=== PATIENT | male | born 1975 | race Caucasian/White ===

== ENCOUNTER 2023-09-19 14:54 | Outpatient (OUT) | payer OTHER, SELFPAY ==
[2023-09-20 04:07] LABS: Testosterone 193 ng/dL (264-916)
== END 2023-09-19 14:55 | disposition home or self-care (01) ==
LOC: LAB 14:57
PROVIDERS: PCP Family Medicine; Visit Provider Family Medicine
DX: Z00.00 Encounter for general adult medical examination without abnormal findings (principal); Z12.5 Encounter for screening for malignant neoplasm of prostate
CPT/HCPCS: 36415; 84403; G0103

== ENCOUNTER 2023-11-16 15:55 | Outpatient (OUT) | payer OTHER, SELFPAY ==
--- OUTSIDE RECORDS SUMMARY | 2023-11-16 16:00 | XMS_ITS | CCD ---
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 Name Role Phone LASHAY, DR MERRITT Admitting Unavailable HOY, DR MERRITT Attending Unavailable HOY, DR MERRITT Primary Care Unavailable HOY, DR MERRITT Consulting Unavailable HOY, DR MERRITT Admitting Unavailable HOY, DR MERRITT Attending Unavailable HOY, DR MERRITT Primary Care Unavailable HOY, DR MERRITT Consulting Unavailable NILL, DR LILLY Admitting Unavailable NILL, DR LILLY Attending Unavailable HOY, DR MERRITT Primary Care Unavailable NILL, DR LILLY Consulting Unavailable HOY, DR MERRITT Admitting Unavailable HOY, DR MERRITT Attending Unavailable HOY, DR MERRITT Primary Care Unavailable HOY, DR MERRITT Admitting Unavailable HOY, DR MERRITT Attending Unavailable HOY, DR MERRITT Primary Care Unavailable HOY, DR MERRITT Consulting Unavailable WEST, DR LEO Nam Consulting Unavailable HOY, DR MERRITT Admitting Unavailable HOY, DR MERRITT Attending Unavailable HOY, DR MERRITT Primary Care Unavailable HOY, DR MERRITT Consulting Unavailable HOY, DR MERRITT Admitting Unavailable HOY, DR MERRITT Attending Unavailable HOY, DR MERRITT Primary Care Unavailable HOY, DR MERRITT Consulting Unavailable Problems Active Problems Problem Classification Problem Date Documented Da te Episodic/Chronic Disorders of lipid metabolism (2 sources) Hyperlipidemia, unspecified; Translations: [Pure hyperglyceridemia] Onset: 04-06-2022 Chronic Esophageal disorders (1 source) Gastro-esophageal reflux disease without esophagitis; Translations: [GERD WITHOUT ESOPHAGITIS] Onset: 11-03-2021 Chronic Residual codes; unclassified (4 sources) Obstructive sleep apnea (adult) (pediatric); Translations: [OBSTRUCTIVE SLEEP APNEA] Onset: 10-10-2022 Chronic Past or Other Problems Problem Classification Problem Date Documented Da te Episodic/Chronic Diabetes mellitus without complication (1 source) Other abnormal glucose; Translations: [OTHER ABNORMAL GLUCOSE] Onset: 04-06-2022 Episodic Nonspecific chest pain (4 sources) Chest pain, unspecified; Translations: [CHEST PAIN UNSPECIFIED] Onset: 11-21-2021 Episodic Other aftercare (1 source) Other long term care pharmacist (current) drug therapy; Translations: [OTH [facility] CURRENT DRUG THERAPY] Onset: 04-06-2022 Episodic Other and unspecified benign neoplasm (4 sources) Benign lipomatous neoplasm of skin and subcutaneous tissue of trunk; Translations: [SOTO LIPOMAT NEOPLSM SKIN SUBQ TRUNK] Onset: 12-14-2021 Episodic Other connective tissue disease (1 source) Pain in arm, unspecified; Translations: [PAIN IN ARM UNSPECIFIED] Onset: 11-24-2021 Episodic Other screening for suspected conditions (not mental disorders or infectious disease) (1 source) Encounter for screening for malignant neoplasm of colon; Translations: [ENC SCREEN MALIG NEOPLASM COLON] Onset: 04-06-2022 Episodic Results Test Name Value Interpretation Reference Range Facility PSA, FREE AND TOTAL RATIOon 04-05-2022 % Free PSA 44.0 % Normal [facility] Comment on above: Result Comment: The table below lists the probability of prostate cancer for men with non-suspicious NELIA results and total PSA between 4 and 10 ng/mL, by patient age (Layo et al, KHALIDA 1998, 279:1542). % Free PSA 50-64 yr 65-75 yr 0.00-10.00% 56% 55% 10.01-15.00% 24% 35% 15.01-20.00% 17% 23% 20.01-25.00% 10% 20% >25.00% 5% 9% Please note: Layo et al did not make specific recommendations regarding the use of percent free PSA for any other population of men. Performed By: #### P SAFREE ####[facility] [address] [place], [place] [address]AnFeliciano Parsons Prostate specific Ag [Mass/Vol] 0.5 ng/mL Normal 0.0-4.0 [facility] Comment on above: Result Comment: Bárbara MCGINNIS methodology. . According to the [employer] [place] [employer], Serum PSA should decrease and remain at undetectable levels after radical prostatectomy. The AUA defines biochemical recurrence as an initial PSA value 0.2 ng/mL or greater followed by a subsequent confirmatory PSA value 0.2 ng/mL or greater. Values obtained with different assay methods or kits cannot be used interchangeably. Results cannot be interpreted as absolute evidence of the presence or absence of malignant disease. Performed By: #### P SAFREE ####[facility] [address] [place] [id number] Parsons PSA, Free 0.22 ng/mL Normal N/A [facility] Comment on above: Result Comment: Bárbara snider ECLIA methodology. Performed By: #### P SAFREE ####[facility] [address] [address]DrFeliciano Parsons BILIRUBIN CONJUGATED (DIRECT )on 04-04-2022 BILI, CONJUGATED 0.1 mg/dL Normal 0.0-0.2 [facility] Comment on above: Performed By: #### D BEBE, LIPID, FT3, TSH, T4, CMP #### [facility] [address] [address] [address] Eryn Parsons CBC AUTO DIFFon 04-04-2022 BASO # 0.0 103/ul Normal 0.0-0.1 [facility] Comment on above: Performed By: #### C BC ####[facility] [address] [address]DrFeliciano Parsons Basophils/100 WBC (Bld) 0.4 % Normal 0.2-2.0 [facility] Comment on above: Performed By: #### C BC ####[facility] [address] [place], [place] [address]DrFeliciano Parsons EO # 0.1 103/ul Normal 0.0-0.7 [facility] Comment on above: Performed By: #### C BC ####[facility] [address] [place] [address]DrFeliciano Parsons Eosinophils/100 WBC (Bld) 1.4 % Normal 0.9-7.0 [facility] Comment on above: Performed By: #### C BC ####[facility] [address] [place] [address]DrFeliciano Parsons Erythrocyte distribution width (RBC) [Ratio] 13.2 % Normal 11.0-15.0 [facility] Comment on above: Performed By: #### C BC ####[facility] [address] [place] [address]DrFeliciano Parsons Hematocrit (Bld) [Volume fraction] 46.1 % Normal 42.0-54.0 [facility] Comment on above: Performed By: #### C BC ####[facility] [address] [place], [place] [address]DrFeliciano Parsons Hemoglobin (Bld) [Mass/Vol] 15.2 g/dL Normal 14.0-18.0 [facility] Comment on above: Performed By: #### C BC ####[facility] [address] [place], [place] [address]DrFeliciano Parsons IG # 0.03 10e3/ul Normal 0.00-0.03 [facility] Comment on above: Performed By: #### C BC ####[facility] [address] [place], [place] [address]Dr. Eryn Parsons IG % 0.4 % Normal 0.0-0.5 [facility] Comment on above: Performed By: #### C BC ####[facility] [address] [place], [place] [address]DrFeliciano Parsons LYMPH # 2.4 103/ul Normal 1.2-3.8 [facility] Comment on above: Performed By: #### C BC ####[facility] [address] [place], [place] [address]DrFeliciano Parsons Lymphocytes/100 WBC (Bld) 31.8 % Normal 20.5-60.0 [facility] Comment on above: Performed By: #### C BC ####[facility] [address] [place], [place] [address]DrFeliciano Parsons MANUAL DIFF REQ NO Normal [facility] Comment on above: Performed By: #### C BC ####[facility] [address] [place], [place] [address]DrFeliciano Parsons MCH (RBC) [Entitic mass] 28.6 pg Normal 25.9-34.0 [facility] Comment on above: Performed By: #### C BC ####[facility] [address] [place] [address]Dr. Eryn Parsons MCHC (RBC) [Mass/Vol] 33.0 g/dL Normal 29.9-35.2 [facility] Comment on above: Performed By: #### C BC ####[facility] [address] [address]Dr. Eryn Parsons MCV (RBC) [Entitic vol] 86.8 fL Normal 80.0-94.0 [facility] Comment on above: Performed By: #### C BC ####[facility] [address] [place], [place] [address]DrFeliciano Parsons MONO # 0.6 103/ul Normal 0.3-0.8 [facility] Comment on above: Performed By: #### C BC ####[facility] [address] [place], [place] [address]Dr. Eryn Parsons Monocytes/100 WBC (Bld) 7.2 % Normal 1.7-12.0 [facility] Comment on above: Performed By: #### C BC ####[facility] [address] [place], [place] [address]DrFeliciano Parsons NEUT # 4.5 103/ul Normal 1.4-6.5 [facility] Comment on above: Performed By: #### C BC ####[facility] [address] [place], [place] [address]Dr. Eryn Parsons Neutrophils/100 WBC (Bld) 58.8 % Normal 43.0-75.0 [facility] Comment on above: Performed By: #### C BC ####[facility] [address] [place], [place] [address]DrFeliciano Parsons Platelet mean volume (Bld) [Entitic vol] 10.1 fL Normal 9.5-13.5 [facility] Comment on above: Performed By: #### C BC ####[facility] [address] [place], [place] [address]Dr. Eryn Parsons PLT 258 103/ul Normal 150-450 [facility] Comment on above: Performed By: #### C BC ####[facility] [address] [place] [id number]. Eryn Parsons RBC 5.31 106/ul Normal 4.70-6.10 [facility] Comment on above: Performed By: #### C BC ####[facility] [address] [place] [id number] Parsons WBC 7.6 103/ul Normal 4.0-11.0 [facility] Comment on above: Performed By: #### C BC ####[facility] [address] [place] [id number]. Eryn Parsons FREE T3on 04-04-2022 FREE T3 2.69 pg/mlL Normal 2.18-3.98 [facility] Comment on above: Performed By: #### D BEBE, LIPID, FT3, TSH, T4, CMP #### [facility] [address] [address] [address] Eryn Parsons GLYCOHEMOGLOBIN A1Con 2021 ADA RECOMMENDATION SEE BELOW Normal [facility] Comment on above: Result Comment: ADA RECOMMENDED LIMIT 4.0 - 6.0 ADA THERAPEUTIC TARGET < 7.0 ACTION SUGGESTED > 7.0 Performed By: #### A 1C ####[facility] [address] [place] [id number] Parsons Glucose [Mass/Vol] 117 mg/dL Normal [facility] Comment on above: Performed By: #### A 1C ####[facility] [address] [place] [id number]. Eryn Parsons HbA1c (Bld) [Mass fraction] 5.7 % Normal 4.5-6.2 [facility] Comment on above: Performed By: #### A 1C ####[facility] [address] [place] [address]Dr. Eryn Parsons LIPID PROFILEon 04-04-2022 CHOL-HDL RATIO NORM SEE BELOW Normal [facility] Comment on above: Result Comment: 3.3 - 4.4 LOW RISK 4.4 - 7.1 AVERAGE RISK 7.1 - 11.0 MODERATE RISK >11.0 HIGH RISK Performed By: #### D BEBE, LIPID, FT3, TSH, T4, CMP #### [facility] [address] [place] [address] Dr. Eryn Parsons Cholesterol [Mass/Vol] 212 mg/dL Critically high <=200 [facility] Comment on above: Performed By: #### D BEBE, LIPID, FT3, TSH, T4, CMP #### [facility] [address] [place] [address] Dr. Eryn Parosns Cholesterol in HDL [Mass/Vol] 45 mg/dL Normal 40-60 [facility] Comment on above: Performed By: #### D BEBE, LIPID, FT3, TSH, T4, CMP #### [facility] [address] [place] [address] Dr. Eryn Parsons Cholesterol in LDL [Mass/Vol] 128.2 mg/dL Normal [facility] Comment on above: Performed By: #### D BEBE, LIPID, FT3, TSH, T4, CMP #### [facility] [address] [place] [address] Dr. Eryn Parsons Cholesterol.total/ Cholesterol in HDL [Mass ratio] 4.7 {ratio} Normal [facility] Comment on above: Performed By: #### D BEBE, LIPID, FT3, TSH, T4, CMP #### [facility] [address] [place] [address] Dr. Eryn Parsons HDL NORMAL > or = 60 mg/dl - LO W CARDIOVASCULAR RISK <40 mg/dl - HIGH CARDIOVASCULAR RISK Normal [facility] Comment on above: Performed By: #### D BEBE, LIPID, FT3, TSH, T4, CMP #### [facility] [address] [place] [address] Dr. Eryn Parsons LDL CALC NORMAL SEE BELOW Normal [facility] Comment on above: Result Comment: <100 mg/dl OPTIMAL 100 - 129 mg/dl NEAR OR ABOVE OPTIMAL 130 - 159 mg/dl BORDERLINE HIGH 160 - 189 mg/dl HIGH >190 mg/dl VERY HIGH Performed By: #### D BEBE, LIPID, FT3, TSH, T4, CMP #### [facility] [address] [address] [address] Eryn Parsons Triglyceride [Mass/Vol] 194 mg/dL Critically high <=150 [facility] Comment on above: Performed By: #### D BEBE, LIPID, FT3, TSH, T4, CMP #### [facility] [address] [address] [address] Eryn Parsons VLDL CALC 38.8 mg/dL Normal [facility] Comment on above: Performed By: #### D BEBE, LIPID, FT3, TSH, T4, CMP #### [facility] [address] [place] [address] Dr. Eryn Parsons OCC BLD IMMUNO SCREENon 03-22 OCCULT BLOOD Negative Normal NEGATIVE [facility] Comment on above: Performed By: #### O BSCRN #### [facility] [address] [place] [address] Dr. Eryn Parsons PROF 14(COMP METB)on 022 Albumin [Mass/Vol] 4.1 g/dL Normal 3.4-5.0 [facility] Comment on above: Performed By: #### D BEBE, LIPID, FT3, TSH, T4, CMP #### [facility] [address] [place] [address] Dr. Eryn Parsons Albumin/Globulin [Mass ratio] 1.2 {ratio} Normal [facility] Comment on above: Performed By: #### D BEBE, LIPID, FT3, TSH, T4, CMP #### [facility] [address] [place] [address] Dr. Eryn Parsons ALP [Catalytic activity/Vol] 81 U/L Normal 46-116 [facility] Comment on above: Performed By: #### D BEBE, LIPID, FT3, TSH, T4, CMP #### [facility] [address] [place] [address] Dr. Eryn Parsons ALT [Catalytic activity/Vol] 64 U/L Critically high 16-63 [facility] Comment on above: Performed By: #### D BEBE, LIPID, FT3, TSH, T4, CMP #### [facility] [address] [place], [place] [id number] Dr. Eryn Parsons Anion gap [Moles/Vol] 12.2 mmol/L Normal [facility] Comment on above: Performed By: #### D BEBE, LIPID, FT3, TSH, T4, CMP #### [facility] [address] [place] [address] Dr. Eryn Parsons AST [Catalytic activity/Vol] 25 U/L Normal 15-37 [facility] Comment on above: Performed By: #### D BEBE, LIPID, FT3, TSH, T4, CMP #### [facility] [address] [place] [address] Dr. Eryn Parsons Bilirubin [Mass/Vol] 0.4 mg/dL Normal 0.2-1.0 [facility] Comment on above: Performed By: #### D BEBE, LIPID, FT3, TSH, T4, CMP #### [facility] [address] [place] [address] Dr. Eryn Parsons Calcium [Mass/Vol] 9.2 mg/dL Normal 8.5-10.1 [facility] Comment on above: Performed By: #### D BEBE, LIPID, FT3, TSH, T4, CMP #### [facility] [address] [place] [address] Dr. Eryn Parsons Chloride [Moles/Vol] 103 mmol/L Normal 98-107 [facility] Comment on above: Performed By: #### D BEBE, LIPID, FT3, TSH, T4, CMP #### [facility] [address] [place] [address] Dr. Eryn Parsons CO2 [Moles/Vol] 28.7 mmol/L Normal 21.0-32.0 [facility] Comment on above: Performed By: #### D BEBE, LIPID, FT3, TSH, T4, CMP #### [facility] [address] [place] [address] Dr. Eryn Parsons Creatinine [Mass/Vol] 1.00 mg/dL Normal 0.70-1.30 [facility] Comment on above: Performed By: #### D BEBE, LIPID, FT3, TSH, T4, CMP #### [facility] [address] [address] [address] Eryn Parsons EGFR-AF URUGUAYAN >60 Normal >=60 [facility] Comment on above: Performed By: #### D BEBE, LIPID, FT3, TSH, T4, CMP #### [facility] [address] [place] [address] Dr. Eryn Parsons EGFR-NON AF URUGUAYAN >60 Normal >=60 [facility] Comment on above: Performed By: #### D BEBE, LIPID, FT3, TSH, T4, CMP #### [facility] [address] [place] [address] Dr. Eryn Parsons Globulin (S) [Mass/Vol] 3.5 g/dL Normal [facility] Comment on above: Performed By: #### D BEBE, LIPID, FT3, TSH, T4, CMP #### [facility] [address] [place] [address] Dr. Eryn Parsons Glucose [Mass/Vol] 97 mg/dL Normal 74-106 [facility] Comment on above: Performed By: #### D BEBE, LIPID, FT3, TSH, T4, CMP #### [facility] [address] [place] [address] Dr. Eryn Parsons Potassium [Moles/Vol] 3.9 mmol/L Normal 3.5-5.1 [facility] Comment on above: Performed By: #### D BEBE, LIPID, FT3, TSH, T4, CMP #### [facility] [address] [place] [address] Dr. Eryn Parsons Protein [Mass/Vol] 7.6 g/dL Normal 6.4-8.2 [facility] Comment on above: Performed By: #### D BEBE, LIPID, FT3, TSH, T4, CMP #### [facility] [address] [place] [address] Dr. Eryn Parsons Sodium [Moles/Vol] 140 mmol/L Normal 136-145 [facility] Comment on above: Performed By: #### D BEBE, LIPID, FT3, TSH, T4, CMP #### [facility] [address] [place] [address] Dr. Eryn Parsons Urea nitrogen [Mass/Vol] 14.0 mg/dL Normal 7.0-18.0 [facility] Comment on above: Performed By: #### D BEBE, LIPID, FT3, TSH, T4, CMP #### [facility] [address] [place] [address] Dr. Eryn Parsons Urea nitrogen/Creatinin e [Mass ratio] 14.0 mg/mg Normal [facility] Comment on above: Performed By: #### D BEBE, LIPID, FT3, TSH, T4, CMP #### [facility] [address] [place] [address] Dr. Eryn Parsons T4on 04-04-2022 T4 [Mass/Vol] 7.40 ug/dL Normal 4.50-12.10 [facility] Comment on above: Performed By: #### D BEBE, LIPID, FT3, TSH, T4, CMP #### [facility] [address] [place] [address] Dr. Eryn Parsons TSHon 04-04-2022 TSH 2.794 uIU/mL Normal 0.358-3.740 [facility] Comment on above: Performed By: #### D BEBE, LIPID, FT3, TSH, T4, CMP #### [facility] [address] [place] [address] Dr. Eryn Parsons TSH RANGE SEE BELOW Normal [facility] Comment on above: Result Comment: <0.3 4 UIU/ml HYPERTHYROID 0.34-5.60 UIU/ml EUTHYROID >5.60 UIU/ml HYPOTHYROID Performed By: #### D BEBE, LIPID, FT3, TSH, T4, CMP #### [facility] [address] [place] [address] Dr. Eryn Parsons ED Noteon 02-16-2022 ED Note-Physician Basic Information Time Seen: Carrie Pat PA-C 10/24/2021 12:08 Chief Complaint chest pain started last night around 6pm with L arm numbness/tingling since 0630 this morning. denies SOB. 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 denies N/V/D. History of Present Illness Patient is a 46-year-old male with a history of HTN, HLD, GERD who presents the ED today from home with his for complaint of chest pain since 1800 yesterday. He says he was sitting on the couch yesterday watching TV when it felt like something was squeezing and sitting on my chest . Patient tells me the sensation has been constant since then. He went to sleep with it and awoke with it. He did not come to the ED last night because he thought it was his GERD. His encouraged him to come to the ED today because chest pain is now associated with left arm numbness and tingling. He took 2 baby aspirin yesterday and 1 this morning. He has not tried any other medications. Patient also endorses nonproductive cough and generalized headache that began yesterday. He localizes the headache to right posterior occiput. He says that his chest pain is more bothersome than the headache. Patient denies vision changes, speech changes, dizziness, lightheadedness, syncope, shortness of breath, palpitations abdominal pain, nausea, vomiting, diarrhea. His last bowel movement was yesterday evening it was normal. Patient denies any trauma or injury. Patient denies any recent travel, tobacco use history of bleeding or clotting disorders. He says that his mother has had multiple CVAs that began in her 30s. He has a strong family history of both CAD, HTN and TN. Review of Systems ROS: Constitutional: Denies fever, chills, malaise, weight changes, night sweats HEENT: + Headache. Denies vision changes, diplopia, sore throat, nasal congestion, sinus pain/pressure Pulm: + Nonproductive cough. Denies SOB, hemoptysis, wheezes, tobacco use CVS: Denies CP, palpitations, edema GI/: Denies abd pain, N/V/D, constipation, black/bloody stools, dysuria, hematuria MSK/Skin/Lymph: Denies injury/trauma, rashes, wounds, swollen lymphnodes Neuro/Psych: + Left arm numbness and tingling. Denies weakness, lightheadedness, dizziness, syncope, SI/HI Physical Exam Vitals & Measurements T: 36.9 ?C(Oral) HR: 82(Peripheral) RR: 18 BP: 125/77 SpO2: 98% HT: 178.0 cm HT: 178 cm WT: 107.2 kg WT: 107.2 kg BMI: 33.83 Appearance: Overweight, nontoxic-appearing, alert and oriented x3. Speaking in complete sentences. Calm. Cooperative. Vital signs reviewed, WNL Skin: Warm, dry, intact. Normal for ethnicity. No ecchymosis, open wounds, or rashes. Head: Normocephalic, atraumatic NECK: Supple. Nml Inspection with good ROM, no meningismus or palpable adenopathy Eyes: EOMI, PERRLA. Vision grossly intact. No nystagmus Respiratory: LCTA b/l with normal bilateral excursion. No wheezes, rhonchi, rales. Cardiovascular: RRR, no murmurs. 2+ symmetrical radial and dorsalis pedis pulses. Normal cap refill. No LE edema. Chest wall: Normal chest wall appearance and motion. Abdomen/GI: Soft, nontender, nondistended. No guarding, rigidity, rebound tenderness. NABS x4. No masses or organomegaly. Neuro: NIHSS stroke scale score 0. Oriented x 3, Speech Clear, cranial nerves grossly intact. Normal sensation to light touch in all 4 extremities. Extremities: 5 out of 5 strength bilateral upper extremities. No deformity noted on exam. Patient spontaneously moves all 4 extremities. Psych: Anxious mood. Affect appropriate to context. Denies SI/HI. Medical Decision Making Patient is a 46-year-old male presents the ED for chest pain and left arm numbness associated with headaches. Patient symptoms could be concerning for CVA, ACS, musculoskeletal strain, PE, cervical radiculopathy. Patient CBC is completely normal, D-dimer is negative electrolytes with no significant abnormalities. Troponin is negative. Head CT shows no acute intracranial process. Chest x-ray negative for any acute cardiopulmonary process. I suspect the patient's numbness may be secondary to a cervical radiculopathy. He he has a large lipoma on his back I do not think that this is causing and I think more likely is probably chronic changes in his cervical spine that may have not been evaluated or diagnosed yet. Patient's chest pain could be his GERD. I do not think that it is ACS he has had 2 - troponins and a normal ECG. PEs negative. Chest x-ray is normal so pneumonia and effusion are very unlikely. Patient's lipase level is normal. I considered gallbladder disease however he has no RUQ tenderness nor back pain and he said he has had a decreased appetite he is only been drinking bland foods in the past few days. It could be Covid we did not test for that here in the ED today. Assessment/Plan 1. Chest pain, unspecified (R07.9: Chest pain, unspecified) 2. Left arm numbness (R20.0: Anesthesia of skin) Orders: Al hydroxide/Mg hydroxide/simethicone, 30 mL, Susp-Oral, Oral, Once, Stop d (more content not included)... Normal [facility] Comment on above: Result Comment: Elec tronically Signed By: Hamida Zimmerman\.br\Date and Time Signed: 02/16/22 07:01 EDT\.br\Electronically Co-Signed By: Jac Doty DO\.br\Date and Time Co-Signed: 02/17/22 07:26 EDT Ambulatory Visit Summaryon 0 12-27-2021 Ambulatory Visit Summary FRANK LUO :1975 Visit Date:12/27/2021 Ambulatory Visit Instructions Your Care Team Attending Physician - CATALINA JACKMAN, Vijaya Cronin Primary Care Physician - Shaina Norman MD This Is Your Medications List amlodipine aspirin (aspirin 81 mg Oral EC Tab) dexlansoprazole (Dexilant) olmesartan ranitidine simvastatin (simvastatin 20 mg Tab) ubiquinone (Co Q-10) Procedures Performed Excision of lipoma (12/14/2021), Excision of lipoma of back (12/14/2021), EGD - Esophagogastroduodenoscopy (11/26/2018), Extraction of wisdom tooth, Tonsillectomy. Discharge Vitals Temperature (Temporal Artery) 36.1 ?C Medications What How Much When Instructions Unchanged amlodipine 10 Milligram By Mouth Every day Unchanged aspirin (aspirin 81 mg Oral EC Tab) 1 Tablets By Mouth Every day Unchanged dexlansoprazole (Dexilant) 60 Milligram By Mouth Every day Unchanged olmesartan 20 Milligram By Mouth Every day Unchanged ranitidine 150 Milligram By Mouth 2 times a day Unchanged simvastatin (simvastatin 20 mg Tab) 1 Tablets By Mouth Once a day (at bedtime) Unchanged ubiquinone (Co Q-10) 100 Milligram By Mouth Every day Allergies No Known Allergies Problems Ongoing - Any problem that you are currently receiving treatment for. BMI 34.0-34.9,adult Carbuncle Chest pain Contusion of multiple sites of right lower extremity Hemorrhoids Hx of gastroesophageal reflux (GERD) Hyperlipidemia Hypertriglyceridemia Lipoma of back Lipoma of flank Historical - Any problem that you are no longer receiving treatment for. acid reflux High Cholesterol HTN Normal [facility] General Surgery Office/Clini c Noteon 12-27-2021 General Surgery Office/Clinic Note Chief Complaint post operative folow up HPI Staff 13 day post operative follow up post excisional biopsy lipoma left flank and upper mid back. Minimal tenderness. Denies bleeding or drainage. History of Present Illness almost 2 weeks s/p excisional biopsy lipomas left flank and mid upper back; doing well, minimal soreness, no drainage; pathology consistent with lipomas. Review of Systems ROS - Provider Constitutional: no fever, no sweats, no weight loss. Eyes: no glasses, no blurred vision, no visual loss. ENMT: no dentures, no hoarseness, no swallowing difficulties, no hearing loss, no ear infection(s), no nose bleeds. Cardiovascular: normal blood pressure, no chest pain, regular heartbeat, no heart murmur. Respiratory: no shortness of breath, no cough, no asthma, no wheezing. Gastrointestinal: no nausea, no vomiting, no diarrhea, no constipation, no blood in stool, no change in bowel habits, no abdominal pain, no hepatitis. Genitourinary: no kidney stones, no urine infection, no dysuria. Musculoskeletal: no pain, no weakness. Skin: no changing moles, no rash, no skin lumps. Neurologic: no seizures, no epilepsy, no headache. Psychiatric: no emotional or psychiatric problem. Heme/Lymph: no bleeding problems, no anemia, no blood clots, no transfusions. Allergy/Immunologic: no swollen lymph nodes/glands, no IV drug abuse. Other: Additional ROS info: Except as noted in the above Review of Systems and in the History of Present Illness, all other systems have been reviewed and are negative or noncontributory. Physical Exam Vitals & Measurements T: 36.1 ?C(Temporal Artery) skin: incisions healing well, no drainage, minimal erythema around sutures Assessment/Plan 1. Lipoma of back, (D17.1: Benign lipomatous neoplasm of skin and subcutaneous tissue of trunk) sutures removed, doing well, call with problems/questions Lipoma of flank see # 1 Follow-up With When Contact Information CATALINA JACKMAN, Vijaya rConin, PILO Only if needed [address] [place] [address]- Additional Instructions: Problem List/Past Medical History Ongoing BMI 34.0-34.9,adult Carbuncle Chest pain Contusion of multiple sites of right lower extremity Hemorrhoids Hx of gastroesophageal reflux (GERD) Hyperlipidemia Hypertriglyceridemia Lipoma of back Lipoma of flank Historical acid reflux High Cholesterol HTN Procedure/Surgical History Excision of lipoma (12/14/2021), Excision of lipoma of back (12/14/2021), EGD - Esophagogastroduodenoscopy (11/26/2018), Extraction of wisdom tooth, Tonsillectomy. Medications amlodipine, 10 mg, Oral, Daily aspirin 81 mg Oral EC Tab, 81 mg= 1 tab(s), Oral, Daily Co Q-10, 100 mg, Oral, Daily Dexilant, 60 mg, Oral, Daily olmesartan, 20 mg, Oral, Daily ranitidine, 150 mg, Oral, BID simvastatin 20 mg Tab, 20 mg= 1 tab(s), Oral, Once a day (at bedtime) Allergies No Known Allergies Social History Alcohol - Denies Alcohol Use, 11/29/2021 Substance Abuse - Denies Substance Abuse, 11/29/2021 Tobacco Never (less than 100 in lifetime) Tobacco Use:. Never Smokeless Tobacco Use:., 11/29/2021 Family History Diabetes mellitus type 2: Father. Immunizations Vaccine Date Status influenza virus vaccine, inactivated 08/2021 Recorded Normal [facility] Comment on above: Result Comment: Elec tronically Signed By: CATALINA JACKMAN, Vijaya Cronin\.br\Date and Time Signed: 12/27/21 15:53 EST Pathology Noteon 12-20-2021 Pathology Note [id number]#[id number]:127 Normal [facility] Operative Reporton Operative Report [id number]#[id number]:127 [facility] Consent for Procedure/Surger yon 11-30-2021 Consent for Procedure/Surgery [id number]#[id number]:127 [facility] Ambulatory Visit Summaryon 0 11-29-2021 Ambulatory Visit Summary FRANK LUO :1975 Visit Date:11/29/2021 Ambulatory Visit Instructions Your Care Team Attending Physician - CATALINA JACKMAN, Vijaya Cronin Primary Care Physician - Shaina Norman MD This Is Your Medications List Contact prescribing physician if questions or concerns amlodipine aspirin (aspirin 81 mg Oral EC Tab) dexlansoprazole (Dexilant) olmesartan ranitidine simvastatin (simvastatin 20 mg Tab) ubiquinone (Co Q-10) Procedures Performed EGD - Esophagogastroduodenoscopy (11/26/2018), Extraction of wisdom tooth, Tonsillectomy. Discharge Vitals Temperature (Temporal Artery) 36.3 ?C Heart Rate (Peripheral) 68 Respiratory Rate 16 Blood Pressure 124/70 Height 180 cm Height 180.0 cm Weight 111.4 kg Weight 111.4 kg BMI 34.38 Medications What How Much When Instructions Unchanged amlodipine 10 Milligram By Mouth Every day Contact prescribing physician if questions or concerns Unchanged aspirin (aspirin 81 mg Oral EC Tab) 1 Tablets By Mouth Every day Contact prescribing physician if questions or concerns Unchanged dexlansoprazole (Dexilant) 60 Milligram By Mouth Every day Contact prescribing physician if questions or concerns Unchanged olmesartan 20 Milligram By Mouth Every day Contact prescribing physician if questions or concerns Unchanged ranitidine 150 Milligram By Mouth 2 times a day Contact prescribing physician if questions or concerns Unchanged simvastatin (simvastatin 20 mg Tab) 1 Tablets By Mouth Once a day (at bedtime) Contact prescribing physician if questions or concerns Unchanged ubiquinone (Co Q-10) 100 Milligram By Mouth Every day Contact prescribing physician if questions or concerns Allergies No Known Allergies Problems Ongoing - Any problem that you are currently receiving treatment for. BMI 34.0-34.9,adult Carbuncle Chest pain Contusion of multiple sites of right lower extremity Hemorrhoids Hx of gastroesophageal reflux (GERD) Hyperlipidemia Hypertriglyceridemia Historical - Any problem that you are no longer receiving treatment for. acid reflux High Cholesterol HTN Normal [facility] ECHOCARDIO M/2D COMPLETEon 0 11-21-2021 ECHOCARDIO M/2D COMPLETE Patient: FRANK LUO Exam Date: 11/21/2021 : 1975 Gender:M Ordering : DR SHAINA NORMAN . Admission #: [id number] Family : Order #: [id number] CLICK HERE TO VIEW EXAM ECHOCARDIOGRAM REPORT PROCEDURE: CARDIO PULMONARY ECHOCARDIO M/2D COMP INDICATIONS: Chest pain, hypertension COMPARISON: None. DESCRIPTION: COMPLETE ECHOCARDIOGRAM Real-time transthoracic echocardiography with 2D, M-mode, spectral and color flow Doppler performed. QUALITY: Technical quality was good. LEFT VENTRICLE: Normal chamber size. Normal left ventricular wall thickness. Global left ventricular systolic function is normal. Calculated left ventricular ejection fraction is 60% LV EF: Normal left ventricular ejection fraction, (>55%). DIASTOLIC: Normal diastolic function. ATRIAL SEPTUM: Visually appears intact. LEFT ATRIUM: Normal chamber size. RIGHT ATRIUM: Normal chamber size. RIGHT VENTRICLE: Normal chamber size. Normal right ventricular systolic function. TRICUSPID VALVE: Normal mobility and thickness. No stenosis with trivial regurgitation. No evidence of pulmonary hypertension. MITRAL VALVE: Normal mobility and thickness. No evidence of mitral valve stenosis. There is no mitral annular calcification. Trivial mitral regurgitation. AORTIC VALVE: Normal trileaflet appearance. No visible sclerosis. Normal leaflet mobility. No evidence of aortic valve stenosis. No aortic regurgitation. AORTIC ROOT: Normal diameter and appearance. Ascending aorta is normal in size. PULMONIC VALVE: Normal thickness and mobility. No stenosis. Trivial regurgitation. PERICARDIUM: No evidence of pericardial effusion. IVC: Collapses with inspirations. IVC is normal in size. CONCLUSION: Global left ventricular systolic function is normal; visually estimated ejection fraction is 55 to 60%. No significant wall motion abnormalities. Normal diastolic function. The right ventricle is normal in size and systolic function. No significant valvular abnormalities. Adult Echocardiography Procedure Report Left Ventricle LVEDD (3.7 - 5.6 cm): 4.82 cm LVESD (2.2 - 4.0 cm): 2.63 cm LVIVS thickness (0.6 - 1.2 cm): 9.20 mm LVPW thickness (0.5 - 1.0 cm): 9.52 mm e': 15.10 cm/s E - e': 5.40 LVOT Area (cm2): 4.15 cm2 LVOT Diameter 2.30 cm Left Ventricular Ejection Fraction: 76.80 % Left Atrium LA Volume Index (2D A2C): 30.50 ml/m2 Left Atrium Systolic Dimension: 4.50 cm Left Atrium Systolic Area(A2C): 21.10 cm2 Left Atrium Systolic Area(A4C): 17.20 cm2 Left Atrium Systolic Volume(A2C): 53540 mm3 Left Atrium Systolic Volume(A4C): 60000 mm3 Mitral Valve MV E to A Ratio: 1.60 Mitral Valve A-Wave Peak Velocity: 51.30 cm/s Mitral Valve E-Wave Peak Velocity: 80.90 cm/s Deceleration Time: 169 ms Right Ventricle Aorta AO Root Diam: 3.10 cm Aortic Valve AoV Area (Peak Justin): 3.39 cm2 Peak Velocity(Antegrade Flow): 118.00 cm/s Peak Gradient(Antegrade Flow): 6 mm[Hg] Tricuspid Valve Pulmonic Valve Peak Velocity: 156.00 cm/s Peak Gradient: 10 mm[Hg] Right Atrium Dictated by: Trisha Wilcox M.D. on 11/21/2021 at 15:49 Approved by: Trisha Wilcox M.D. on 11/21/2021 at 15:51 Normal [facility] Physician Referralon [facility] Physician Referral [id number]#[id number]:127 Normal [facility] Coding Summary.on 11-01-2021 Coding Summary. [id number] Gh0bWw+PG hlYWQ+RF9OIRMiM59qdHWxwU7BA6b CWZ5TXTVLNLTUSH7IDE2dyAM3XXrw E6JchrIz PvtgiCZzOX55HOg1FLC9qPzgDLhiu G9pxWItF8o1SpWhVW55lT19CBpyXQ NtKaW6MkPoympkjTOu R6ooEaZtpZDvZbt+PHRhYmxlIHdpZ DWyBYhvHYEsYwYvxBhnJN9rSg1zOZ VyLWNvbGxhcHNlOiBj b5dgCQEhMKiiEZ6goSxuF1EolNE9V KPrf8g5Jr08qNY+TYKqTPE8sEwxQA djd621MfXpw2amSSS9 yUOdCWtyNEH0D62ki1X7IKNgBSVoL CA0bJY8zA8xrCgrrizhC5PwpIVkZn Z2FJD2gEUxoF1ypJbt fbdhfA0iSfz+P59THU8EAPBBQV6YQ qt7Y1HcZigtoEH+WT72VQKxOL85lI YmcGXji7qpoDv5GcNy JSOvDNV0fKrbKZsnw0AzFMCaZ17lm YQnb0N7RWKkeKyhfEIlFhHgsYU3hV 6uLKixakbgl6bgbyxm Bwpzi2wxxq21gH99B41aAZcaKIUuK CP1TOCiAPSruHobhj9dlC7vAa7+ID orx2rna4avzMm9BePe JLLgyzRiuOjpOUN4e0UeXg65A5Yxz Hzva2YcPej6qb07qWObg1R9eJR1RY scSQQfrL7nQHajCcD2 XGIfSePfgP81qCEoMRynQt8swTxlk IpzEL7yUHWwpivuPFMyaR8iTQDxjY HyvNxqZS8xKYOqjmso o486UfBrAJM6XIJqrKQoG4SgmV6mP vVlZLAnHZBfK7DqkDPtFAfjI669BC yvLvK5COQuahKdD5Vv DEQaiTemCqK7s2Z5Tv0Mj7TshiobE OH5AKasOHXtTgPvCgAkIgI6H7OjKd e3XAGtuCkfKF9vT9Xo JNNrdrbnpvegvQR3UMBtMDDrzY31j CFwZNhvKe0sm1G2x116CJYyXCCljN 52Ap1baNsjRJSisAKV dB9kqooxg2jjoflbUkZqEJPzCIe8T Gk3YRJxyUxgEdUsHQZ5QuG1FDD5wW AekK3uqSemtcienO4w Oyc+A96owO6kQUK8HNH9rnsuCUXrq vCqIV85PS61T7ZnSrruvGNwyNR+PG AxbyQzoUxcJU4mAzTd q3eyi0IzGMmiT9VtTMWyARxzNtq3U IRsCQE5eHJ1uX4ySGAvGBkuu8Z3kC X8B0RzyzUgns6bx1ui VHOwSXsrX17wdVYdp1Z9ZPMkxRY0B QZxkRatJeBkvA67Zfc+PGNvbGdyb3 PfVojjy3ges1fszJg1 WpEmRLCytdIcbLkvCOA9e6TwDw66I 29sIHdpZHRoPSIxNSUiIHZhbGlnbj 7dwM7iZi9+PGNvbCB3 yRE8nN6qKUUsGiA8UVfyM629TkWfi MHwIbgxl9acn3iygQw1FuPhGILkmf SrzMgxRUM8l1BvDt15 R01fOHvpCGAgALPwTXSyUCHpzVbnd m9rfP4rLh4+FC9xy1omdn42bO10bV I+XUXeCNI7xCwdTDuc FMPphP3xIOqfSrZ4KRQkOpRhnH21m BZsYZfgWx0jbStwcFwqWT0mWYUdzu ndh149RcZni4zrULOh yXIwGFwfQCG7M80ix4V7EXOePZQtS JP5zSC6nE9hcHyctkueaALwgLkrna UkqHmoSAhnUFyiL272 OZTjjWrcTcUelNpuvxZtRrJqNCg1S 0DgIjs8EHVseMddVK5zgWOnYAblOb 2ixTaoaWnpIA9gNBTb rkmrb473McGsj3wmFMQhlVPqFRzgA XY3W26ud1U0RMTrLIKkBXK7tSY1pJ 1hbGlnbjogbGVmdDsg blFuhFzcKCnzCXqlU858OQUznBonC oQwykFcIQQccSE0RM45PE78mOPtr0 X6iIO4P0EyNREefyem mwdbcJR7ELVdJRVzlR33Yr5fqMytC k0gOUCfBSN3XQZxiAPpI8AdwZ4xDr HcZVBjWDHjN6PsoSIa OWeqJ166POxfGlS4WPZxjoEzS7AlS CZwzQbzBjI5z5W4Nh1OR5G8SV44TS 67cOPuh0V6sKO9M4Ew JSDiogvxnmapaQT2QOBrHXQenG83U x6xqXfgOi8hUCQhKZU6FGYicVBcX1 XarJ5rAqAnXTUhCZFy A4AdpELhNSmzT800LZnbAiA3OKIis mXpM7TtJJTstHzmPzC2j8Y8Xh2GOF b5QA75WW41pRHdh0H5 pOI5P0CsRZHsarbywkkvvGR4JIOvN AXnsD24Rk5vlRurAf0aIYFbVFD7TI PexCSzX7HeyK7sKlAl AJMfBSJpH7WocZZkQAwbZ477FZulM nO7QGPtgzTgE4DeSZBmwVrmGlB6h5 J7Wy5TAQEzSO26GTG5 pDF8DK17NK00E7SjHixefYDylRL+P HRhYmxlIHdpZHRoPScxMDAlJyBzdH ynBP4qLe3uRKGrEQRv xWvamBKkYaUxn9kkMDQgPGbpVT4fi HiiK9TqhSK9ZKRmo4j8Iq52E65sY7 JvdXA+JHFpeSR4qOL3 dD9rMjFoOcJ3NHlrZ165MeNduKHsL bvzd0jxi5qtkOn3CfO1SKHgokCdtP tbZNJ7a1YfLu18H21e TObeIUGeSHHeKOIeAZOuhRzcsd0ld G9wIi8+WPLrdDD3yYD7vI3aAcXmWy F5QMzdH737IrOigKCg Yzzaa5bri1tfoZp6QcHaRJFunlAcm HglGGV0u1ZqRw56H4QxeEibb5OeVr j6rt91uTIkp5F5aEJ3 L1CjMPOwdpwplJAufJcbAJ3nTXVrp rfbYBRxrI2uQUMfK1h6DmXxIrO1FM ugI6VvimT1THUzcOSr PFslQJI1D77bi6H2MPUsNXRiJJP3p SS1rB1qnDitfvgxwWJioRyybmHdcS giXZtdVNlmI179ACGu yLcfZTNlsU8uMFPyjOQrfHzcES3gK USvnoalRxADBBNkKHJWQMKOQQS2Q0 RnKil7VFZeeXckXS6p xUUhFZceLb8ccSbmdAzgLT5wZKWdz ystPKPpaF0fNDWxeSTamGczEZ8sPL Irosdxv146MaAePYZ6 JYWkmOOsL5RpuR9dIuSkEQQxEXNkG 7AnfCGvFFzbT306KIgkBeE5WDSwxf SsN8DrFENnuIubFzC5 j1J5Ap4aPj5lFD0eYOt1SX84HX72g MOnw1H0jRY9V6JnJOFyadnrrnwmkM K8EEEzHURicV48jBFw MNuxFv2hk3P0w861BBYlTWKrhJ97A m2aqIkvLINgcGMQmY4ftpjrj8mqtx hxHlWjLWMgAXp5JRl5 LDExzWchRmCdZXS1TaC4WBH9zBZyk H2leBxivyascG8sFam+NDQgWWVhcn I5D9WgKzc4HNHutGem OD1jjALlERspMe8kwSojyWcnQJ0aZ XUqqiosFJFhqT5bHXDfwUJvzLprDD 7bUPFltcfwz554VeWf MTF3ABAlnRQyN6LoxR3fNdAyUGDpY TRiS2ByzQHmPGowA267TFbfTbQ5BA SquoJxV0GwTRGioZnj PmU7q2K0As1YXSqrZX43HZ52nQHjz 2Y0xYX4T9FmDJZazcxnbwthkVE7WT XbPLPiwE65eVAzCJkn Ov3lq3L6y362XDEqJDUmoE38Tx4ol IigUPNibYLHzP1hozogg0ccjjvbFo UqKZMqDNe0BQe4WYKb yZbgHcLfKTA0WoE2AFP8xOFsdH7aw JewqkcgnX8gWlq+NB2opoyuwkS9MT 04PJ68U8DpSzoetFFf bGU+PHRhYmxlIHdpZHRoPScxMDAlJ aSefEicHE7kMk4zSWSvRWAjwNopyT DaJyYuo6ojDZEtCGqj NU5gkZkkR4UtgZR5ZYAvd8e3Iz66D 54dP2GqmGC+QMKowXF9kEA0rV5fJz XsNeX0UMmpE996ArYu kBCoBridz6wsr5eavRe5NwEeUMFno nIjlOtvGXT5j3YzQy44G68pGOzoEO RoPSIyMCUiIHZhbGln ux0uyA2jSl1+ENKqcUK9oZM2vS4rI xLfTyB6TEnbK530XdWrtSMvXavxX6 5rS6NseXD+PHRyPjx0 OOEtlKddGB2fnSJrJFygTq9lYZX3O wVjOpOmQRbaC6XmHASqlcqsvohoyM B9NWAgQPTyzP27Eg5q dKaiVt6hJJYwXTX6NSDixISvV5Ouo W2dIfSzOYFgEIRzZ1RnlAYiKChhP2 66AKtuPhU2ZRCrtwVh V2KrEMGgbXamDbI1h9R1Nk8SaPwpp TJdWO4iGtFaDVp0Y8ImIxj0RTMyiK paWD1pyDOxFKliJo3k nWodhYjfLX5pGMMibcxrh562SnDtr 7ixIHWvtJCkDGrlSOP9E83gk4X8VU JdQYBuFTR9kOK2cI9l bGlnbjogbGVmdDsgdmVydGljYWwtY FlaE035RZEphPmoSuBULmy8N8NvVy h2VGBcjTmnHY3orKBo NQmzSl6tdEcweSjhIL9iVRZnddfjt 944UtDli7lbXLDpiEJpRZdaTRV1X4 0sm2H4SYYjNYOsESO3 hMX2yI0tqKuuujytmUGmfSdsrwKol WtoIXctGTleX702FJYktFewUd2LEs m9Y5OpZvp8KAYnyFvp MC0jsTInXVbkWf4khCtaaMibYS2xL FElvnajh001MnStz3lgQLCnbJSvIZ idCTG5K98cn6Z9NQLp RTEjCLS4vVG3hA2sfPdtajeknHFhr VvhjoElrAoaOVpdSQclS273GZDolL snPlBheWVyOjwvdGQ+ SB91go68O5ZhZkrjYow6QZNdWJQ4e RD9gS8yJZWvISnrd3G7hGQ1S7Ixqr Sboy4sq9yiERNfHGvc Y29s (more content not included)... Normal [facility] NM STRESS/REST MULTIon 10-27 NM STRESS/REST MULTI Patient: FRANK LUOFeliciano Exam Date: 10/27/2021 : 1975 Gender:M Ordering : DR SHAINA NORMAN . Admission #: [id number] Family : Order #: [id number] CLICK HERE TO VIEW EXAM RADIOLOGY REPORT PROCEDURE: RADIONUCLIDE IMAGING STRESS/REST MULTI COMPARISON: None. INDICATIONS: Gastroesophageal reflux disease without esophagitis TECHNIQUE: Exam Description: Stress/Rest one day protocol gated SPECT Rest Imagin.9 mCi Tc-99m Cardiolite IV on 10/27/2021 Stress Imaging 32.8 mCi Tc-99m Cardiolite IV on 10/27/2021 Exercise Protocol: Arturo Heart Rate (bpm): Rest: 71 Max: 157 PMHR: 89 Blood Pressure: Rest: 118/74 Max: 164/80 Exercise Time: Minutes: 7 Seconds: 15 Stage Reached: Stage: 4 Mets 8.5 Symptoms: none Rest and peak stress ECG findings were normal and the exercise portion of the study was normal per attending physician Dr. Paris . For more details please see separate cardiac stress test report. FINDINGS: QUALITY OF STUDY: Good. PERFUSION DEFECT: None. LOCATION: N/A SIZE: N/A. SEVERITY: N/A. TYPE: N/A. WALL MOTION: Normal. LV SIZE: Normal. 112 mL. TID / TCD: None; 0.98 LVEF: Normal. Calculated EF 64%. SUMMARY: Myocardial perfusion imaging study is NORMAL. CONCLUSION: 1. No reversible ischemia 2. Normal exercise test Dictated by: Leo Aguero MD on 10/28/2021 at 09:50 Approved by: Leo Aguero MD on 10/28/2021 at 09:51 Normal [facility] Discharge Instructionson Discharge Instructions [id number]#[id number]:127 Normal [facility] ED Noteon 10-25-2021 ED Note Basic Information Time Seen: Carrie Pat PA-C 10/24/2021 12:08 Chief Complaint chest pain started last night around 6pm with L arm numbness/tingling since 0630 this morning. denies SOB. 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 denies N/V/D. History of Present Illness Patient is a 46-year-old male with a history of HTN, HLD, GERD who presents the ED today from home with his for complaint of chest pain since 1800 yesterday. He says he was sitting on the couch yesterday watching TV when it felt like something was squeezing and sitting on my chest . Patient tells me the sensation has been constant since then. He went to sleep with it and awoke with it. He did not come to the ED last night because he thought it was his GERD. His encouraged him to come to the ED today because chest pain is now associated with left arm numbness and tingling. He took 2 baby aspirin yesterday and 1 this morning. He has not tried any other medications. Patient also endorses nonproductive cough and generalized headache that began yesterday. He localizes the headache to right posterior occiput. He says that his chest pain is more bothersome than the headache. Patient denies vision changes, speech changes, dizziness, lightheadedness, syncope, shortness of breath, palpitations abdominal pain, nausea, vomiting, diarrhea. His last bowel movement was yesterday evening it was normal. Patient denies any trauma or injury. Patient denies any recent travel, tobacco use history of bleeding or clotting disorders. He says that his mother has had multiple CVAs that began in her 30s. He has a strong family history of both CAD, HTN and TN. Review of Systems ROS: Constitutional: Denies fever, chills, malaise, weight changes, night sweats HEENT: + Headache. Denies vision changes, diplopia, sore throat, nasal congestion, sinus pain/pressure Pulm: + Nonproductive cough. Denies SOB, hemoptysis, wheezes, tobacco use CVS: Denies CP, palpitations, edema GI/: Denies abd pain, N/V/D, constipation, black/bloody stools, dysuria, hematuria MSK/Skin/Lymph: Denies injury/trauma, rashes, wounds, swollen lymphnodes Neuro/Psych: + Left arm numbness and tingling. Denies weakness, lightheadedness, dizziness, syncope, SI/HI Physical Exam Vitals & Measurements T: 36.9 ?C(Oral) HR: 82(Peripheral) RR: 18 BP: 125/77 SpO2: 98% HT: 178.0 cm HT: 178 cm WT: 107.2 kg WT: 107.2 kg BMI: 33.83 Appearance: Overweight, nontoxic-appearing, alert and oriented x3. Speaking in complete sentences. Calm. Cooperative. Vital signs reviewed, WNL Skin: Warm, dry, intact. Normal for ethnicity. No ecchymosis, open wounds, or rashes. Head: Normocephalic, atraumatic NECK: Supple. Nml Inspection with good ROM, no meningismus or palpable adenopathy Eyes: EOMI, PERRLA. Vision grossly intact. No nystagmus Respiratory: LCTA b/l with normal bilateral excursion. No wheezes, rhonchi, rales. Cardiovascular: RRR, no murmurs. 2+ symmetrical radial and dorsalis pedis pulses. Normal cap refill. No LE edema. Chest wall: Normal chest wall appearance and motion. Abdomen/GI: Soft, nontender, nondistended. No guarding, rigidity, rebound tenderness. NABS x4. No masses or organomegaly. Neuro: NIHSS stroke scale score 0. Oriented x 3, Speech Clear, cranial nerves grossly intact. Normal sensation to light touch in all 4 extremities. Extremities: 5 out of 5 strength bilateral upper extremities. No deformity noted on exam. Patient spontaneously moves all 4 extremities. Psych: Anxious mood. Affect appropriate to context. Denies SI/HI. Medical Decision Making Patient is a 46-year-old male presents the ED for chest pain and left arm numbness associated with headaches. Patient symptoms could be concerning for CVA, ACS, musculoskeletal strain, PE, cervical radiculopathy. Patient CBC is completely normal, D-dimer is negative electrolytes with no significant abnormalities. Troponin is negative. Head CT shows no acute intracranial process. Chest x-ray negative for any acute cardiopulmonary process. I suspect the patient's numbness may be secondary to a cervical radiculopathy. He he has a large lipoma on his back I do not think that this is causing and I think more likely is probably chronic changes in his cervical spine that may have not been evaluated or diagnosed yet. Patient's chest pain could be his GERD. I do not think that it is ACS he has had 2 - troponins and a normal ECG. PEs negative. Chest x-ray is normal so pneumonia and effusion are very unlikely. Patient's lipase level is normal. I considered gallbladder disease however he has no RUQ tenderness nor back pain and he said he has had a decreased appetite he is only been drinking bland foods in the past few days. It could be Covid we did not test for that here in the ED today. Assessment/Plan 1. Chest pain, unspecified (R07.9: Chest pain, unspecified) 2. Left arm numbness (R20.0: Anesthesia of skin) Orders: Al hydroxide/Mg hydroxide/simethicone, 30 mL, Susp-Oral, Oral, Once, Stop d (more content not included)... Normal [facility] Auto Diffon 10-24-2021 Basophils/100 WBC (Bld) 0.3 % Normal 0.0-2.0 [facility] Comment on above: Order Comment: Order Added by Discern Expert. Performed By: #### 1 [id number], 9736443, 0230485, 59930931, 3538214, 8717873, 9844080, 07596933 ####[facility] [address] [place] [address] Basophils/Leukocyt es Auto (Bld) [Pure # fraction] 0.0 E9/L Normal 0.0-0.2 [facility] Comment on above: Order Comment: Order Added by Discern Expert. Performed By: #### 1 [id number], 1727719, 5822766, 06610547, 9105970, 9353008, 3624723, 07633615 ####[facility] [address] [place] [address] Eosinophils/100 WBC (Bld) 0.6 % Normal 0.0-8.0 [facility] Comment on above: Order Comment: Order Added by Discern Expert. Performed By: #### 1 0044965, 0393132, 3565946, 13218014, 7535734, 5651754, 4279946, 35493371 ####[facility] [address] [place] [address] Eosinophils/Leukoc ytes Auto (Bld) [Pure # fraction] 0.0 E9/L Normal 0.0-0.5 [facility] Comment on above: Order Comment: Order Added by Discern Expert. Performed By: #### 1 3349199, 0306803, 5503476, 05148966, 4689625, 4986302, 5668483, 51450798 ####[facility] [address] [place] [address] Lymphocytes/100 WBC (Bld) 24.8 % Normal 14.0-50.0 [facility] Comment on above: Order Comment: Order Added by Discern Expert. Performed By: #### 1 5504849, 4914934, 2356005, 39779257, 0603639, 1547842, 8078241, 21963441 ####[facility] [address] [place] [address] Lymphocytes/Leukoc ytes Auto (Bld) [Pure # fraction] 1.8 E9/L Normal 1.0-4.0 [facility] Comment on above: Order Comment: Order Added by Maricarmen Expert. Performed By: #### 1 2274372, 4107475, 9519570, 70803524, 7897707, 9950775, 3881630, 25327502 ####[address] [place] [address] Monocytes/100 WBC (Bld) 5.4 % Normal 4.0-14.0 [facility] Comment on above: Order Comment: Order Added by Discern Expert. Performed By: #### 1 6383767, 6679766, 1073566, 28823780, 7001416, 2476195, 6164163, 87390794 ####[address] [place] [address] Monocytes/Leukocyt es Auto (Bld) [Pure # fraction] 0.4 E9/L Normal 0.2-1.0 [facility] Comment on above: Order Comment: Order Added by Discern Expert. Performed By: #### 1 8890056, 5256748, 0934211, 44058365, 1988614, 6243545, 7614496, 44373486 ####[facility] [address] [place] [address] Neutrophils/100 WBC (Bld) 68.9 % Normal 36.0-75.0 [facility] Comment on above: Order Comment: Order Added by Maricarmen Expert. Performed By: #### 1 9798181, 9435424, 0416625, 02184193, 2697457, 4633078, 7599826, 14363783 ####[facility] [address] [place] [address] Neutrophils/Leukoc ytes Auto (Bld) [Pure # fraction] 5.0 E9/L Normal 2.0-7.5 [facility] Comment on above: Order Comment: Order Added by Discern Expert. Performed By: #### 1 9184546, 5079477, 3468167, 35449938, 3740662, 2920472, 3843863, 69095835 ####[facility] [address] [place] [address] BMPon 10-24-2021 Creatinine [Mass/Vol] 0.9 mg/dL Normal 0.5-1.3 [facility] Comment on above: Performed By: #### 1 0363285, 3815150, 3107497, 20161262, 0590165, 1587976, 7070346, 79009851 ####[facility] [address] [place] [address] Urea nitrogen [Mass/Vol] 13 mg/dL Normal 5-21 [facility] Comment on above: Performed By: #### 1 4497653, 1398676, 6287628, 17185800, 3991512, 2676407, 5404731, 00487769 ####[facility] [address] [place] [address] Urea nitrogen/Creatinin e [Mass ratio] 14 No Units Normal 10-20 [facility] Comment on above: Performed By: #### 1 6938074, 9507033, 8710929, 27195457, 3304593, 1372871, 9869496, 42343602 ####[facility] [address] [place] [address] Anion gap [Moles/Vol] 19 mmol/L High 6-16 [facility] Comment on above: Performed By: #### 1 9415161, 0875409, 1374974, 00004671, 1098464, 6593228, 9764651, 34022801 ####[facility] [address] [place] [address] Calcium [Mass/Vol] 9.4 mg/dL Normal 8.9-11.1 [facility] Comment on above: Performed By: #### 1 9263051, 4979738, 8054627, 21014175, 2130875, 7595341, 5246824, 89151969 ####[facility] [address] [place] [address] Chloride [Moles/Vol] 99 mmol/L Low 101-111 [facility] Comment on above: Performed By: #### 1 7076444, 7002014, 0295344, 52238980, 7391499, 8197030, 6055155, 74264655 ####[facility] [address] [place] [address] CO2 [Moles/Vol] 21 mmol/L Normal 21-31 [facility] Comment on above: Performed By: #### 1 9055532, 9898882, 6705489, 12303355, 8723395, 9134784, 9211331, 67043623 ####[facility] [address] [place] [address] Glucose [Mass/Vol] 101 mg/dL Normal 55-199 [facility] Comment on above: Result Comment: If t his glucose result represents a fasting glucose, interpretation should refer to the following reference range: 55-99 mg/dL Performed By: #### 1 9295270, 9371468, 9729311, 01121388, 5084413, 7591421, 2322058, 78663596 ####[facility] [address] [place] [address] Potassium [Moles/Vol] 3.9 mmol/L Normal 3.5-5.3 [facility] Comment on above: Performed By: #### 1 0061106, 2282735, 9354263, 95337379, 1233530, 7479482, 5749464, 80192913 ####[facility] [address] [place] [address] Sodium [Moles/Vol] 135 mmol/L Normal 135-145 [facility] Comment on above: Performed By: #### 1 8052683, 0611956, 0813099, 04344757, 1146775, 2127888, 9288509, 92103178 ####[address] [place] [address] CBC w/ Auto Diffon Erythrocyte distribution width (RBC) [Ratio] 14.1 % Normal 10.9-14.2 [facility] Comment on above: Performed By: #### 1 6474858, 3384214, 2564076, 96438343, 7044854, 3848471, 8378256, 32817451 ####[address] [place] [address] Hematocrit (Bld) [Volume fraction] 44.7 % Normal 37.7-49.0 [facility] Comment on above: Performed By: #### 1 3338200, 2059013, 2281387, 62435466, 7065086, 9828956, 3544160, 79141587 ####[address] [place] [address] Hemoglobin (Bld) [Mass/Vol] 15.4 g/dL Normal 13.5-17.5 [facility] Comment on above: Performed By: #### 1 1465631, 8171187, 5595801, 81531667, 7299529, 8165211, 0640401, 27158862 ####[address] [address] MCH (RBC) [Entitic mass] 29.1 pg Normal 27.0-34.0 [facility] Comment on above: Performed By: #### 1 4962110, 0085982, 1130945, 75545307, 1162954, 9898673, 1751475, 56871284 ####[address] [place] [address] MCHC (RBC) [Mass/Vol] 34.4 g/dL Normal 31.4-36.0 [facility] Comment on above: Performed By: #### 1 9592298, 8768671, 0139859, 57815186, 1812713, 5210537, 4078475, 13404386 ####[address] [place] [address] MCV (RBC) [Entitic vol] 84.7 fL Normal 80.0-100.0 [facility] Comment on above: Performed By: #### 1 0597973, 1229762, 7972067, 07130159, 3312600, 3307717, 2075288, 34821755 ####[address] [address] Platelet mean volume (Bld) [Entitic vol] 8.3 fL Normal 6.4-10.8 [facility] Comment on above: Performed By: #### 1 0457851, 5115986, 6734098, 82797555, 1976263, 5822361, 2387531, 59187068 ####[address] Platelets (Bld) [#/Vol] 229.0 E9/L Normal 150.0-500.0 [facility] Comment on above: Performed By: #### 1 1546057, 3035215, 3866553, 94623579, 4621006, 5667463, 3622833, 84650871 ####[address] [address] RBC (Bld) [#/Vol] 5.3 E12/L Normal 4.3-5.9 [facility] Comment on above: Performed By: #### 1 3258351, 6544182, 1325946, 16990508, 0327871, 1752158, 1004935, 17718573 ####[address] [address] WBC corrected for nucl RBC Auto (Bld) [#/Vol] 7.2 E9/L Normal 4.0-11.0 [facility] Comment on above: Performed By: #### 1 7462590, 3438694, 8450538, 12762949, 4329979, 5594286, 8113125, 67678851 ####[facility] [address] [place] [address] CT Head or Brain w/o Contras ton 10-24-2021 CT Head or Brain w/o Contrast Exam Date/Time: 10/24/2021 12:48 EST Reason for Exam: Headache, new or worsening, neuro deficit Report IMPRESSION: NEGATIVE CT SCAN OF THE BRAIN. CLINICAL HISTORY: Headache, new or worsening, neuro deficit. COMMENT: Unenhanced images were obtained. The ventricles and basal cisterns appear within normal limits. The cortical sulci appear normal. There is no mass effect nor midline shift. No abnormal attenuation within the brain is noted. There is no evidence of recent intracranial hemorrhage nor extra-axial hematoma. No mass lesion is evident. No skull fracture is noted. All CT scans at this facility use dose modulation, iterative reconstruction, and/or weight based dosing when appropriate to reduce radiation dose to as low as reasonably achievable. FINAL REPORT Dictated: 10/24/2021 12:54 pm Emil West M.D. Signed (Electronic Signature): 10/24/2021 12:54 pm Signed by: Emil West M.D. Transcribed by: YUE Technologist: KASSY Normal [facility] Consent for Treatmenton Consent for Treatment [id number] Normal [facility] D-Dimeron 10-24-2021 Fibrin D-dimer FEU (PPP) [Mass/Vol] <215 Low 215-500 [facility] Comment on above: Result Comment: This assay is intended for use as an aid in the diagnosis of DVT or PE. These conditions cannot be excluded with certainty solely on the basis of a D-dimer concentration being within the reference range This D-Dimer assay may be used in conjunction with a non-high clinical pretest probability assessment to exclude deep-vein thrombosis(DVT). For exclusion of venous thrombosis or pulmonary embolism the analyte D-Dimer should not be used as an aid in patients with: Therapeutic dose anticoagulant therapy for >24 hours Fibrinolytic therapy within previous 7 days Trauma or surgery within previous 4 weeks Disseminated malignacies Aortic aneurysm Sepsis, severe infections, pneumonia, severe skin infections Liver cirrhosis Performed By: #### 1 3955362, 6492192, 4894081, 79832358, 1277198, 4834367, 2031777, 33443047 ####[facility] [address] [place] [address] ED Clinical Summaryon 2021 ED Clinical Summary [address] [address] ED Clinical Summary Person Information Name: FRANK LUO [place] Age: 46 Years : 1975 Sex: Male Language: Greenlandic PCP: Shaina Norman MD Marital Status: Visit Id: Visit Reason: Headache; Cough; Arm pain-swelling; Chest pain; Since around 6pm last night...chest tightness, left arm numbness Speciality: Acuity: 2 Enc Type: Emergency Med Service: Emergency Arrival: 10/24/2021 11:53:24 Discharge: 10/24/2021 17:33:26 LOS: 000 05:40 Checkin: 10/24/2021 11:53:24 Checkout: 10/24/2021 17:33:26 Dispo Type: Home (Routine DC) EVENTS: Event Name Event Status Request Date/Time Start Date/Time Complete Date/Time Arrive Complete 10/24/2021 11:53:24 10/24/2021 11:53:24 10/24/2021 11:53:24 Document Home Meds Request 10/24/2021 11:53:24 Triage Complete 10/24/2021 11:53:24 10/24/2021 12:08:07 10/24/2021 12:08:07 EKG Complete 10/24/2021 11:56:10 10/24/2021 12:03:17 Pending Labs Complete 10/24/2021 11:57:12 10/24/2021 17:11:27 Lab Complete 10/24/2021 11:57:12 10/24/2021 12:57:25 Patient Care Request 10/24/2021 11:57:12 RT Request 10/24/2021 11:57:12 X-Ray Complete 10/24/2021 11:57:12 10/24/2021 12:15:50 10/24/2021 12:33:20 Bed Assign Complete 10/24/2021 12:08:16 10/24/2021 12:08:16 10/24/2021 12:08:16 Dr Exam Complete 10/24/2021 12:08:17 10/24/2021 12:08:55 10/24/2021 12:08:55 RN Exam Complete 10/24/2021 12:08:17 10/24/2021 13:58:14 10/24/2021 13:58:14 Registration Complete 10/24/2021 12:08:55 10/24/2021 12:10:50 10/24/2021 12:10:50 Dr Exam Complete 10/24/2021 12:09:44 10/24/2021 12:09:44 10/24/2021 12:09:44 Reg Complete Request 10/24/2021 12:10:50 Pending Labs Cancel 10/24/2021 12:21:53 10/24/2021 12:35:22 Lab Cancel 10/24/2021 12:21:53 10/24/2021 12:35:22 Meds Admin Complete 10/24/2021 12:21:53 10/24/2021 13:18:34 CT Complete 10/24/2021 12:21:53 10/24/2021 12:36:45 10/24/2021 12:48:56 Pending Labs Complete 10/24/2021 12:30:06 10/24/2021 12:30:06 10/24/2021 12:57:26 Lab Complete 10/24/2021 12:30:06 10/24/2021 12:30:06 10/24/2021 12:57:26 Wet Read Complete 10/24/2021 12:33:20 10/24/2021 13:22:49 10/24/2021 13:22:49 Pending Labs Complete 10/24/2021 12:35:56 10/24/2021 12:35:56 10/24/2021 12:57:25 Lab Complete 10/24/2021 12:35:56 10/24/2021 12:35:56 10/24/2021 12:57:25 Pending Labs Complete 10/24/2021 12:44:54 10/24/2021 12:44:54 10/24/2021 12:45:04 Lab Complete 10/24/2021 12:44:54 10/24/2021 12:44:54 10/24/2021 12:45:04 Pending Labs Complete 10/24/2021 13:56:12 10/24/2021 13:56:12 10/24/2021 13:56:13 Meds Admin Complete 10/24/2021 16:32:42 10/24/2021 17:25:06 Discharge Complete 10/24/2021 17:20:35 10/24/2021 17:43:57 10/24/2021 17:43:57 Transfer Complete 10/24/2021 17:43:57 10/24/2021 17:43:57 10/24/2021 17:43:57 ADDRESS: [address] [place] [id number] PHYS DOC NOTES: MEDICAL INFORMATION: Prescriptions Given: Medications to Continue with No Changes Other Medications amlodipine 10 Milligram By Mouth every day. dexlansoprazole (Dexilant) 60 Milligram By Mouth every day. olmesartan 20 Milligram By Mouth every day. ranitidine 150 Milligram By Mouth 2 times a day. simvastatin (simvastatin 20 mg Tab) 1 Tablets By Mouth once a day (at bedtime). ubiquinone (Co Q-10) 100 Milligram By Mouth every day. PATIENT EDUCATION INFORMATION: Instructions: Paresthesia, Pkcp-ki-Sfeo; Nonspecific Chest Pain, Adult, Jzus-er-Qbmp Follow up: With: Address: When: Stacy JACKMAN, Hernandez Castellon [address] [place] [address] In 3 days 10/27/2021 DIAGNOSIS: 1:Chest pain, unspecified; 2:Left arm numbness Normal [facility] ED Patient Education Noteon 10-24-2021 ED Patient Education Note Gastroenterology Nonspecific Chest Pain Chest pain can be caused by many different conditions. Some causes of chest pain can be life-threatening. These will require treatment right away. Serious causes of chest pain include: ? Heart attack. ? A tear in the body's main blood vessel. ? Redness and swelling (inflammation) around your heart. ? Blood clot in your lungs. Other causes of chest pain may not be so serious. These include: ? Heartburn. ? Anxiety or stress. ? Damage to bones or muscles in your chest. ? Lung infections. Chest pain can feel like: ? Pain or discomfort in your chest. ? Crushing, pressure, aching, or squeezing pain. ? Burning or tingling. ? Dull or sharp pain that is worse when you move, cough, or take a deep breath. ? Pain or discomfort that is also felt in your back, neck, jaw, shoulder, or arm, or pain that spreads to any of these areas. It is hard to know whether your pain is caused by something that is serious or something that is not so serious. So it is important to see your doctor right away if you have chest pain. Follow these instructions at home: Medicines ? Take phof-wja-uzkbcjq and prescription medicines only as told by your doctor. ? If you were prescribed an antibiotic medicine, take it as told by your doctor. Do not stop taking the antibiotic even if you start to feel better. Lifestyle ? Rest as told by your doctor. ? Do not use any products that contain nicotine or tobacco, such as cigarettes, e-cigarettes, and chewing tobacco. If you need help quitting, ask your doctor. ? Do not drink alcohol. ? Make lifestyle changes as told by your doctor. These may include: ? Getting regular exercise. Ask your doctor what activities are safe for you. ? Eating a heart-healthy diet. A diet and nutrition worker (dietitian) can help you to learn healthy eating options. ? Staying at a healthy weight. ? Treating diabetes or high blood pressure, if needed. ? Lowering your stress. Activities such as yoga and relaxation techniques can help. General instructions ? Pay attention to any changes in your symptoms. Tell your doctor about them or any new symptoms. ? Avoid any activities that cause chest pain. ? Keep all follow-up visits as told by your doctor. This is important. You may need more testing if your chest pain does not go away. Contact a doctor if: ? Your chest pain does not go away. ? You feel depressed. ? You have a fever. Get help right away if: ? Your chest pain is worse. ? You have a cough that gets worse, or you cough up blood. ? You have very bad (severe) pain in your belly (abdomen). ? You pass out (faint). ? You have either of these for no clear reason: ? Sudden chest discomfort. ? Sudden discomfort in your arms, back, neck, or jaw. ? You have shortness of breath at any time. ? You suddenly start to sweat, or your skin gets clammy. ? You feel sick to your stomach (nauseous). ? You throw up (vomit). ? You suddenly feel lightheaded or dizzy. ? You feel very weak or tired. ? Your heart starts to beat fast, or it feels like it is skipping beats. These symptoms may be an emergency. Do not wait to see if the symptoms will go away. Get medical help right away. Call your local emergency services (911 in the [place] Do not drive yourself to the hospital. Summary ? Chest pain can be caused by many different conditions. The cause may be serious and need treatment right away. If you have chest pain, see your doctor right away. ? Follow your doctor's instructions for taking medicines and making lifestyle changes. ? Keep all follow-up visits as told by your doctor. This includes visits for any further testing if your chest pain does not go away. ? Be sure to know the signs that show that your condition has become worse. Get help right away if you have these symptoms. This information is not intended to replace advice given to you by your health care provider. Make sure you discuss any questions you have with your health care provider. Document Released: 03/26/2009 Document Revised: 04/10/2019 Document Reviewed: 04/10/2019 [employer] Patient Education ? 2020 [employer] Neurology Paresthesia Paresthesia is a burning or prickling feeling. This feeling can happen in any part of the body. It often happens in the hands, arms, legs, or feet. Usually, it is not painful. In most cases, the feeling goes away in a short time and is not a sign of a serious problem. If you have paresthesia that lasts a long time, you may need to be seen by your doctor. Follow these instructions at home: Alcohol use ? Do not drink alcohol if: ? Your doctor tells you not to drink. ? You are , may be , or are planning to become . ? If you drink alcohol: ? Limit how much you use to: ? 0?1 drink a day for women. ? 0?2 drinks a day for men. ? Be aware of how much alcohol is in y (more content not included)... Normal [facility] ED Patient Summaryon 022 ED Patient Summary (Inserted Image. Amisha ble to display) [address] [address] Patient Discharge Instructions Person Information Name: FRANK LUO Age: 46 Years Arrival Date: 10/24/2021 11:53:24 Discharge Diagnosis: 1:Chest pain, unspecified; 2:Left arm numbness Primary Care Physician: Shaina Norman MD Provider Information Primary Provider: Jac Doty DO Advanced Chief Order Dispatcher:Carrie Pat PA-C The exam and treatment you received in the Emergency Department were for an urgent problem and are not intended as complete care. It is important that you follow up with a doctor, nurse practitioner, or physician?s physical therapy assistant for ongoing care. If your symptoms become worse or you do not improve as expected and you are unable to reach your usual health care provider, you should return to the Emergency Department. We are available 24 hours a day. FRANK LUO has been given the following list of patient education materials, prescriptions and follow-up instructions: Follow-up Instructions: With: Address: When: Stacy JACKMAN, Hernandez Castellon [address] [place] [address] In 3 days 10/27/2021 In the event that this physician does not participate in your insurance network, please consult with your insurance company to find a nearby participating provider. Patient Education Materials: Paresthesia, Nxxh-vd-Vwwl; Nonspecific Chest Pain, Adult, Gqii-lb-Nvgb A MESSAGE TO ALL PATIENTS REGARDING OPIOIDS PRESCRIPTION OPIOIDS: WHAT YOU NEED TO KNOW Prescription opioids can be used to help relieve znoysuef-yn-fkwcwa pain and are often prescribed following a surgery or injury, or for certain health conditions. These medications can be an important part of the treatment but also come with serious risks. It is important to work with your healthcare provider to make sure you are getting the safest, most effective care. WHAT ARE THE RISKS AND SIDE EFFECTS OF OPIOID USE? Prescription opioids carry serious risks of addiction and overdose, especially with prolonged use. An opioid overdose, often marked by slowed breathing, can cause sudden . The use of prescription opioids can have a number of side effects as well, even when taken as directed: ? Tolerance?meaning you might need to take more of the medication for the same pain relief ? Physical dependence?meaning you have symptoms of withdrawal when a medication is stopped ? Increased sensitivity to pain ? Constipation ? Nausea, vomiting, and dry mouth ? Sleepiness and dizziness ? Confusion ? Depression ? Low levels of testosterone that can result in lower sex drive, energy, and strength ? Itching and sweating RISKS ARE GREATER WITH: ? History of drug misuse, substance use disorder, or overdose ? Mental health conditions (such as depression or anxiety) ? Sleep apnea ? Older age (65 years and older) ? Avoid alcohol while taking prescription opioids. Also, unless specifically advised by your health care provider, medications to avoid include: ? Benzodiazepines (such as Xanax or Valium) ? Muscle relaxants (such as Soma or Flexeril) ? Hypnotics (such as Ambien or Lunesta) ? Other prescription opioids KNOW YOUR OPTIONS Talk to your health care provider about ways to manage your pain that don?t involve prescription opioids. Some of these options may actually work better and have fewer risks and side effects. Options may include: ? Pain relievers such as acetaminophen, ibuprofen, and naproxen ? Some medication that are also used for depression or seizures ? Physical therapy and exercise ? Cognitive behavioral therapy, a psychological, goal-directed approach, in which patients learn how to modify physical, behavioral, and emotional triggers of pain and stress. IF YOU ARE PRESCRIBED OPIOIDS FOR PAIN: ? Never take opioids in greater amounts or more often than prescribed. ? Follow up with your primary health care provider. o Work together to create a plan on how to manage your pain. o Talk about ways to help manage your pain that don?t involve prescription opioids. o Talk about any and all concerns and side effects. ? Help prevent misuse and abuse o Never sell or share prescription opioids. o Never use another person?s prescription opioids. ? Store prescription opioids in a secure place and out of reach of others (this may include visitors, children, friends, and family). ? Safely dispose of unused prescription opioids: Find your community drug take-back program or your pharmacy mail-back program, or flush them down the toilet, following guidance from the Food and Drug Administration (www.fda.gov/Drugs/ResourcesF orYou). ? Visit www.cdc.gov/drugoverdose to learn about the risks of opioids abuse and overdose. ? If you believe you may be struggling with addiction, tell your health hourly caregiver and ask for guidance or call [facility]? (more content not included)... Normal [facility] Lipase Levelon 10-24-2021 Lipase [Catalytic activity/Vol] 28 U/L Normal 13-58 [facility] Comment on above: Performed By: #### 1 [id number], 1599972, 5445946, 38246490, 4301599, 3631956, 2908036, 84569556 ####[facility] [address] [place] [address] PT & PTTon 10-24-2021 aPTT Coag (PPP) [Time] 32.9 second(s) Normal 25.1-36.5 [facility] Comment on above: Result Comment: Hepa rin therapeutic range (represented by Anti-Factor Xa activity of 0.2 - 0.4 U/mL) corresponds to PTT of 56.6 - 109.0 sec. Performed By: #### 1 1508294, 4839953, 3963959, 90768813, 0795349, 8102784, 4497527, 35113218 ####[facility] [address] [employer] [facility] [place] [address] INR Coag (PPP) [Relative time] 1.1 {INR} Invalid Interpretation Code [facility] Comment on above: Result Comment: INR results are specifically intended to assess patients stabilized on long-term Anticoagulation therapy suggested INR?s ?Less Intensive Anticoagulation? 2.0 ? 3.0 Conventional Range 3.0 ? 4.5 Performed By: #### 1 [id number], [id number], [id number], [id number], [id number], [id number], [id number], [id number] ####[facility] [address] [place] [address] PT Coag (PPP) [Time] 12.8 second(s) Normal 10.2-12.9 [facility] Comment on above: Performed By: #### 1 [id number], [id number], [id number], [id number], [id number], [id number], [id number], [id number] ####[facility] [address] [place] [address] Troponin 0 Hr.on 10-24-2021 Troponin I.cardiac [Mass/Vol] ng/mL Low 15.90-38.40 [facility] Comment on above: Result Comment: The 95% CI (Confidence Interval) PPV (Positive Predictive Value) for myocardial infarction in females is 38 pg/mL, in males 51 pg/mL. The results should be used in conjunction with clinical conditions of myocardial infarction. (Access High Sensitivity Troponin I Instructions For Use, Impinj, May 2018) Performed By: #### 1 [id number], [id number], [id number], [id number], [id number], 9442545, [id number], [id number] ####[facility] [address] [place] [address] Troponin 3 Hr.on 10-24-2021 Troponin I.cardiac [Mass/Vol] ng/mL Low 15.90-38.40 [facility] Comment on above: Result Comment: The 95% CI (Confidence Interval) PPV (Positive Predictive Value) for myocardial infarction in females is 38 pg/mL, in males 51 pg/mL. The results should be used in conjunction with clinical conditions of myocardial infarction. (Access High Sensitivity Troponin I Instructions For Use, Impinj, May 2018) Performed By: #### 1 [id number] ####[address] [address] XR Chest Single Viewon 10-24 XR Chest Single View Exam Date/Time: 10/24/2021 12:33 EST Reason for Exam: Chest pain Report IMPRESSION: No acute radiographic abnormality. EXAMINATION: XR Chest Single View Clinical History: Chest pain. Comparison: 11/19/2018 RESULT: No consolidation. No pleural effusion. No pneumothorax. Normal pulmonary vascular pattern. Normal cardiomediastinal silhouette. No acute osseous findings. FINAL REPORT Dictated: 10/24/2021 12:50 pm Itz Laguna MD. Signed (Electronic Signature): 10/24/2021 12:50 pm Signed by: Itz Laguna MD Transcribed by: YUE Technologist: RRGladys Normal [facility] eGFRon 10-24-2021 GFR/1.73 sq M.predicted among blacks MDRD (S/P/Bld) [Vol rate/Area] mL/min/{1.73_m2} Normal >=59 [facility] Comment on above: Order Comment: Order added by Discern Expert. Result Comment: eGFR is race adjusted. AA=. Performed By: #### 1 [id number], [id number], [id number], [id number], 2261564, [id number], [id number], [id number] ####[facility] [address] [place] [address] GFR/1.73 sq M.predicted among non-blacks MDRD (S/P/Bld) [Vol rate/Area] mL/min/{1.73_m2} Normal >=59 [facility] Comment on above: Order Comment: Order added by Discern Expert. Result Comment: Counter Help nadine kidney disease could be indicated at eGFR's of less than 60 mL/min/1.73m2. Kidney failure is indicated at less than 15 mL/min/1.73m2. Performed By: #### 1 [id number], 8125350, 7482993, [id number], 7112099, 3971028, [id number], [id number] ####[facility] [address] [place] [address] [facility] [place] [facility] April 07, 2021 Shaina Norman, [address] [place] [address] [place] [address] Re: FRANK LUO Date of : 1975 Thank you for your referral of Frank Luo who was seen on consultation for injury to right alvarado. I have enclosed my consultation notes for your review. I will be happy to follow Frank should his symptoms persist. Sincerely, Vijaya Molina MD General Surgery Normal [facility] Ambulatory Clinical Summaryo n 03-25-2021 Ambulatory Clinical Summary {[id number] Normal [facility] Patient Educationon 03-25-20 21 Patient Education Physical Medicine an d Rehabilitation Exercising to Lose Weight Exercise is structured, repetitive physical activity to improve fitness and health. Getting regular exercise is important for everyone. It is especially important if you are overweight. Being overweight increases your risk of heart disease, stroke, diabetes, high blood pressure, and several types of cancer. Reducing your calorie intake and exercising can help you lose weight. Exercise is usually categorized as moderate or vigorous intensity. To lose weight, most people need to do a certain amount of moderate-intensity or vigorous-intensity exercise each week. Moderate-intensity exercise Moderate-intensity exercise is any activity that gets you moving enough to burn at least three times more energy (calories) than if you were sitting. Examples of moderate exercise include: ? Walking a mile in 15 minutes. ? Doing light yard work. ? Biking at an easy pace. Most people should get at least 150 minutes (2 hours and 30 minutes) a week of moderate-intensity exercise to maintain their body weight. Vigorous-intensity exercise Vigorous-intensity exercise is any activity that gets you moving enough to burn at least six times more calories than if you were sitting. When you exercise at this intensity, you should be working hard enough that you are not able to carry on a conversation. Examples of vigorous exercise include: ? Running. ? Playing a team sport, such as football, basketball, and soccer. ? Jumping rope. Most people should get at least 75 minutes (1 hour and 15 minutes) a week of vigorous-intensity exercise to maintain their body weight. How can exercise affect me? When you exercise enough to burn more calories than you eat, you lose weight. Exercise also reduces body fat and builds muscle. The more muscle you have, the more calories you burn. Exercise also: ? Improves mood. ? Reduces stress and tension. ? Improves your overall fitness, flexibility, and endurance. ? Increases bone strength. The amount of exercise you need to lose weight depends on: ? Your age. ? The type of exercise. ? Any health conditions you have. ? Your overall physical ability. Talk to your health care provider about how much exercise you need and what types of activities are safe for you. What actions can I take to lose weight? Nutrition ? Make changes to your diet as told by your health care provider or diet and nutrition worker (dietitian). This may include: ? Eating fewer calories. ? Eating more protein. ? Eating less unhealthy fats. ? Eating a diet that includes fresh fruits and vegetables, whole grains, low-fat dairy products, and lean protein. ? Avoiding foods with added fat, salt, and sugar. ? Drink plenty of water while you exercise to prevent dehydration or heat stroke. Activity ? Choose an activity that you enjoy and set realistic goals. Your health care provider can help you make an exercise plan that works for you. ? Exercise at a moderate or vigorous intensity most days of the week. ? The intensity of exercise may vary from person to person. You can tell how intense a workout is for you by paying attention to your breathing and heartbeat. Most people will notice their breathing and heartbeat get faster with more intense exercise. ? Do resistance training twice each week, such as: ? Push-ups. ? Sit-ups. ? Lifting weights. ? Using resistance bands. ? Getting short amounts of exercise can be just as helpful as long structured periods of exercise. If you have trouble finding time to exercise, try to include exercise in your daily routine. ? Get up, stretch, and walk around every 30 minutes throughout the day. ? Go for a walk during your lunch break. ? Park your car farther away from your destination. ? If you take public transportation, get off one stop early and walk the rest of the way. ? Make phone calls while standing up and walking around. ? Take the stairs instead of elevators or escalators. ? Wear comfortable clothes and shoes with good support. ? Do not exercise so much that you hurt yourself, feel dizzy, or get very short of breath. Where to find more information ? U.S. Department of Health and Human Services: www.hhs.gov ? Centers for Disease Control and Prevention (CDC): www.cdc.gov Contact a health care provider: ? Before starting a new exercise program. ? If you have questions or concerns about your weight. ? If you have a medical problem that keeps you from exercising. Get help right away if you have any of the following while exercising: ? Injury. ? Dizziness. ? Difficulty breathing or shortness of breath that does not go away when you stop exercising. ? Chest pain. ? Rapid heartbeat. Summary ? Being overweight increases your risk of heart disease, stroke, diabetes, high blood pressure, and several types of cancer. ? Losing weight augustin (more content not included)... Normal [facility] Physician Referralon 021 Physician Referral [id number] Normal [facility] XR foot RT min 3V*on 021 XR foot RT min 3V* [facility] [place] [address] XRay Report Signed Patient: Frank Luo MR#: [id number] : 1975 Acct:[id number] Age/Sex: 45 / M ADM Date: 03/17/21 [facility] Type[facility] Attending Dr: Shelly Bellamy APRN, OPTICAL LABORATORY TECHNICIAN-C Ordering Provider: Shelly Bellamy APRN Date of Service: 03/17/21 XR/XR foot RT min 3V*: RIGHT FOOT/ANKLE INJURY ([id number]) XR/XR ankle RT min 3V*: RIGHT FOOT/ANKLE INJURY Copies to: Shelly Bellamy APRN Right ankle and right foot 03/17/2021. CLINICAL DATA: Right ankle and right foot pain after injury. RIGHT ANKLE FINDINGS: 3 views of the right ankle were obtained. No acute fracture or dislocation is identified. No other bony abnormality is seen. Anterolateral soft tissue swelling is noted. RIGHT FOOT FINDINGS: 3 views of the right foot were obtained. No acute fracture or dislocation is identified. No other bony abnormality is seen. Dorsal soft tissue swelling is noted. XR/XR ankle RT min 3V* IMPRESSION: Soft tissue swelling. No acute bony abnormality. Impression dictated by: Brandon Bolaños Jr., M.D.03/17/2021 6:58 PM Dictation Location: [place] [address] Transcribed By: [facility] 03/17/211857 Dictated By: Brandon Bolaños Jr, MD 03/17/211853 Signed By: 03/17/211857 [facility] Encounters Encounter Date Encounter Type Care Provider Facility Start: 10-10-2022 End: 10-11-[address] SHAINA NORMAN Facility:[facility] Start: 10-03-2022 End: 10-04-[address] SHAINA NORMAN Facility:[facility] Start: 04-06-2022 Encounter for genera l adult medical examination without abnormal findings DR SHAINA NORMAN [facility] Start: 04-04-2022 End: 04-05-[address] SHAINA NORMAN Facility:[facility] Start: 04-04-2022 End: 04-05-2022 Encounter for general adult medical examination without abnormal findings DR SHAINA NORMAN Facility:[facility] Start: 12-14-2021 End: 12-14-[address] VIJAYA MOLINA Facility:[facility] Start: 11-21-2021 End: 11-22-[address] SHAINA NORMAN Facility:[facility] Start: 11-19-[address] SHAINA NORMAN Facility :[facility] Start: 10-27-2021 End: 10-28-[address] SHAINA NORMAN Facility:[facility] Payers Date Payer Category Payer Unknown [id number] 2..84 [id number] 1975 Unknown [id number] 2.16.84 [id number] 1975 Unknown [id number] 2.16.84 [id number] 1975 Unknown [id number] 2.16.84 [id number] 1975 Unknown [id number] .16.84 [id number] 1975 Unknown [id number] 2.16.84 [id number] 1975 Unknown [id number] 2.16.84 [id number] 1957 Self-pay [id number] 1957 Unknown [id number] Clinical Note 12-14-2021 Note Date & Type Note Facility 12-14-2021 Note OPERATIVE NOTE PREOPERATIVE DIAGNOSIS: Enlarging subcutaneous nodules, left flank and upper mid back, consistent with lipomas. POSTOPERATIVE DIAGNOSIS: Enlarging subcutaneous nodules, left flank and upper mid back, consistent with lipomas. PROCEDURE: Excisional biopsy of lipomas left flank and upper mid back. SURGEON: Vijaya Molina M.D. ANESTHESIA: Local with 0.5% Marcaine plain. ESTIMATED BLOOD LOSS: Less than 20 mL. INDICATIONS AND CONSENT: Patient is a 46-year-old male with enlarging subcutaneous nodules in the upper mid back as well as left flank, consistent with lipomas. Indications, risks, benefits, alternatives of proceeding with excisional biopsy under local anesthesia were explained extensively to the patient, including the risks of bleeding, infection, scarring, pain, recurrence and need for further surgery. All of his questions were answered. Informed consent was obtained. PROCEDURE: Patient brought to the operating room, placed in the right lateral decubitus position. The areas were prepped and draped in the usual sterile fashion. There were anesthetized with 0.5% Marcaine plain. Incision was made over the upper mid back lesion, approximately 3 cm, and carried down through subcutaneous tissue using sharp dissection as well as needle tip electrocautery. It was noted to be very deep, lobulated, scarred lipoma that was relatively flat. This was excised in piecemeal fashion. Hemostasis achieved with needle tip electrocautery. The deep subcutaneous tissue was re-approximated using interrupted 3-0 Vicryl sutures. The skin was then closed with 4-0 nylon simple and mattress sutures. There was good hemostasis. The left flank lesion was excised in identical fashion. It was approximately 2 cm in greatest diameter. It was closed with interrupted 4-0 nylon sutures, as well as a deeper layer of 3-0 Vicryl sutures in the subcutaneous tissue. There was good hemostasis. Sterile pressure dressings were applied. Sponge and needle counts were correct x2 per nursing personnel. Patient tolerated procedure well, was discharged to home in good condition, is to follow up in 10-14 days for suture removal and wound check. CC: Dr. Shaina Norman : [facility] Signed and Approved by: DR VIJAYA MOLINA . 12/20/2021 12:03:00 [facility] Clinical Note 11-29-2021 Note Date & Type Note Facility 11-29-2021 Note Chief Complaint consultation for lipoma HPI Staff 46 year old male presents on consultation from Dr. Norman for lipoma mid upper back. Present 2-3 years. Gradual increase in size. Denies pain but does believe this is causing bilateral arm numbness. History of Present Illness 46 yo male referred for enlarging subcutaneous nodule upper midback; present for approximately 3 years, sore at times now that it has enlarged; no injury, no skin changes; also smaller nodule left flank, sore if pressure to area, no skin changes; on baby asa, no NSAIDs. Review of Systems PHQ Score Initial Depression Screen Score: 0 ROS - Provider Constitutional: no fever, no sweats, no weight loss. Eyes: no glasses, no blurred vision, no visual loss. ENMT: no dentures, no hoarseness, no swallowing difficulties, no hearing loss, no ear infection(s), no nose bleeds. Cardiovascular: normal blood pressure, no chest pain, regular heartbeat, no heart murmur. Respiratory: no shortness of breath, no cough, no asthma, no wheezing. Gastrointestinal: no nausea, no vomiting, no diarrhea, no constipation, no blood in stool, no change in bowel habits, no abdominal pain, no hepatitis. Genitourinary: no kidney stones, no urine infection, no dysuria. Musculoskeletal: no pain, no weakness. Skin: no changing moles, no rash, moderate skin lumps. Neurologic: no seizures, no epilepsy, no headache. Psychiatric: no emotional or psychiatric problem. Heme/Lymph: no bleeding problems, no anemia, no blood clots, no transfusions. Allergy/Immunologic: no swollen lymph nodes/glands, no IV drug abuse. Other: Additional ROS info: Except as noted in the above Review of Systems and in the History of Present Illness, all other systems have been reviewed and are negative or noncontributory. Physical Exam Vitals & Measurements T: 36.3 ?C(Temporal Artery) HR: 68(Peripheral) RR: 16 BP: 124/70 HT: 180 cm HT: 180.0 cm WT: 111.4 kg WT: 111.4 kg BMI: 34.38 HEENT: normal conjunctiva, sclera clear, no scleral icterus, EOM intact, PERRLA, oral mucosa moist without lesions. Neck: trachea midline, no mass, symmetric, no thyromegaly or nodules, no adenopathy Respiratory: lungs CTA, respirations non labored. Cardiovascular: regular rate and rhythm, no murmur, no pedal edema or varicosities. Lymphatic: no cervical adenopathy, Musculoskeletal: normal gait, digits and nails without infection, nodes, cyanosis, clubbing. Skin: no rashes, no lesions, no ulcers, 3 cm nodule upper midback, soft, subcutaneous; nontender; left flank with 1 cm subcutaneous nodule, tender, mobile, no skin changes Psychiatric/Neuro: oriented to time, place, person, judgement normal, affect appropriate for age, insight intact, no focal deficits. Tests: review of old records completed, Discussed surgical options, risks, and possible complications with patient. Assessment/Plan 1. Lipoma of back, (D17.1: Benign lipomatous neoplasm of skin and subcutaneous tissue of trunk) plan excisional biopsy under local anesthesia at [facility] for definitive diagnosis and treatment; informed consent obtained. Lipoma of flank see # 1 Follow-up No qualifying data available Problem List/Past Medical History Ongoing BMI 34.0-34.9,adult Carbuncle Chest pain Contusion of multiple sites of right lower extremity Hemorrhoids Hx of gastroesophageal reflux (GERD) Hyperlipidemia Hypertriglyceridemia Lipoma of back Lipoma of flank Historical acid reflux High Cholesterol HTN Procedure/Surgical History EGD - Esophagogastroduodenoscopy (11/26/2018), Extraction of wisdom tooth, Tonsillectomy. Medications amlodipine, 10 mg, Oral, Daily aspirin 81 mg Oral EC Tab, 81 mg= 1 tab(s), Oral, Daily Co Q-10, 100 mg, Oral, Daily Dexilant, 60 mg, Oral, Daily olmesartan, 20 mg, Oral, Daily ranitidine, 150 mg, Oral, BID simvastatin 20 mg Tab, 20 mg= 1 tab(s), Oral, Once a day (at bedtime) Allergies No Known Allergies Social History Alcohol - Denies Alcohol Use, 11/29/2021 Substance Abuse - Denies Substance Abuse, 11/29/2021 Tobacco Never (less than 100 in lifetime) Tobacco Use:. Never Smokeless Tobacco Use:., 11/29/2021 Family History Diabetes mellitus type 2: Father. Immunizations Vaccine Date Status influenza virus vaccine, inactivated 08/2021 Recorded [facility] Comment on above: Result Comment: Elec tronically Signed By: CATALINA JACKMAN, Vijaya Brink\Date and Time Signed: 11/29/21 17:11 EST Clinical Note 03-25-2021 Note Date & Type Note Facility 03-25-2021 Note Chief Complaint Consultation of injury on Right Alvarado HPI Staff 45 year old male referred by Dr. Norman on consultation for Right Leg Injury. Patient dropped concrete on the right leg on 03/07. Xray completed on 03/17/2021. C/o swelling and soreness under the ankles. Experienced bleeding and drainage during the first week following incident, since has scabbed over. Denies symptoms of nausea, vomiting, fever, or chills. Not taking anything for pain. Has been icing and elevating leg on occasion. Completed 7 day course of Cephalexin 500 mg BID yesterday. History of Present Illness 45 yo male s/p injury to right lower extremity, dropped concrete on leg with small lacerations and contusions; still with some soreness and mild ankle swelling; seen in Urgent care 8 days ago; x-rays negative for fracture; patient was told there could be concrete fragments in wound; however radiologist report does not mention any radio opaque foreign bodies; not taking any medications for pain, no drainage or open areas. Review of Systems PHQ Score Initial Depression Screen Score: 0 ROS - Provider Constitutional: no fever, no sweats, no weight loss. Eyes: no glasses, no blurred vision, no visual loss. ENMT: no dentures, no hoarseness, no swallowing difficulties, no hearing loss, no ear infection(s), no nose bleeds. Cardiovascular: normal blood pressure, no chest pain, regular heartbeat, no heart murmur. Respiratory: no shortness of breath, no cough, no asthma, no wheezing. Gastrointestinal: no nausea, no vomiting, no diarrhea, no constipation, no blood in stool, no change in bowel habits, no abdominal pain, no hepatitis. Genitourinary: no kidney stones, no urine infection, no dysuria. Musculoskeletal: mild pain, no weakness. Skin: no changing moles, no rash, no skin lumps. Neurologic: no seizures, no epilepsy, no headache. Psychiatric: no emotional or psychiatric problem. Heme/Lymph: no bleeding problems, no anemia, no blood clots, no transfusions. Allergy/Immunologic: no swollen lymph nodes/glands, no IV drug abuse. Other: Additional ROS info: Except as noted in the above Review of Systems and in the History of Present Illness, all other systems have been reviewed and are negative or noncontributory. Physical Exam Vitals & Measurements T: 36.7 ?C (Tympanic) BP: 122/84 HT: 180.0 cm HT: 180 cm WT: 115.7 kg WT: 115.666 kg BMI: 35.7 HEENT: normal conjunctiva, sclera clear, no scleral icterus, EOM intact, PERRLA, oral mucosa moist without lesions. Neck: trachea midline, no mass, symmetric, no thyromegaly or nodules, no adenopathy. Musculoskeletal: normal gait, digits and nails without infection, nodes, cyanosis, clubbing. Skin: no rashes, no lesions, no ulcers, no subcutaneous nodules, induration. right lower anterior extremity with superficial areas of scab, no fluctuance or hematoma, no papable nodules; trace edema. Psychiatric/Neuro: oriented to time, place, person, judgement normal, affect appropriate for age, insight intact, no focal deficits. Tests: x-rays reviewed, review of old records completed, Assessment/Plan 1. Contusion of multiple sites of right lower extremity (S80.11XA: Contusion of right lower leg, initial encounter) no evidence of retained foreign body, healing as expected; elevate RLE when sitting; call with problems/questions. 2. BMI 35.0-35.9,adult (Z68.35: Body mass index [BMI] 35.0-35.9, adult) recommend diet and exercise. Follow-up No qualifying data available Patient Education Exercising to Lose Weight Problem List/Past Medical History Ongoing BMI 35.0-35.9,adult Carbuncle Chest pain Contusion of multiple sites of right lower extremity Hemorrhoids Hx of gastroesophageal reflux (GERD) Hyperlipidemia Hypertriglyceridemia Historical acid reflux High Cholesterol HTN Procedure/Surgical History Operation on tonsils. Medications amlodipine, 10 mg, Oral, Daily Co Q-10, 100 mg, Oral, Daily Dexilant, 60 mg, Oral, Daily olmesartan, 20 mg, Oral, Daily ranitidine, 150 mg, Oral, BID simvastatin 20 mg Tab, 20 mg= 1 tab(s), Oral, Once a day (at bedtime) Allergies No Known Allergies Social History Alcohol Tobacco Never (less than 100 in lifetime) Tobacco Use:. Never Smokeless Tobacco Use:., 03/25/2021 [facility] Comment on above: Result Comment: Elec tronically Signed By: CATALINA JACKMAN, Vijaya Brink\Date and Time Signed: 03/25/21 11:54 EDT Summary Purpose Family History No Family History Records FoundNo Family History Records FoundNo Family History Records Found Advance Directives No Advanced Directives Records FoundNo Advanced Directives Records FoundNo Advanced Directives Records Found Additional Source Comments (unrecognized sect ion and content) No Status Records FoundNo Status Records FoundNo Status Records Found INFORMATION SOURCE (unrecogn ized section and content) DATE CREATED AUTHOR 03/26/2021 [facility] DATE CREATED AUTHOR AUTHOR'S ORGANIZ ATION 02/19/2022 [facility] DATE CREATED AUTHOR AUTHOR'S ORGANIZ ATION [facility] FOR [facility]ORDS PERTAINING TO PATIENTS WHO ARE OR HAVE BEEN ENROLLED IN A CHEMICAL DEPENDENCY/SUBSTANCEABUSE PROGRAM, SOME INFORMATION MAY BE OMITTED. This clinical summary was aggregated from multiple sources. Caution should be exercised in using it in the provision of clinical care. This summary normalizes information from multiple sources, and as a consequence, information in this document may materially change the coding, format and clinical context of patient data. In addition, data may be omitted in some cases. CLINICAL DECISIONS SHOULD BE BASED ON THE PRIMARY CLINICAL RECORDS. [employer] [facility] provides no warranty or guarantee of the accuracy or completeness of information in this document.
[2023-11-18 08:09] LABS: Testosterone 192 ng/dL (264-916)
== END 2023-11-16 15:56 | disposition home or self-care (01) ==
LOC: LAB 15:58
PROVIDERS: PCP Family Medicine; Visit Provider Family Medicine
DX: E29.1 Testicular hypofunction (principal)
CPT/HCPCS: 36415; 84403

== ENCOUNTER 2024-01-22 10:07 | Outpatient (OUT) | payer OTHER, SELFPAY ==
--- OUTSIDE RECORDS SUMMARY | 2024-01-22 10:13 | XMS_ITS | CCD ---
Author Organization [facility] Care Team Providers Care Chief Minister Name Role Phone LASHAY, DR MERRITT Admitting [...] 11-21-2021 Episodic Other aftercare (1 source) Other snf (current) drug therapy; Translations: [OTH APPLICATION TRAINER CURRENT DRUG THERAPY] Onset: 04-06-2022 Episodic Other [...] 04-05-2022 % Free PSA 44.0 % Normal [facility] Comment on above: Result Comment: The table [...] of men. Performed By: #### P SAFREE ####[facility] [address] [place], [place] [address]Dm. Eryn Parsons Prostate specific Ag [Mass/Vol] 0.5 ng/mL Normal 0.0-4.0 [facility] Comment on above: Result Comment: Bárbara MCGINNIS methodology. . According to the [employer] [employer], Serum PSA should decrease and [...] malignant disease. Performed By: #### P SAFREE ####[facility] [address] [place] [address]Dr. Eryn Parsons PSA, Free 0.22 ng/mL Normal N/A [facility] Comment on above: Result Comment: Bárbara snider ECLIA methodology. Performed By: #### P SAFREE ####[facility] [address] [place] [address]DrFeliciano Parsons BILIRUBIN CONJUGATED (DIRECT )on 04-04-2022 BILI, CONJUGATED 0.1 mg/dL Normal 0.0-0.2 [facility] Comment on above: Performed By: #### D BEBE, LIPID, FT3, TSH, T4, CMP #### [facility] [address] [place], [place] [address] Dr. Eryn Parsons CBC AUTO DIFFon 04-04-2022 BASO # 0.0 103/ul Normal 0.0-0.1 [facility] Comment on above: Performed By: #### C BC ####[facility] [address] [place] [address]Dr. Eryn Parsons Basophils/100 WBC (Bld) 0.4 % Normal 0.2-2.0 [facility] Comment on above: Performed By: #### C BC ####[facility] [address] [place] [address]Dr. Eryn Parsons EO # 0.1 103/ul Normal 0.0-0.7 [facility] Comment on above: Performed By: #### C BC ####[facility] [address] [place] [id number]. Eryn Parsons Eosinophils/100 WBC (Bld) 1.4 % Normal 0.9-7.0 [facility] Comment on above: Performed By: #### C BC ####[facility] [address] [place] [address]Dr. Eryn Parsons Erythrocyte distribution width (RBC) [Ratio] 13.2 % Normal 11.0-15.0 [facility] Comment on above: Performed By: #### C BC ####[facility] [address] [place] [address]Dr. Eryn Parsons Hematocrit (Bld) [Volume fraction] 46.1 % Normal 42.0-54.0 [facility] Comment on above: Performed By: #### C BC ####[facility] [address] [place], [place] [address]Dr. Rosamariamarily Parsons Hemoglobin (Bld) [Mass/Vol] 15.2 g/dL Normal 14.0-18.0 [facility] Comment on above: Performed By: #### C BC ####[facility] [address] [place], [place] [address]Dr. Rosamariamarily Parsons IG # 0.03 10e3/ul Normal 0.00-0.03 [facility] Comment on above: Performed By: #### C BC ####[facility] [address] [place], [place] [address]Dr. Eryn Parsons IG % 0.4 % Normal 0.0-0.5 [facility] Comment on above: Performed By: #### C BC ####[facility] [address] [place], [place] [address]Dr. Rosamariamarily Parsons LYMPH # 2.4 103/ul Normal 1.2-3.8 [facility] Comment on above: Performed By: #### C BC ####[facility] [address] [place], [place] [address]Dr. Eryn Parsons Lymphocytes/100 WBC (Bld) 31.8 % Normal 20.5-60.0 [facility] Comment on above: Performed By: #### C BC ####[facility] [address] [place], [place] [address]Dr. Rosamariamarily Parsons MANUAL DIFF REQ NO Normal [facility] Comment on above: Performed By: #### C BC ####[facility] [address] [place], [place] [address]Dr. Eryn Parsons MCH (RBC) [Entitic mass] 28.6 pg Normal 25.9-34.0 [facility] Comment on above: Performed By: #### C BC ####[facility] [address] [place] [id number]. Eryn Issa MCHC (RBC) [Mass/Vol] 33.0 g/dL Normal 29.9-35.2 [facility] Comment on above: Performed By: #### C BC ####[facility] [address] [place] [id number]. Eryn Parsons MCV (RBC) [Entitic vol] 86.8 fL Normal 80.0-94.0 [facility] Comment on above: Performed By: #### C BC ####[facility] [address] [place], [place] [address]Dr. Eryn Parsons MONO # 0.6 103/ul Normal 0.3-0.8 [facility] Comment on above: Performed By: #### C BC ####[facility] [address] [place], [place] [address]Dr. Eryn Parsons Monocytes/100 WBC (Bld) 7.2 % Normal 1.7-12.0 [facility] Comment on above: Performed By: #### C BC ####[facility] [address] [place], [place] [address]Dr. Eryn Parsons NEUT # 4.5 103/ul Normal 1.4-6.5 [facility] Comment on above: Performed By: #### C BC ####[facility] [address] [place], [place] [address]Dr. Eryn Parsons Neutrophils/100 WBC (Bld) 58.8 % Normal 43.0-75.0 [facility] Comment on above: Performed By: #### C BC ####[facility] [address] [place], [place] [address]Dr. Eryn Parsons Platelet mean volume (Bld) [Entitic vol] 10.1 fL Normal 9.5-13.5 [facility] Comment on above: Performed By: #### C BC ####[facility] [address] [place], [place] [address]Dr. Eryn Parsons PLT 258 103/ul Normal 150-450 [facility] Comment on above: Performed By: #### C BC ####[facility] [address] [place], [place] [address]Tn. Eryn Parsons RBC 5.31 106/ul Normal 4.70-6.10 [facility] Comment on above: Performed By: #### C BC ####[facility] [address] [place], [place] [address]VfFeliciano Parsons WBC 7.6 103/ul Normal 4.0-11.0 [facility] Comment on above: Performed By: #### C BC ####[facility] [address] [place] [id number]. Eryn Parsons FREE T3on 04-04-2022 FREE T3 2.69 pg/mlL Normal 2.18-3.98 [facility] Comment on above: Performed By: #### D BEBE, LIPID, FT3, TSH, T4, CMP #### [facility] [address] [place], [place] [address] Dr. Eryn Parsons GLYCOHEMOGLOBIN A1Con 2021 ADA RECOMMENDATION SEE BELOW Normal [facility] Comment on above: Result Comment: ADA RECOMMENDED LIMIT 4.0 - 6.0 ADA THERAPEUTIC TARGET < 7.0 ACTION SUGGESTED > 7.0 Performed By: #### A 1C ####[facility] [address] [place] [address]DrFeliciano Parsons Glucose [Mass/Vol] 117 mg/dL Normal [facility] Comment on above: Performed By: #### A 1C ####[facility] [address] [place] [id number] Parsons HbA1c (Bld) [Mass fraction] 5.7 % Normal 4.5-6.2 [facility] Comment on above: Performed By: #### A 1C ####[facility] [address] [place] [address]Dr. Eryn Parsons LIPID PROFILEon 04-04-2022 CHOL-HDL RATIO NORM SEE BELOW Normal [facility] Comment on above: Result Comment: 3.3 - 4.4 LOW RISK 4.4 - 7.1 AVERAGE RISK 7.1 - 11.0 MODERATE RISK >11.0 HIGH RISK Performed By: #### D BEBE, LIPID, FT3, TSH, T4, CMP #### [facility] [address] [place] [address] [address] Eryn Parsons Cholesterol [Mass/Vol] 212 mg/dL Critically high <=200 [facility] Comment on above: Performed By: #### D BEBE, LIPID, FT3, TSH, T4, CMP #### [facility] [address] [place] [address] [address] Eryn Parsons Cholesterol in HDL [Mass/Vol] 45 mg/dL Normal 40-60 [facility] Comment on above: Performed By: #### D BEBE, LIPID, FT3, TSH, T4, CMP #### [facility] [address] [place] [address] Dr. Eryn Parsons Cholesterol in LDL [Mass/Vol] 128.2 mg/dL Normal [facility] Comment on above: Performed By: #### D BEBE, LIPID, FT3, TSH, T4, CMP #### [facility] [address] [place] [address] Dr. Eryn Parsons Cholesterol.total/ Cholesterol in HDL [Mass ratio] 4.7 {ratio} Normal [facility] Comment on above: Performed By: #### D BEBE, LIPID, FT3, TSH, T4, CMP #### [facility] [address] [place] [address] Dr. Eryn Parsons HDL NORMAL > or = 60 mg/dl - LO W CARDIOVASCULAR RISK <40 mg/dl - HIGH CARDIOVASCULAR RISK Normal [facility] Comment on above: Performed By: #### D BEBE, LIPID, FT3, TSH, T4, CMP #### [facility] [address] [place] [address] Dr. Eryn Parsons LDL CALC NORMAL SEE BELOW Normal [facility] Comment on above: Result Comment: <100 mg/dl OPTIMAL 100 - 129 mg/dl NEAR OR ABOVE OPTIMAL 130 - 159 mg/dl BORDERLINE HIGH 160 - 189 mg/dl HIGH >190 mg/dl VERY HIGH Performed By: #### D BEBE, LIPID, FT3, TSH, T4, CMP #### [facility] [address] [place] [address] Dr. Eryn Parsons Triglyceride [Mass/Vol] 194 mg/dL Critically high <=150 [facility] Comment on above: Performed By: #### D BEBE, LIPID, FT3, TSH, T4, CMP #### [facility] [address] [place] [address] [address] Eryn Parsons VLDL CALC 38.8 mg/dL Normal [facility] Comment on above: Performed By: #### D BEBE, LIPID, FT3, TSH, T4, CMP #### [facility] [address] [place] [address] [address] Eryn Parsons OCC BLD IMMUNO SCREENon 03-22 OCCULT BLOOD Negative Normal NEGATIVE [facility] Comment on above: Performed By: #### O BSCRN #### [facility] [address] [place] [address] [address] Eryn Parsons PROF 14(COMP METB)on 022 Albumin [Mass/Vol] 4.1 g/dL Normal 3.4-5.0 [facility] Comment on above: Performed By: #### D BEBE, LIPID, FT3, TSH, T4, CMP #### [facility] [address] [place] [address] [address] Eryn Parsons Albumin/Globulin [Mass ratio] 1.2 {ratio} Normal [facility] Comment on above: Performed By: #### D BEBE, LIPID, FT3, TSH, T4, CMP #### [facility] [address] [place] [address] [address] Eryn Parsons ALP [Catalytic activity/Vol] 81 U/L Normal 46-116 [facility] Comment on above: Performed By: #### D BEBE, LIPID, FT3, TSH, T4, CMP #### [facility] [address] [place] [address] [address] Eryn Parsons ALT [Catalytic activity/Vol] 64 U/L Critically high 16-63 [facility] Comment on above: Performed By: #### D BEBE, LIPID, FT3, TSH, T4, CMP #### [facility] [address] [place] [address] [address] Eryn Parsons Anion gap [Moles/Vol] 12.2 mmol/L Normal [facility] Comment on above: Performed By: #### D BEBE, LIPID, FT3, TSH, T4, CMP #### [facility] [address] [place] [address] Dr. Eryn Parsons AST [Catalytic activity/Vol] 25 U/L Normal 15-37 [facility] Comment on above: Performed By: #### D BEBE, LIPID, FT3, TSH, T4, CMP #### [facility] [address] [place] [address] Dr. Eryn Parsons Bilirubin [Mass/Vol] 0.4 mg/dL Normal 0.2-1.0 [facility] Comment on above: Performed By: #### D BEBE, LIPID, FT3, TSH, T4, CMP #### [facility] [address] [place] [address] Dr. Eryn Parsons Calcium [Mass/Vol] 9.2 mg/dL Normal 8.5-10.1 [facility] Comment on above: Performed By: #### D BEBE, LIPID, FT3, TSH, T4, CMP #### [facility] [address] [place] [address] Dr. Eryn Parsons Chloride [Moles/Vol] 103 mmol/L Normal 98-107 [facility] Comment on above: Performed By: #### D BEBE, LIPID, FT3, TSH, T4, CMP #### [facility] [address] [place] [address] Dr. Eryn Parsons CO2 [Moles/Vol] 28.7 mmol/L Normal 21.0-32.0 [facility] Comment on above: Performed By: #### D BEBE, LIPID, FT3, TSH, T4, CMP #### [facility] [address] [place] [address] Dr. Eryn Parsons Creatinine [Mass/Vol] 1.00 mg/dL Normal 0.70-1.30 [facility] Comment on above: Performed By: #### D BEBE, LIPID, FT3, TSH, T4, CMP #### [facility] [address] [place] [address] Dr. Eryn Parsons EGFR-AF HAITIAN >60 Normal >=60 [facility] Comment on above: Performed By: #### D BEBE, LIPID, FT3, TSH, T4, CMP #### [facility] [address] [place] [address] Dr. Eryn Parsons EGFR-NON AF HAITIAN >60 Normal >=60 [facility] Comment on above: Performed By: #### D BEBE, LIPID, FT3, TSH, T4, CMP #### [facility] [address] [place] [address] Dr. Eryn Parsons Globulin (S) [Mass/Vol] 3.5 g/dL Normal [facility] Comment on above: Performed By: #### D BEBE, LIPID, FT3, TSH, T4, CMP #### [facility] [address] [place] [address] Dr. Eryn Parsons Glucose [Mass/Vol] 97 mg/dL Normal 74-106 [facility] Comment on above: Performed By: #### D BEBE, LIPID, FT3, TSH, T4, CMP #### [facility] [address] [place] [address] Dr. Eryn Parsons Potassium [Moles/Vol] 3.9 mmol/L Normal 3.5-5.1 [facility] Comment on above: Performed By: #### D BEBE, LIPID, FT3, TSH, T4, CMP #### [facility] [address] [place] [address] Dr. Eryn Parsons Protein [Mass/Vol] 7.6 g/dL Normal 6.4-8.2 [facility] Comment on above: Performed By: #### D BEBE, LIPID, FT3, TSH, T4, CMP #### [facility] [address] [place] [address] Dr. Eryn Parsons Sodium [Moles/Vol] 140 mmol/L Normal 136-145 [facility] Comment on above: Performed By: #### D BEBE, LIPID, FT3, TSH, T4, CMP #### [facility] [address] [place] [address] Dr. Eryn Parsons Urea nitrogen [Mass/Vol] 14.0 mg/dL Normal 7.0-18.0 [facility] Comment on above: Performed By: #### D BEBE, LIPID, FT3, TSH, T4, CMP #### [facility] [address] [place] [address] [address] Eryn Parsons Urea nitrogen/Creatinin e [Mass ratio] 14.0 mg/mg Normal [facility] Comment on above: Performed By: #### D BEBE, LIPID, FT3, TSH, T4, CMP #### [facility] [address] [place] [address] [address] Eryn Parsons T4on 04-04-2022 T4 [Mass/Vol] 7.40 ug/dL Normal 4.50-12.10 [facility] Comment on above: Performed By: #### D BEBE, LIPID, FT3, TSH, T4, CMP #### [facility] [address] [place] [address] Dr. Eryn Parsons TSHon 04-04-2022 TSH 2.794 uIU/mL Normal 0.358-3.740 [facility] Comment on above: Performed By: #### D BEBE, LIPID, FT3, TSH, T4, CMP #### [facility] [address] [place] [address] Dr. Eryn Parsons TSH RANGE SEE BELOW Normal [facility] Comment on above: Result Comment: <0.3 4 UIU/ml HYPERTHYROID 0.34-5.60 UIU/ml EUTHYROID >5.60 UIU/ml HYPOTHYROID Performed By: #### D BEBE, LIPID, FT3, TSH, T4, CMP #### [facility] [address] [place] [address] Dr. Eryn Parsons ED Noteon 02-16-2022 ED Note-Physician Basic Information Time Seen: Carrie Pat PA-C 10/24/2021 12:08 Chief Complaint chest pain started last night around 6pm with L arm numbness/tingling since 0630 this morning. denies SOB. c/o [employer] cough with headache. denies N/V/D. History of [...] family history of both CAD, HTN and WI. Review of Systems ROS: Constitutional: Denies fever, [...] Stop d (more content not included)... Normal [facility] Comment on above: Result Comment: Elec [...] acid reflux High Cholesterol HTN Normal [facility] General Surgery Office/Clini c Noteon 12-27-2021 [...] With When Contact Information CATALINA JACKMAN, Vijaya Cronin, PILO Only if needed [address] [place] [address]- Additional Instructions: Problem List/Past Medical History Ongoing [...] influenza virus vaccine, inactivated 08/2021 Recorded Normal [facility] Comment on above: Result Comment: Elec tronically Signed By: CATALINA JACKMAN, Vijaya Cronin\.br\Date and Time Signed: 12/27/21 15:53 EST Pathology Noteon 12-20-2021 Pathology Note [id number]#[id number]:127 Normal [facility] Operative Reporton Operative Report [id number]#1.00CD:127 Normal [facility] Consent for Procedure/Surger yon 11-30-2021 Consent for Procedure/Surgery [id number]#1.00CD:127 Normal [facility] Ambulatory Visit Summaryon 0 11-29-2021 Ambulatory Visit [...] for. acid reflux High Cholesterol HTN Normal [facility] ECHOCARDIO M/2D COMPLETEon 0 11-21-2021 ECHOCARDIO M/2D COMPLETE Patient: FRANK LUO Exam Date: 11/21/2021 : 1975 Gender:M Ordering : DR SHAINA NORMAN . Admission #: [id number] Family : Order #: [id number] CLICK HERE TO VIEW EXAM ECHOCARDIOGRAM REPORT [...] Area(A4C): 17.20 cm2 Left Atrium Systolic Volume(A2C): 57633 mm3 Left Atrium Systolic Volume(A4C): 70780 mm3 Mitral Valve MV E to A [...] Wilcox M.D. on 11/21/2021 at 15:51 Normal [facility] Physician Referralon 022 Physician Referral [id number]#[id number]:127 Normal [facility] Coding Summary.on 11-01-2021 Coding Summary. CD:[id number] Gh0bWw+PG hlYWQ+GR0GDARzI12czOTdvB7GT1q IIQ2TYHNCPDWHWQ4GVM4paDF7VEst V9OltdRr KixpsLKwLU72RAi6RWO6xBfxNJric Q7xeKDjW4w3VwGfLU16oK24OGrePG TyFoG1LfHztbzriMBv Q8dpIeLyhHIoPdj+PHRhYmxlIHdpZ XYxAGreJHNeWdBgbBxeOM4vXa4cZH VyLWNvbGxhcHNlOiBj m3slRDAoTMdkVW3daYqdF6WxuCQ4B QFel4w7Mw95wXP+JSVfTZX2cXuwRJ qbg440PfBxu2hrKZR5 vUIpWZilUZS4A94th6N9QCLmPZZxK CK9yZI2rX6voBqvblmlQ4XqlIEyNc B3YBY0eMMmrN3ljQeg pxwdcK8uNcl+L45NEG5CZNARVY0UT dj6W7TgTdvoeVM+UH84HDAmPE86dR UqeHLqv5cliYt6PtZc VMNmMZX7kTieTAgkw1UhEVCdY13hw YXdg6O1RIOyoCxlqAEjLsVvcST9fN 5kOLfqdbasy6djcmci Hurxt4wnnd68eH74A70aXYpbPQAdC GN1AGIrFKPqrScdfd6ibS4yPg7+ID nsl9uzz5utdCv0UgMe IMAkdtBoaLujQAG0v3KrSv86Y6Xzt Gokp5UpUda5cg51kRBvh3I1uHA3BJ xxKYVbgL8gBHoeStT9 IZLfWeTzeG87fGWfXJhbUi7nzEewp BkuSM1sGNWlszaoJAQtlM3bFKUwrT RhpYfuJI6kLTJedovm v962OwTeZBU0SRVeeCXbZ7JgoJ4mD cZiGNBvFOTqW1WezXNjRMemP089BB pnOfN4QLJmewStF8Ut DFBytIufAhP0t7M1Sh0Cw9JliuzyR TK5DUbzHBSjKgRwEaXrRwO1J5InTr w8QQJuaGtvAP3xB2Fh AORkxzcaqjeucGB9UIJjBLPqfZ57h CFjTKrdIa4dc2H9n632DJOiLPBaxT 16Ux4opYgqGOLlpXGP cC1mgijhg1zyzvdfJhAwTFJnPEx9W Ae9WDZaxVenAgClVNU3ZxW5OQM2aF KvqJ1emGtsyvosiZ0k Oyc+E78lzC8hOQE1XRG8unumOWMpf sGiWX15BJ59N9JwOizbvLSmhDJ+PG YxneLoeNedVY1eUzNc y2rmx4DoLBtqX0GmOULzAZztTdi1V CRyZYM0zGY5dH1uBUPbUHowy7F4tW F3K0LvhoRwaa6ip4zd GRUvLRsnK63kdWVdj2C4VBIkkUR4U DNwhDeeQqGhsA86Atf+PGNvbGdyb3 SkJkfhc5pmx0wblYg8 IiMmNFHhpbCgzGvhEJM5r7BeGt55X 29sIHdpZHRoPSIxNSUiIHZhbGlnbj 1qkB0fFj3+PGNvbCB3 mIS1dV5zVHZoJvJ4UBrcJ210SvBxe MQeNjedx7cvq2hxrCl1ZiMxCVXphn VspMxcLNE4d0HvYh64 T35nGLxnIHKjRZBkARCiFVNuwVdbv l1mxJ6wTg2+WR8zc8xznk13bY22gK I+YSApZLR1gDtyLVbo CCIwmZ8xHJzwMbZ3NODgIfFxtS70p MOeGJuqAm8xvMcypJpvIZ4uXTQpml sui210IyGwd1ilVKIg eHYtYDrkKWD9L30tr8D4ZYClRSKmT MZ6wKY6nH3utRyczrmjpLDffLouez SlcZbjUDrtDSrkS696 YJPjvKkrNiZaqStqdkDoKwOcGRk8W 7FkBvq9UXWrhYepMV9keFKhMYdqTf 6ygFspbNvaDA1qHLQo nbmhl146EmXkq9jkHGZstVPySGvlH QJ8Q40bk3Z8RIIiLSQlCCM0nOR2zX 1hbGlnbjogbGVmdDsg vyMvkPhpIZkrLKugG627FRDbuLkvA jOdtbYvUMJplXS6HA92QQ94pLPss9 C8zOC8B8DvLTJqqqxf jolwfVR4KXVbOUVliN03Pz2emRtzJ m5eUHNhTCD7LTCftHVgH1GojK8iYz XmMWYtTYGfK6BcdNMi NGxtS461WVbaAeP5IPUavpTnS7FeX NKmhEtbFxE7v8H2Yh1SQ7S3IS80IW 51oBAlp0F4wRT8X8Wm ETDrlxycdilcvSV5STZfDWZpoI52K s2qoChrOi5mJGTdNNV7ZOHwmFRcB2 ByxH8vVbXuZKRrPXVc P6IelSDpOSpiY289UQciZjY8IEZqo nXeP6RrZZKxoAsyIvP3q7D0Lz8VPG o8MZ29DP80mJIps7V6 tPX3O8KaWUYvoccrbjexuUW2HEScZ TJpvJ87Al2ixYerEo5sLVQrBDC5HD HtyIZhP8AbcE9lQoYq KIJeCPGfU4HaeOGnFPpjU781QEeiL gE0VHDdgcFtE5VmCGLtwBmtBiE4l0 T0Ui2JERCbRO32PWZ3 eEC5CJ79MG71C8VpVhxtuRFqsVM+P HRhYmxlIHdpZHRoPScxMDAlJyBzdH usMB5sNr8cQOJgNGMu yWvcuQQwWnTnt4cyGDJvPNncLK9jx ReqT4AskXU7FFHic5v3Rt55O07dX4 JvdXA+ALTaxRP5oUR3 bB3pDbXnKdJ4ZVfxZ540WlDkyHFpN podu2frq1zjpXw4GlS3ILDqztZufI znSSJ5r7RfOd68L23j PSeqODVsMXHzRNIwOTRarMhtvp9zy G9wIi8+ZZEvdHU2jRK8bA9mLmDxMc X6YUsaB034NmHizETz Slcuu1jxv8eqdDb5KeIdHMLssbHeb VcmFMK9t4TnOa28W8AufGvld0TgYr a2bs60vJEvz3O8uHL0 U2UhETTiaxzdjIPruWsaNI1pSBThl xyqKENhqJ0eNIJpZ7g3OfMaIwU8JF ofH6WerpM2QKSngTFv BDucULG9H71xb7V9NGCyMVNaVJQ4o RX3nP0utAgghyqcuGDibUqgfzIflM ojHGzeYPdmV611BIGd dCyqBNSslO1aRDSwhOCdrIbfYO9oA VUoaatrErFWCAUzJJCQAFTRBIM6L6 LfFxr8RGOekImyTB6n kSXvLSbpBy9spCdcrShbBX4jTOHgq fioLKEutO2dLXUkmUUycFgnQS9vHJ Yiiwigw904VsUzYMR0 NGYqyIOgU7SloF9jZqOsXFSnWVWwK 7OsiSYgEPfpN798JKsfSfH7RTDuyv ToG8FkZACrbXcrRmK2 x4K4Cn0xQw5nZM1uRAx5VS08AI43g IDep3I7bID7J2WzQIBilpirwnkbxR I8RNRcPMMsmP55kATm SVfnRi0qu4C7q504CNAjNPMmpZ66D y6awSdxVCDaiGVScE3wuascf3fuzk nfHlJdKWPuYYp9UVu4 FMSbaBsiGrHlNER5JdU7NOH5mFXjc E3reVjjmfijjU7bGuq+NDQgWWVhcn E1H5PnJei7NZOhpAub AI8cfLBlGLxzMw8heXyepTshZM1kY TGccnwtQHMfhR1lCELrkWAfcIpnET 5mSFJfermca682GvRp OGY5RSUmmIZiG1OovM5nLeZxFVMxW PNjU3EwoGSyGPzwI523EBhvLmL3UU PupxMyS5YyOJQffIlj PbX6w3F7Pq7LVHxjAN18LT20iXUzc 0M6cCD2C5HsWPZwjsfvsnicaEE7AO BnXIMziB79zDMsYGmr Qr5cm9E3x968XKFkRUEwtB81Qo4bc XkdLDIksEPQoQ2nqxdzq4ejiutbIw NyWVScNYi9YMj7JXLv kGqkGwHoTKL5YpI0QGI5cGBnkD0ry SbspiimdX0kSpp+XM9gerssjtN2EC 80LJ66R6XtVjbwkHVm bGU+PHRhYmxlIHdpZHRoPScxMDAlJ pTmmMtlNZ0pMn5bTOGpNXWnmXytxE EsAyBzd3zkIYRsNKan WZ9mpHdbM5EclHL5PRPzn3c0Vz94I 99cT7EkgPF+QXSbiYE4mSJ0yT2nXm FhHcU1LXphW938SlFo cGSkAhdgn5vjb3zyhPr6QtGhIVYnu vSqkNcrKYK2z4GaYn26M53fTCjlPA RoPSIyMCUiIHZhbGln im0iyA6cCu5+WLWlwCF9gDL5pG1fJ eMaSrJ9JJsrF691GrSeaVCwXqhbH6 8wE2ScgWV+PHRyPjx0 BODoeCvqZN1xzEFxZOlnAw7kOEO2E aZhPfBuUMpxU2WlIVZxktbbmzeftT W8PPTrUOBjvD27Pr9q tQqtZi6bFLEfFBG0NNKdyZJfK8Rvj Z3lSkNdQPByLIVsG8QrwWSzJXbvK9 36GEaxFtI5LPNpybHz S8GuKWGeoIqdQhZ4x8B0Ts3NgKvbl FInPN8gAoNbAUt0N2IdAvi2FMTjxK ntMR1jbQXlXOncPm6s mDcjrMwsNN9zQNQamtajj926WrCyn 3sdHHMohUMhJNzqJCK2Y85am4N7PG ApNDVuNPD9bUZ6iY3l bGlnbjogbGVmdDsgdmVydGljYWwtY PrjX196GIIfeAziBlCAEfg7P2NiHn v8EKBqsEwzHF9zoDZt ZIcqBz0teAimlPgwQY9nNGBnwrirc 368OnFwi4uiVTXxvXZqXKnzNFU8Q4 8jj3C5VFFvBUEvTXC7 oQE0pP0wfHnzaoztsOQsfQunxaUzy VhbYKppDRapS552TURuuBylAh6EQa g3H2EvFzz0AMZpzCrw ZB0ueCVfNHcjZu1uyAxlbItcHE2eH EDwpskjp411EkSiq6sqZIOgsXHgYN ijEPL1U41bt9P4QARo IJXbIZR9zZT3bK7zeKfbhxtegZXrg RvkagEjoZkvJTmtTJvrM845AEJjfT snPlBheWVyOjwvdGQ+ DL05xz94E3SnCmrsOok3VXUtAET4s KX7sW2hHZXqASqzy1K9sWO5J9Fdqv Mpoi3ls2bbJJJiMEvg Y29s (more content not included)... Normal [facility] NM STRESS/REST MULTIon 10-27 NM STRESS/REST MULTI Patient: FRANK LUO Exam Date: 10/27/2021 : 1975 Gender:M Ordering : DR SHAINA NORMAN . Admission #: [id number] Family : Order #: [id number] CLICK HERE TO VIEW EXAM RADIOLOGY REPORT [...] Aguero MD on 10/28/2021 at 09:51 Normal [facility] Discharge Instructionson Discharge Instructions [id number]:127 Normal [facility] ED Noteon 10-25-2021 ED Note Basic Information Time Seen: Carrie Pat PA-C 10/24/2021 12:08 Chief Complaint chest pain started last night around 6pm with L arm numbness/tingling since 0630 this morning. denies SOB. c/o [employer] cough with headache. denies N/V/D. History of [...] family history of both CAD, HTN and WI. Review of Systems ROS: Constitutional: Denies fever, [...] Stop d (more content not included)... Normal [facility] Auto Diffon 10-24-2021 Basophils/100 WBC (Bld) 0.3 % Normal 0.0-2.0 [facility] Comment on above: Order Comment: Order Added by Discern Expert. Performed By: #### 1 3721188, 5613608, 0074991, 63977119, 0191511, 7058960, 2218929, 81583796 ####[facility] [address] [place] [address] Basophils/Leukocyt es Auto (Bld) [Pure # fraction] 0.0 E9/L Normal 0.0-0.2 [facility] Comment on above: Order Comment: Order Added by Discern Expert. Performed By: #### 1 4295710, 8516037, 5314897, 15897591, 2783459, 2511320, 4793435, 49763180 ####[address] [place] [address] Eosinophils/100 WBC (Bld) 0.6 % Normal 0.0-8.0 [facility] Comment on above: Order Comment: Order Added by Discern Expert. Performed By: #### 1 1744291, 3530350, 3566500, 48267745, 4964321, 9263714, 8126367, 32554513 ####[address] [place] [address] Eosinophils/Leukoc ytes Auto (Bld) [Pure # fraction] 0.0 E9/L Normal 0.0-0.5 [facility] Comment on above: Order Comment: Order Added by Discern Expert. Performed By: #### 1 3832295, 8139706, 4634307, 36442844, 1717979, 0453436, 4562420, 69915316 ####[address] [place] [address] Lymphocytes/100 WBC (Bld) 24.8 % Normal 14.0-50.0 [facility] Comment on above: Order Comment: Order Added by Discern Expert. Performed By: #### 1 3381104, 6878853, 6692556, 53260249, 3976200, 1468562, 1193529, 34438624 ####[address] [place] [address] Lymphocytes/Leukoc ytes Auto (Bld) [Pure # fraction] 1.8 E9/L Normal 1.0-4.0 [facility] Comment on above: Order Comment: Order Added by Discern Expert. Performed By: #### 1 0791804, 6183206, 8189044, 54311571, 7296854, 3645512, 4097741, 59607334 ####[address] [place] [address] Monocytes/100 WBC (Bld) 5.4 % Normal 4.0-14.0 [facility] Comment on above: Order Comment: Order Added by Maricarmen Expert. Performed By: #### 1 4665923, 0195898, 9931212, 63365040, 5157628, 7637876, 4809085, 20241508 ####[address] [address] Monocytes/Leukocyt es Auto (Bld) [Pure # fraction] 0.4 E9/L Normal 0.2-1.0 [facility] Comment on above: Order Comment: Order Added by Maricarmen Expert. Performed By: #### 1 1141557, 1777580, 3162810, 47891519, 4924333, 7561832, 4896095, 38791911 ####[address] [place] [address] Neutrophils/100 WBC (Bld) 68.9 % Normal 36.0-75.0 [facility] Comment on above: Order Comment: Order Added by Maricarmen Expert. Performed By: #### 1 2667393, 0604855, 5410508, 38504904, 5556773, 7610566, 5925119, 11758609 ####[address] [address] Neutrophils/Leukoc ytes Auto (Bld) [Pure # fraction] 5.0 E9/L Normal 2.0-7.5 [facility] Comment on above: Order Comment: Order Added by Discern Expert. Performed By: #### 1 7244562, 1155002, 5258054, 31346308, 6782577, 2601363, 0265688, 23075578 ####[facility] [address] [place] [address] BMPon 10-24-2021 Creatinine [Mass/Vol] 0.9 mg/dL Normal 0.5-1.3 [facility] Comment on above: Performed By: #### 1 8864338, 2608304, 8568958, 44795770, 6436185, 2917250, 0982845, 83925413 ####[facility] [address] [place] [address] Urea nitrogen [Mass/Vol] 13 mg/dL Normal 5-21 [facility] Comment on above: Performed By: #### 1 6473949, 1314308, 8861922, 65429070, 4840822, 7304773, 4353862, 66024783 ####[facility] [address] [place] [address] Urea nitrogen/Creatinin e [Mass ratio] 14 No Units Normal 10-20 [facility] Comment on above: Performed By: #### 1 5726571, 0775182, 3379843, 06000090, 9854228, 8342766, 4735759, 32924919 ####[facility] [address] [place] [address] Anion gap [Moles/Vol] 19 mmol/L High 6-16 [facility] Comment on above: Performed By: #### 1 1480187, 4504302, 2548748, 96391204, 5175922, 7120210, 1284459, 42668260 ####[facility] [address] [place] [address] Calcium [Mass/Vol] 9.4 mg/dL Normal 8.9-11.1 [facility] Comment on above: Performed By: #### 1 4985111, 4464147, 2651834, 47290345, 8878989, 7917530, 9756828, 50946355 ####[facility] [address] [place] [address] Chloride [Moles/Vol] 99 mmol/L Low 101-111 [facility] Comment on above: Performed By: #### 1 2070867, 5438599, 6421284, 71135449, 6825967, 4952067, 5706118, 58314326 ####[facility] [address] [place] [address] CO2 [Moles/Vol] 21 mmol/L Normal 21-31 [facility] Comment on above: Performed By: #### 1 2885769, 0660146, 7557390, 97989267, 1062953, 7308668, 6469241, 66590403 ####[facility] [address] [place] [address] Glucose [Mass/Vol] 101 mg/dL Normal 55-199 [facility] Comment on above: Result Comment: If t his glucose result represents a fasting glucose, interpretation should refer to the following reference range: 55-99 mg/dL Performed By: #### 1 4484863, 4342730, 8102084, 01522762, 5363709, 7537565, 1862770, 36205985 ####[facility] [address] [place] [address] Potassium [Moles/Vol] 3.9 mmol/L Normal 3.5-5.3 [facility] Comment on above: Performed By: #### 1 4247425, 0175877, 0501312, 27135056, 8590593, 9294833, 6588380, 42877576 ####[facility] [address] [place] [address] Sodium [Moles/Vol] 135 mmol/L Normal 135-145 [facility] Comment on above: Performed By: #### 1 7871704, 1117286, 1148726, 40487605, 9945552, 4159073, 8100997, 73629574 ####[address] [place] [address] CBC w/ Auto Diffon Erythrocyte distribution width (RBC) [Ratio] 14.1 % Normal 10.9-14.2 [facility] Comment on above: Performed By: #### 1 8536571, 0478670, 6118063, 26569009, 6988189, 2215596, 4667566, 39488009 ####[address] [place] [address] Hematocrit (Bld) [Volume fraction] 44.7 % Normal 37.7-49.0 [facility] Comment on above: Performed By: #### 1 4775218, 1844300, 2048187, 61451005, 4462688, 0997208, 0647359, 47759787 ####[address] [place] [address] Hemoglobin (Bld) [Mass/Vol] 15.4 g/dL Normal 13.5-17.5 [facility] Comment on above: Performed By: #### 1 2092611, 3810765, 0509047, 75961818, 6247553, 8191578, 9551914, 96138794 ####[address] [place] [address] MCH (RBC) [Entitic mass] 29.1 pg Normal 27.0-34.0 [facility] Comment on above: Performed By: #### 1 7294184, 6167165, 4660354, 76972290, 2739023, 3179318, 3957139, 98623980 ####[address] [place] [address] MCHC (RBC) [Mass/Vol] 34.4 g/dL Normal 31.4-36.0 [facility] Comment on above: Performed By: #### 1 1511761, 0603914, 2442189, 36607370, 5524810, 0711584, 5723604, 60556473 ####[facility] [address] [place] [address] MCV (RBC) [Entitic vol] 84.7 fL Normal 80.0-100.0 [facility] Comment on above: Performed By: #### 1 2237711, 3018181, 8387011, 27046287, 8768484, 5658227, 3272886, 23142874 ####[address] [place] [address] Platelet mean volume (Bld) [Entitic vol] 8.3 fL Normal 6.4-10.8 [facility] Comment on above: Performed By: #### 1 6708836, 3257388, 4912980, 87996163, 6029369, 3755316, 5777112, 46838716 ####[address] [address] Platelets (Bld) [#/Vol] 229.0 E9/L Normal 150.0-500.0 [facility] Comment on above: Performed By: #### 1 4745460, 7933112, 3930282, 07527676, 1097793, 4413183, 5827418, 45834293 ####[address] [place] [address] RBC (Bld) [#/Vol] 5.3 E12/L Normal 4.3-5.9 [facility] Comment on above: Performed By: #### 1 5059304, 0252428, 3338366, 53267634, 7486657, 1165120, 8883879, 63625460 ####[address] [place] [address] WBC corrected for nucl RBC Auto (Bld) [#/Vol] 7.2 E9/L Normal 4.0-11.0 [facility] Comment on above: Performed By: #### 1 5208801, 6782823, 5252681, 20260285, 9186606, 6088260, 8765401, 58813790 ####[facility] [place] [address] CT Head or Brain w/o Contras ton [...] M.D. Transcribed by: YUE Technologist: KASSY Normal [facility] Consent for Treatmenton Consent for Treatment [id number]:127 Normal [facility] D-Dimeron 10-24-2021 Fibrin D-dimer FEU (PPP) [Mass/Vol] <215 Low 215-500 [facility] Comment on above: Result Comment: This [...] infections Liver cirrhosis Performed By: #### 1 9053558, 3725694, 5922644, 43897705, 4063291, 0599626, 9054999, 99405739 ####[facility] [address] [place] [address] ED Clinical Summaryon 2021 ED Clinical Summary [address] [address] ED Clinical Summary Person Information Name: FRANK LUO/[place] Age: 46 Years : 1975 Sex: Male Language: Slovenian PCP: Shaina Norman MD Marital Status: Visit [...] 10/24/2021 17:43:57 10/24/2021 17:43:57 10/24/2021 17:43:57 ADDRESS: [address] [place] [id number] PHYS DOC NOTES: MEDICAL INFORMATION: Prescriptions Given: [...] every day. PATIENT EDUCATION INFORMATION: Instructions: Paresthesia, Yjzs-pr-Uwgr; Nonspecific Chest Pain, Adult, Nhbr-vv-Uubn Follow up: With: Address: When: Stacy JACKMAN, Hernandez Castellon [address] [place] [address] In 3 days 10/27/2021 DIAGNOSIS: 1:Chest pain, unspecified; 2:Left arm numbness Normal [facility] ED Patient Education Noteon 10-24-2021 ED [...] these instructions at home: Medicines ? Take kayj-lke-ppslkdg and prescription medicines only as told by [...] Eating a heart-healthy diet. A diet and swine nutritionist (dietitian) can help you to learn healthy [...] 03/26/2009 Document Revised: 04/10/2019 Document Reviewed: 04/10/2019 [employer] Patient Education ? 2020 [employer] Neurology Paresthesia Paresthesia is a burning [...] in y (more content not included)... Normal [facility] ED Patient Summaryon 022 ED Patient Summary (Inserted Image. Amisha ble to display) [address] [address] Patient Discharge Instructions Person Information Name: FRANK LUO Age: 46 Years Arrival Date: 10/24/2021 11:53:24 Discharge Diagnosis: 1:Chest pain, unspecified; 2:Left arm numbness Primary Care Physician: Shaina Norman MD Provider Information Primary Provider: Jac Doty DO Advanced Felt Strip Finisher:Carire Pat PA-C The exam and treatment you received in the Emergency Department were for an urgent problem and are not intended as complete care. It is important that you follow up with a doctor, nurse practitioner, or physician?s porcelain buildup assistant for ongoing care. If your symptoms [...] With: Address: When: Stacy JACKMAN, Hernandez Castellon [address] [place] [address] In 3 days 10/27/2021 In the event that this physician does not participate in your insurance network, please consult with your insurance company to find a nearby participating provider. Patient Education Materials: Paresthesia, Vtlx-vt-Nwbp; Nonspecific Chest Pain, Adult, Sjka-sl-Bobh A MESSAGE TO ALL PATIENTS REGARDING OPIOIDS PRESCRIPTION OPIOIDS: WHAT YOU NEED TO KNOW Prescription opioids can be used to help relieve qrctpsly-gr-kofmrn pain and are often prescribed following a [...] be struggling with addiction, tell your health customer care associate and ask for guidance or call [facility]? (more content not included)... Normal [facility] Lipase Levelon 10-24-2021 Lipase [Catalytic activity/Vol] 28 U/L Normal 13-58 [facility] Comment on above: Performed By: #### 1 2380876, 1964442, 3175141, 66976617, 9253355, 0692974, 4163519, 42526456 ####[facility] [address] [place] [address] PT & PTTon 10-24-2021 aPTT Coag (PPP) [Time] 32.9 second(s) Normal 25.1-36.5 [facility] Comment on above: Result Comment: Hepa rin therapeutic range (represented by Anti-Factor Xa activity of 0.2 - 0.4 U/mL) corresponds to PTT of 56.6 - 109.0 sec. Performed By: #### 1 5197451, 6037911, 0315395, 93551898, 4490972, 1811757, 6697180, 26437192 ####[facility] [address] [place] [address] INR Coag (PPP) [Relative time] 1.1 {INR} Invalid Interpretation Code [facility] Comment on above: Result Comment: INR results are specifically intended to assess patients stabilized on long-term Anticoagulation therapy suggested INR?s ?Less Intensive Anticoagulation? 2.0 ? 3.0 Conventional Range 3.0 ? 4.5 Performed By: #### 1 7384435, 0916790, 0637884, 13095124, 5350387, 5603432, 3516675, 71264169 ####[facility] [address] [place] [address] PT Coag (PPP) [Time] 12.8 second(s) Normal 10.2-12.9 [facility] Comment on above: Performed By: #### 1 5231263, 9443860, 4566588, 91521951, 6195078, 5746858, 3667998, 49625436 ####[facility] [address] [place] [address] Troponin 0 Hr.on 10-24-2021 Troponin I.cardiac [Mass/Vol] ng/mL Low 15.90-38.40 [facility] Comment on above: Result Comment: The 95% CI (Confidence Interval) PPV (Positive Predictive Value) for myocardial infarction in females is 38 pg/mL, in males 51 pg/mL. The results should be used in conjunction with clinical conditions of myocardial infarction. (Access High Sensitivity Troponin I Instructions For Use, [email or web address], May 2018) Performed By: #### 1 6695505, 4573989, 6295115, 72878806, 0207735, 5241667, 5172831, 04615186 ####[facility] [address] [place] [address] Troponin 3 Hr.on 10-24-2021 Troponin I.cardiac [Mass/Vol] ng/mL Low 15.90-38.40 [facility] Comment on above: Result Comment: The 95% CI (Confidence Interval) PPV (Positive Predictive Value) for myocardial infarction in females is 38 pg/mL, in males 51 pg/mL. The results should be used in conjunction with clinical conditions of myocardial infarction. (Access High Sensitivity Troponin I Instructions For Use, [email or web address], May 2018) Performed By: #### 1 4866254 ####[facility] [address] [place] [address] XR Chest Single Viewon 10-24 XR Chest [...] Itz Laguna MD Transcribed by: YUE Technologist: JESSIE Griffith [facility] eGFRon 10-24-2021 GFR/1.73 sq M.predicted among blacks MDRD (S/P/Bld) [Vol rate/Area] mL/min/{1.73_m2} Normal >=59 [facility] Comment on above: Order Comment: Order added by Discern Expert. Result Comment: eGFR is race adjusted. AA=. Performed By: #### 1 5092710, 6150529, 8637335, 42140610, 1484729, 6770501, 1292859, 47134393 ####[facility] [address] [place] [address] GFR/1.73 sq M.predicted among non-blacks MDRD (S/P/Bld) [Vol rate/Area] mL/min/{1.73_m2} Normal >=59 [facility] Comment on above: Order Comment: Order added by Discern Expert. Result Comment: Warehouse Stock Clerk nadine kidney disease could be indicated at eGFR's of less than 60 mL/min/1.73m2. Kidney failure is indicated at less than 15 mL/min/1.73m2. Performed By: #### 1 2064583, 9374604, 0091330, 66890104, 6618867, 3561973, 8399105, 76065400 ####[facility] [address] [place] [address] [facility] April 07, 2021 Shaina Norman, [address] [place] [address] [place] [address] Re: FRANK LUO Date of : 1975 Thank you for your referral of Frank Luo who was seen on consultation for injury to right alvarado. I have enclosed my consultation notes for your review. I will be happy to follow Frank should his symptoms persist. Sincerely, Vijaya Molina MD General Surgery [facility] Ambulatory Clinical Summaryo n 03-25-2021 Ambulatory Clinical Summary {rd-[id number]-pg-[id number]-1 b-95-49-0e-95-f0-bd}CD:[id number] [facility] Patient Educationon 03-25-20 21 Patient Education [...] your health care provider or diet and swine nutritionist (dietitian). This may include: ? Eating fewer [...] weight augustin (more content not included)... Normal [facility] Physician Referralon 021 Physician Referral [id number]#[id number]:127 Normal [facility] XR foot RT min 3V*on 021 XR foot RT min 3V* [facility] Main [place] [address] [place] [address] XRay Report Signed Patient: Frank Luo MR#: [id number] : 1975 Acct:[id number] Age/Sex: 45 / M ADM Date: 03/17/21 Loc: XDUCLY Room: Type: [facility] Attending Dr: Shelly Bellamy APRN, [employer]-C Ordering Provider: Shelly Bellamy APRN Date of Service: 03/17/21 XR/XR foot RT min 3V*: RIGHT FOOT/ANKLE INJURY ([id number]) XR/XR ankle RT min 3V*: RIGHT FOOT/ANKLE [...] Bolaños Jr., M.D.03/17/2021 6:58 PM Dictation Location: [place] [address] Transcribed By: MARIA FERNANDA 03/17/211857 Dictated By: Brandon Bolaños Jr, MD 03/17/211853 Signed By: 03/17/211857 [facility] Encounters Encounter Date Encounter Type Care Provider Facility Start: 10-10-2022 End: 10-11-[address] SHAINA NORMAN Facility:[facility] Start: 10-03-2022 End: 10-04-[address] SHAINA NORMAN Facility:[facility] Start: 04-06-2022 Encounter for genera l adult medical examination without abnormal findings DR SHAINA NORMAN [facility] Start: 04-04-2022 End: 04-05-[address] SHAINA [...] Facility:[facility] Payers Date Payer Category Payer Unknown [id number] 2..84 [id number] 1975 Unknown [id number] 2..84 [id number] 1975 Unknown [id number] 2.16.84 [id number] 1975 Unknown [id number] 1975 Unknown [id number] .16.84 [id number] 1975 Unknown [id number] 2.16.84 [id number] 1975 Unknown [id number] 2.16.84 [id number] 1957 Self-pay [id number] 1957 Unknown [id number] Clinical Note 12-14-2021 Note Date & Type [...] wound check. CC: Dr. Shaina Norman : [facility] Signed and Approved by: DR VIJAYA MOLINA . 12/20/2021 12:03:00 [facility] Clinical Note 11-29-2021 Note Date & Type [...] plan excisional biopsy under local anesthesia at [facility] for definitive diagnosis and treatment; informed [...] Status influenza virus vaccine, inactivated 08/2021 Recorded [facility] Comment on above: Result Comment: Eliza holguinally Signed By: CATALINA JACKMAN, Vijaya Brink\Date and [...] Tobacco Use:. Never Smokeless Tobacco Use:., 03/25/2021 [facility] Comment on above: Result Comment: Elec [...] section and content) DATE CREATED AUTHOR 03/26/2021 [facility] DATE CREATED AUTHOR AUTHOR'S ORGANIZ ATION 02/19/2022 [facility] DATE CREATED AUTHOR AUTHOR'S ORGANIZ ATION 10/18/2022 [facility] FOR RECORDS PERTAINING TO PATIENTS WHO ARE [...] BE BASED ON THE PRIMARY CLINICAL RECORDS. [employer] [facility]. provides no warranty or guarantee of the accuracy or completeness of information in this document.
[2024-01-22 10:38] LABS: Basophils Percent Auto 0.5 % (0.2-2.0); Eosinophils Absolute Auto 0.2 10^3/uL (0.0-0.7); Eosinophils Percent Auto 2.7 % (0.9-7.0); Hematocrit 46.5 % (42.0-54.0); Hemoglobin 15.1 g/dL (14.0-18.0); Immature Granulocytes Abs Auto 0.01 10^3/uL (0.00-0.03); Immature Granulocytes Pct Auto 0.2 % (0.0-0.5); Lymphocytes Absolute Auto 1.9 10^3/uL (1.2-3.8); Lymphocytes Percent Auto 30.8 % (20.5-60.0); Mean Corpuscular HGB Conc 32.5 g/dL (29.9-35.2); Mean Corpuscular Volume 86.3 fL (80.0-94.0); Mean Platelet Volume 10.5 fL (9.5-13.5); Monocytes Absolute Auto 0.5 10^3/uL (0.3-0.8); Monocytes Percent Auto 7.9 % (1.7-12.0); Neutrophils Absolute Auto 3.6 10^3/uL (1.4-6.5); Neutrophils Percent Auto 57.9 % (43.0-75.0); Platelet Count 239 10^3/uL (150-450); Red Blood Count 5.39 10^6/uL (4.70-6.10); Red Cell Distribution Width 13.9 % (11.0-15.0); White Blood Count 6.2 10^3/uL (4.0-11.0)
[2024-01-22 11:16] LABS: Alanine Aminotransferase 39 U/L (16-63); Albumin Level 3.7 g/dL (3.4-5.0); Alkaline Phosphatase 58 U/L (46-116); Aspartate Amino Transferase 28 U/L (15-37); BUN Creatinine Ratio 9.7; Bilirubin Total 0.4 mg/dL (0.2-1.0); Calcium 8.7 mg/dL (8.5-10.1); Chloride 103 mmol/L (98-107); Estimated GFR (African America >60 (>=60); Estimated GFR (Non-African Ame >60 (>=60); Free T3 3.41 pg/mL (2.18-3.98); Globulin 3.6 g/dL; Glucose 98 mg/dL (74-106); Sodium 139 mmol/L (136-145); Thyroid Stimulating Hormone 1.379 uIU/mL (0.358-3.740); Total Protein 7.3 g/dL (6.4-8.2)
[2024-01-22 11:41] LABS: Free T4 0.78 ng/dL (0.76-1.46)
[2024-01-22 12:19] LABS: Estimated Average Glucose 111 mg/dL; Glycohemoglobin A1C 5.5 % (4.5-6.2)
== END 2024-01-22 10:08 | disposition home or self-care (01) ==
LOC: LAB 10:09
PROVIDERS: PCP Family Medicine; Visit Provider Family Medicine
DX: Z00.00 Encounter for general adult medical examination without abnormal findings (principal)
CPT/HCPCS: 36415; 80053; 83036; 84439; 84443; 84481; 85025

== ENCOUNTER 2024-02-12 16:16 | Outpatient (OUT) | payer OTHER, SELFPAY ==
[2024-02-14 03:07] LABS: Testosterone 385 ng/dL (264-916)
== END 2024-02-12 16:17 | disposition home or self-care (01) ==
LOC: LAB 16:18
PROVIDERS: PCP Family Medicine; Visit Provider Family Medicine
DX: E29.1 Testicular hypofunction (principal)
CPT/HCPCS: 36415; 84403

== ENCOUNTER 2024-05-23 12:05 | Outpatient (OUT) | payer OTHER, SELFPAY ==
--- OUTSIDE RECORDS SUMMARY | 2024-05-23 12:10 | XMS_ITS | CCD ---
Author Organization [facility] Care Team Providers Care Sponge Diver Name Role Phone LASHAY, DR MERRITT Admitting [...] 11-21-2021 Episodic Other aftercare (1 source) Other fdc (current) drug therapy; Translations: [OTH WIRE LATHER CURRENT DRUG THERAPY] Onset: 04-06-2022 Episodic Other [...] 04-05-2022 % Free PSA 44.0 % Normal [facility] Comment on above: Result Comment: The [...] of men. Performed By: #### P SAFREE ####[facility] [address] [place], [place] [address]Pm. Eryn Issa Prostate specific Ag [Mass/Vol] 0.5 ng/mL Normal 0.0-4.0 [facility] Comment on above: Result Comment: Bárbara MCGINNIS methodology. . According to the [employer] [employer], Serum PSA should decrease and [...] malignant disease. Performed By: #### P SAFREE ####[facility] [address] [place] [address]DrFeliciano Parsons PSA, Free 0.22 ng/mL Normal N/A [facility] Comment on above: Result Comment: Bárbara snider ECLIA methodology. Performed By: #### P SAFREE ####[facility] [address] [place] [address]Dr. Eryn Parsons BILIRUBIN CONJUGATED (DIRECT )on 04-04-2022 BILI, CONJUGATED 0.1 mg/dL Normal 0.0-0.2 [facility] Comment on above: Performed By: #### D BEBE, LIPID, FT3, TSH, T4, CMP #### [facility] [address] [address] [address] Eryn Parsons CBC AUTO DIFFon 04-04-2022 BASO # 0.0 103/ul Normal 0.0-0.1 [facility] Comment on above: Performed By: #### C BC ####[facility] [address] [place] [address]Dr. Eryn Parsons Basophils/100 WBC (Bld) 0.4 % Normal 0.2-2.0 [facility] Comment on above: Performed By: #### C BC ####[facility] [address] [place] [address]DrFeliciano Parsons EO # 0.1 103/ul Normal 0.0-0.7 [facility] Comment on above: Performed By: #### C BC ####[facility] [address] [place] [address]DrFeliciano Parsons Eosinophils/100 WBC (Bld) 1.4 % Normal 0.9-7.0 [facility] Comment on above: Performed By: #### C BC ####[facility] [address] [place] [address]Dr. Eryn Parsons Erythrocyte distribution width (RBC) [Ratio] 13.2 % Normal 11.0-15.0 [facility] Comment on above: Performed By: #### C BC ####[facility] [address] [place] [address]DrFeliciano Eryn Parsons Hematocrit (Bld) [Volume fraction] 46.1 % Normal 42.0-54.0 [facility] Comment on above: Performed By: #### C BC ####[facility] [address] [place] [address]DrFeliciano Eryn Parsons Hemoglobin (Bld) [Mass/Vol] 15.2 g/dL Normal 14.0-18.0 [facility] Comment on above: Performed By: #### C BC ####[facility] [address] [place], [place] [address]DrFeliciano Eryn Parsons IG # 0.03 10e3/ul Normal 0.00-0.03 [facility] Comment on above: Performed By: #### C BC ####[facility] [address] [place], [place] [address]DrFeliciano Rosamariamarily Parsons IG % 0.4 % Normal 0.0-0.5 [facility] Comment on above: Performed By: #### C BC ####[facility] [address] [place], [place] [address]DrFeliciano Eryn Issa LYMPH # 2.4 103/ul Normal 1.2-3.8 [facility] Comment on above: Performed By: #### C BC ####[facility] [address] [place], [place] [address]DrFeliciano Rosamariamarily Parsons Lymphocytes/100 WBC (Bld) 31.8 % Normal 20.5-60.0 [facility] Comment on above: Performed By: #### C BC ####[facility] [address] [place], [place] [address]DrFeliciano Rosamariamarily Parsons MANUAL DIFF REQ NO Normal [facility] Comment on above: Performed By: #### C BC ####[facility] [address] [place], [place] [address]DrFeliciano Rosamariamarily Parsons MCH (RBC) [Entitic mass] 28.6 pg Normal 25.9-34.0 [facility] Comment on above: Performed By: #### C BC ####[facility] [address] [place] [address]Dr. Rosamariamarily Parsons MCHC (RBC) [Mass/Vol] 33.0 g/dL Normal 29.9-35.2 [facility] Comment on above: Performed By: #### C BC ####[facility] [address] [place] [id number]. Eryn Parsons MCV (RBC) [Entitic vol] 86.8 fL Normal 80.0-94.0 [facility] Comment on above: Performed By: #### C BC ####[facility] [address] [place], [place] [address]Dr. Eryn Parsons MONO # 0.6 103/ul Normal 0.3-0.8 [facility] Comment on above: Performed By: #### C BC ####[facility] [address] [place], [place] [address]Dr. Eryn Parsons Monocytes/100 WBC (Bld) 7.2 % Normal 1.7-12.0 [facility] Comment on above: Performed By: #### C BC ####[facility] [address] [place], [place] [address]Dr. Eryn Parsons NEUT # 4.5 103/ul Normal 1.4-6.5 [facility] Comment on above: Performed By: #### C BC ####[facility] [address] [place], [place] [address]Dr. Eryn Parsons Neutrophils/100 WBC (Bld) 58.8 % Normal 43.0-75.0 [facility] Comment on above: Performed By: #### C BC ####[facility] [address] [place], [place] [address]Dr. Eryn Parsons Platelet mean volume (Bld) [Entitic vol] 10.1 fL Normal 9.5-13.5 [facility] Comment on above: Performed By: #### C BC ####[facility] [address] [place], [place] [address]Dr. Eryn Parsons PLT 258 103/ul Normal 150-450 [facility] Comment on above: Performed By: #### C BC ####[facility] [address] [place] [id number] Parsons RBC 5.31 106/ul Normal 4.70-6.10 [facility] Comment on above: Performed By: #### C BC ####[facility] [address] [place] [id number] Parsons WBC 7.6 103/ul Normal 4.0-11.0 [facility] Comment on above: Performed By: #### C BC ####[facility] [address] [place] [id number] Parsons FREE T3on 04-04-2022 FREE T3 2.69 pg/mlL Normal 2.18-3.98 [facility] Comment on above: Performed By: #### D BEBE, LIPID, FT3, TSH, T4, CMP #### [facility] [address] [address] [address] Eryn Parsons GLYCOHEMOGLOBIN A1Con 2021 ADA RECOMMENDATION SEE BELOW Normal [facility] Comment on above: Result Comment: ADA RECOMMENDED LIMIT 4.0 - 6.0 ADA THERAPEUTIC TARGET < 7.0 ACTION SUGGESTED > 7.0 Performed By: #### A 1C ####[facility] [address] [place] [address]DrFeliciano Parsons Glucose [Mass/Vol] 117 mg/dL Normal [facility] Comment on above: Performed By: #### A 1C ####[facility] [address] [place] [address]DrFeliciano Parsons HbA1c (Bld) [Mass fraction] 5.7 % Normal 4.5-6.2 [facility] Comment on above: Performed By: #### A 1C ####[facility] [address] [place] [address]Dr. Eryn Parsons LIPID PROFILEon 04-04-2022 CHOL-HDL RATIO NORM SEE BELOW Normal [facility] Comment on above: Result Comment: 3.3 - 4.4 LOW RISK 4.4 - 7.1 AVERAGE RISK 7.1 - 11.0 MODERATE RISK >11.0 HIGH RISK Performed By: #### D BEBE, LIPID, FT3, TSH, T4, CMP #### [facility] [address] [address] [address] Eryn Parsons Cholesterol [Mass/Vol] 212 mg/dL Critically high <=200 [facility] Comment on above: Performed By: #### D BEBE, LIPID, FT3, TSH, T4, CMP #### [facility] [address] [place] [address] Dr. Eryn Parsons Cholesterol in HDL [Mass/Vol] 45 mg/dL Normal 40-60 [facility] Comment on above: Performed By: #### D BEBE, LIPID, FT3, TSH, T4, CMP #### [facility] [address] [place] [address] Dr. Eryn Parsons Cholesterol in LDL [Mass/Vol] 128.2 mg/dL Normal [facility] Comment on above: Performed By: #### D BEBE, LIPID, FT3, TSH, T4, CMP #### [facility] [address] [place] [address] Dr. Eryn Parsons Cholesterol.total/ Cholesterol in HDL [Mass ratio] 4.7 {ratio} Normal [facility] Comment on above: Performed By: #### D BEBE, LIPID, FT3, TSH, T4, CMP #### [facility] [address] [place] [address] Dr. Eryn Parsons HDL NORMAL > or = 60 mg/dl - LO W CARDIOVASCULAR RISK <40 mg/dl - HIGH CARDIOVASCULAR RISK Normal [facility] Comment on above: Performed By: #### D BEBE, LIPID, FT3, TSH, T4, CMP #### [facility] [address] [place] [address] Dr. Eryn Parsons LDL CALC NORMAL SEE BELOW Normal [facility] Comment on above: Result Comment: <100 mg/dl OPTIMAL 100 - 129 mg/dl NEAR OR ABOVE OPTIMAL 130 - 159 mg/dl BORDERLINE HIGH 160 - 189 mg/dl HIGH >190 mg/dl VERY HIGH Performed By: #### D BEBE, LIPID, FT3, TSH, T4, CMP #### [facility] [address] [place] [address] Dr. Eryn Parsons Triglyceride [Mass/Vol] 194 mg/dL Critically high <=150 [facility] Comment on above: Performed By: #### D BEBE, LIPID, FT3, TSH, T4, CMP #### [facility] [address] [address] [address] Eryn Parsons VLDL CALC 38.8 mg/dL Normal [facility] Comment on above: Performed By: #### D BEBE, LIPID, FT3, TSH, T4, CMP #### [facility] [address] [address] [address] Eryn Parsons OCC BLD IMMUNO SCREENon 03-22 OCCULT BLOOD Negative Normal NEGATIVE [facility] Comment on above: Performed By: #### O BSCRN #### [facility] [address] [address] [address] Eryn Parsons PROF 14(COMP METB)on 022 Albumin [Mass/Vol] 4.1 g/dL Normal 3.4-5.0 [facility] Comment on above: Performed By: #### D BEBE, LIPID, FT3, TSH, T4, CMP #### [facility] [address] [address] [address] Eryn Parsons Albumin/Globulin [Mass ratio] 1.2 {ratio} Normal [facility] Comment on above: Performed By: #### D BEBE, LIPID, FT3, TSH, T4, CMP #### [facility] [address] [address] [address] Eryn Parsons ALP [Catalytic activity/Vol] 81 U/L Normal 46-116 [facility] Comment on above: Performed By: #### D BEBE, LIPID, FT3, TSH, T4, CMP #### [facility] [address] [address] [address] Eryn Parsons ALT [Catalytic activity/Vol] 64 U/L Critically high 16-63 [facility] Comment on above: Performed By: #### D BEBE, LIPID, FT3, TSH, T4, CMP #### [facility] [address] [address] [address] Eryn Parsons Anion gap [Moles/Vol] 12.2 mmol/L Normal [facility] Comment on above: Performed By: #### D BEBE, LIPID, FT3, TSH, T4, CMP #### [facility] [address] [place] [address] Dr. Eryn Parsons AST [Catalytic activity/Vol] 25 U/L Normal 15-37 [facility] Comment on above: Performed By: #### D BEBE, LIPID, FT3, TSH, T4, CMP #### [facility] [address] [place] [address] Dr. Eryn Parsons Bilirubin [Mass/Vol] 0.4 mg/dL Normal 0.2-1.0 [facility] Comment on above: Performed By: #### D BEBE, LIPID, FT3, TSH, T4, CMP #### [facility] [address] [place] [address] Dr. Eryn Parsons Calcium [Mass/Vol] 9.2 mg/dL Normal 8.5-10.1 [facility] Comment on above: Performed By: #### D BEBE, LIPID, FT3, TSH, T4, CMP #### [facility] [address] [place] [address] Dr. Eryn Parsons Chloride [Moles/Vol] 103 mmol/L Normal 98-107 [facility] Comment on above: Performed By: #### D BEBE, LIPID, FT3, TSH, T4, CMP #### [facility] [address] [place] [address] Dr. Eryn Parsons CO2 [Moles/Vol] 28.7 mmol/L Normal 21.0-32.0 [facility] Comment on above: Performed By: #### D BEBE, LIPID, FT3, TSH, T4, CMP #### [facility] [address] [place] [address] Dr. Eryn Parsons Creatinine [Mass/Vol] 1.00 mg/dL Normal 0.70-1.30 [facility] Comment on above: Performed By: #### D BEBE, LIPID, FT3, TSH, T4, CMP #### [facility] [address] [place] [address] Dr. Eryn Parsons EGFR-AF YEMENI >60 Normal >=60 [facility] Comment on above: Performed By: #### D BEBE, LIPID, FT3, TSH, T4, CMP #### [facility] [address] [place] [address] Dr. Eryn Parsons EGFR-NON AF YEMENI >60 Normal >=60 [facility] Comment on above: Performed By: #### D BEBE, LIPID, FT3, TSH, T4, CMP #### [facility] [address] [address] [address] Eryn Parsons Globulin (S) [Mass/Vol] 3.5 g/dL Normal [facility] Comment on above: Performed By: #### D BEBE, LIPID, FT3, TSH, T4, CMP #### [facility] [address] [place] [address] Dr. Eryn Parsons Glucose [Mass/Vol] 97 mg/dL Normal 74-106 [facility] Comment on above: Performed By: #### D BEBE, LIPID, FT3, TSH, T4, CMP #### [facility] [address] [place] [address] Dr. Eryn Parsons Potassium [Moles/Vol] 3.9 mmol/L Normal 3.5-5.1 [facility] Comment on above: Performed By: #### D BEBE, LIPID, FT3, TSH, T4, CMP #### [facility] [address] [place] [address] Dr. Eryn Parsons Protein [Mass/Vol] 7.6 g/dL Normal 6.4-8.2 [facility] Comment on above: Performed By: #### D BEBE, LIPID, FT3, TSH, T4, CMP #### [facility] [address] [address] [address] Eryn Parsons Sodium [Moles/Vol] 140 mmol/L Normal 136-145 [facility] Comment on above: Performed By: #### D BEBE, LIPID, FT3, TSH, T4, CMP #### [facility] [address] [place] [address] Dr. Eryn Parsons Urea nitrogen [Mass/Vol] 14.0 mg/dL Normal 7.0-18.0 [facility] Comment on above: Performed By: #### D BEBE, LIPID, FT3, TSH, T4, CMP #### [facility] [address] [place] [address] Dr. Eryn Parsons Urea nitrogen/Creatinin e [Mass ratio] 14.0 mg/mg Normal [facility] Comment on above: Performed By: #### D BEBE, LIPID, FT3, TSH, T4, CMP #### [facility] [address] [place] [address] Dr. Eryn Parsons T4on 04-04-2022 T4 [Mass/Vol] 7.40 ug/dL Normal 4.50-12.10 [facility] Comment on above: Performed By: #### D BEBE, LIPID, FT3, TSH, T4, CMP #### [facility] [address] [place] [address] Dr. Eryn Parsons TSHon 04-04-2022 TSH 2.794 uIU/mL Normal 0.358-3.740 [facility] Comment on above: Performed By: #### D BEBE, LIPID, FT3, TSH, T4, CMP #### [facility] [address] [place] [address] Dr. Eryn Parsons TSH RANGE SEE BELOW Normal [facility] Comment on above: Result Comment: <0.3 4 UIU/ml HYPERTHYROID 0.34-5.60 UIU/ml EUTHYROID >5.60 UIU/ml HYPOTHYROID Performed By: #### D BEBE, LIPID, FT3, TSH, T4, CMP #### [facility] [address] [place] [address] Dr. Eryn Parsons ED Noteon 02-16-2022 ED Note-Physician Basic Information Time Seen: Carrie Pat PA-C 10/24/2021 12:08 Chief Complaint chest pain started last night around 6pm with L arm numbness/tingling since 0630 this morning. denies SOB. c/o [employer] cough with headache. denies N/V/D. History of [...] family history of both CAD, HTN and CA. Review of Systems ROS: Constitutional: Denies fever, [...] Stop d (more content not included)... Normal [facility] Comment on above: Result Comment: Elec [...] for. acid reflux High Cholesterol HTN Normal [facility] General Surgery Office/Clini c Noteon 12-27-2021 [...] PILO Only if needed [address] [place] [address]- Additional Instructions: Problem List/Past Medical History Ongoing [...] influenza virus vaccine, inactivated 08/2021 Recorded Normal [facility] Comment on above: Result Comment: Elec tronically Signed By: CATALINA JACKMAN, Vijaya Cronin\.br\Date and Time Signed: 12/27/21 15:53 EST Pathology Noteon 12-20-2021 Pathology Note [id number]#[id number]:127 Normal [facility] Operative Reporton Operative Report [id number]#[id number]:127 Normal [facility] Consent for Procedure/Surger yon 11-30-2021 Consent for Procedure/Surgery [id number]#[id number]:127 Normal [facility] Ambulatory Visit Summaryon 0 11-29-2021 Ambulatory [...] for. acid reflux High Cholesterol HTN Normal [facility] ECHOCARDIO M/2D COMPLETEon 0 11-21-2021 ECHOCARDIO M/2D COMPLETE Patient: FRANK LUO Exam Date: 11/21/2021 : 1975 Gender:M Ordering : DR SHAINA NORMAN . Admission #: [id number] Family : Order #: [id number] CLICK HERE TO VIEW EXAM ECHOCARDIOGRAM REPORT [...] Area(A4C): 17.20 cm2 Left Atrium Systolic Volume(A2C): 07447 mm3 Left Atrium Systolic Volume(A4C): 18767 mm3 Mitral Valve MV E to A [...] Wilcox M.D. on 11/21/2021 at 15:51 Normal [facility] Physician Referralon 022 Physician Referral [id number]#[id number]:127 Normal [facility] Coding Summary.on 11-01-2021 Coding Summary. CD:[id number] Gh0bWw+PG hlYWQ+CE0IUKHsT59tyMLkeV8TG3v HFE4MLGTPRQIQEC8LOG7nbWE3AKud G3QknaMk NrrptWQmTL41UWp9QCE3eVniFZtvn X1knHNqW7a4RiPbKL74gC71IIigAS DhJfN6GhHuyznleXGu W5kaWxYpzZGxGpb+PHRhYmxlIHdpZ RQgVNilNMRtOvQymLcuIC7bRo7zUE VyLWNvbGxhcHNlOiBj w8nuGKUyPIijDX9rdSktB5NntOK3H BFod9p0Pg38qNB+MQPxZXH8zLozPM giy955YyKwt6tbHBI0 iJZcFNjsFDN1Z32jc4S5ZGUkSUNfG PT7lRW6jG5qeZpetjmqN4UyjNDmCj J6YOU6yDGmhR2qnGeo beiokU3jZtm+U85JWS0CDDKOSI7RT am8A9UpWjqqpBS+UF89JQJyDP34fS EikUObb9jseLg9FeXb LBBtWFL1kJlbPJcqk9CjMXCwA05zu RUrd0M7AVLpxLbrcWPfOpBwrMV0nE 0aIIvcylhbd3adosjw Tkrxa7xrae13nQ83C79tAOirEGDbE EF5NXFvNIQwxNcrdr0xfC6lVt0+ID nnn7afc9kbqDl2NrOn POGeckHfvFlbDFH7h9UbOy17B7Aol Xtxd2DkZmb2dr29iZOqk5L7kOE0YI blSIXttP1iUGatDhM2 XOIhKwUtjJ68rFIpHBiuVa4ypQhct QdcHE2nLPOfdutoGVVplP1kWNGwbH XapGsnYJ1gAPMbbmkm y518NnEkJOV0QDZlgSFlO4EtrF3lS rSuJYMvZRXnF7LauCTwFHipF783CL kfEaO5CBCebwWmW6Lc DYLxjOsrBhH4h3Q1Bt5Zo9UdzzsrX QR2YBfmTCIpMwYfHgPsYkW4C4WwRv f1KLXmuDdqRW3wB7Nl WIVwabfslbnopEG6SGByFDZlaG09t RItMEpcEg0lw6P7s473CLHfQFSyyJ 12Sk8lbAzhAAHwkYVD uD3geycji7ekigbzMcCrRXEnOHl1E Ke7TKTcfChoOxEeMAC8LnL4DVZ7cD XkiA5rtOfvfchphK1r Oyc+A94cgN0pJYJ5KCW4pkoyXDUry wCoOE15EQ92C8GaIskayXZxzKP+PG OeurLhgStsWP6lDaRq i3fxs2FfOFpmG0SwIKZwTBbdLvg2Y NLxHQV2xWI4wR3bGKJgYUiib1M5tI W0B8BlmsCglz8ap4fr PTGaFMxjG87siUPnt5L3AYTswEO1Q FQfpPfhIbVwyN40Fls+PGNvbGdyb3 BzScmls4oue9mmdLd3 DpWoSQObvlHluPpsDOD0u6LpSo57D 29sIHdpZHRoPSIxNSUiIHZhbGlnbj 6gqM0cKb8+PGNvbCB3 zYV0iB3rUFJuRqZ7SYfmK964IoMgg JFbUocvi6uzf8ymoKp1RoKvXOFygi PtyTbrCED8k5OyBy87 V12cORptKDOiICZdMTUdFVReoKzam j9qiS4jXu0+RN7dj4jtei50fK52cW I+LWXdPRB0bJneDLpk RLAvoF3uWQxsIcZ9SUXpQaFzfI72p KMjBFegMm5bqOusoKyfOK5cIHVueg lcd138PjVzg5vvQGHb pYSeAUrcARN7S09xt0V6DYQvQWEpP JA1yRS4rM3fkNrapnwewMHvbPssyv HlkOkjSKbxYRlkS918 IXAtnQhtDwErnIhblrCjUsSpTMp9B 8CjQay1OIMfoJfcGX9ipINrCJwoHh 0leKcfyUbwLR8jLSVi lpldd717WcKzr5xmZNLlxZMvFQijS LK6D57ko4V2CTKyGPMeQPI0cRR6hE 1hbGlnbjogbGVmdDsg iuBhpAbpMDpcQWzmU562XPWysKfeO kRxyhLdEROmdPW3RS40DU78yIXcq9 C6iYY3I2PoVLLcingu iusoqAE9XQTaHUOirI44Fj3dbWiuG c4sDGUxDLF1GUMaxUEwY5ZoyN1gIr YoPBLhONVgY0FifTAj ZAjpT165VThuAzA6SNEfsyXmK8EuK ZJkeVujKbA8v9R7Kd1AC6F1FK51KH 53aYSxl9H7qVR4T8Uc MMIfipuggivodYE7RKSqYHRubF62I w3ikDvcQa7bHCWzIIG6YTJygAFwR0 HotS2aPpGgBFLbWOIz A8NxuBQbAAcyJ484IYvfNzP0FCLey wVkV8VrSJVjdKutCoC3b7U3Oj8QCA z8IY26HV06iSIel9F2 pHH9D7YyVRNxwcnewvcfxRS2DBByP AXbaE53Kg2lvHdxTw2iGFIgDZT2NS YjeVZqL7XdqN0gJuGw GKJkHQToV5QmsGJgJHctG321JGtyB eE9TJGcnbViW4BtFHMgkNjxDmB2f3 G1Kx2TEYNlLN64RKJ1 zHG8TO02AX42L4DjEbtusOYylLM+P HRhYmxlIHdpZHRoPScxMDAlJyBzdH zqXQ6iSh0kPYSfPVOa fAwbcWZbGhLyq9bdSHTyCSziII4xn ZwuJ2IlbYW8TGGaf5g9Qq44T17dV3 JvdXA+KSLvjFJ9lMU0 gV6yJiFaLmK8EUdzW038NjMzzCJdO xbqq1rky8ijiGm3SjN7YAZlcfCleY rfOTD8v8MwUz39H55p FRpwGWOqFXSaZOLdAWNydKwyjl1md G9wIi8+TUSyaIH4bEM9gJ7oSlVrSm I7THqzS555CrUnaSDu Oadyd4nsg5sgsCv4FdVqIDLfnlDui ZgcCEG4a4JhXz38B2MxzHeli6LmLg s5xs51yAOza1V1dGL6 K7NxFICdcwlzvSSykRzsVF5yRZVfx crhMOEfzT1zKKYtU0x0GvZeYkR6WX yqV5QbkxY5YBWykGQx EQirEEZ2T20kn5E1MGAeTSBzFPP4s AY5mY5ykGcrkkzctXUqdPgmvgEcgZ fcRLwlZYxrV990FIUr mRqhPEWhiD0vRDBecKXxgXrbQI1cY JQnojtsErCYVEUvCEVLIBVJYQC3Y1 TiPqy6WQGvrZjmXB3c gILoIAwyVc1mpDdtbQjmOI1jORYuq cluFEEtuT1sZXAkbZLhmAanFM5fZJ Llmdoaa034CxQsDPF8 WBBzcWTqA5NyzC5xNvTzMLAdDRSuZ 8XzdDVaKCwbT530DBgwUiC9IBLham SdM7OvZKOczOlxQdE1 d8B1Bp9iUd2eAR4gJRa1PF78FU15z QYrp1X6nNC9O1AoRSPohogbbybnzO L0YAPtWCNaqT46hVCi UBroFj0bl7K8y015HTTvOIDdrW48B s2zdNgfTZRlqDAUxC5xorhvl9dwnt fcVsQbQHAwRVi0BBh8 SIIycFnqHuYzTSV9PbQ8JZO2jGXuz C0vyQvfdfdhvD4lFrg+NDQgWWVhcn Y9W7VnVjg2DLVgpLrl EA2oyDYyOOniZy1xsMlrgQyxKI1iF QEhmtolDQAnpV9oUJKhtFCxyIixGN 4dJETxbvvhs697IkAr UIN2EXBqmWIiN6JmpQ2aIbWlUZQoB KBpV3YlzNFwEYbyI736FBtlRfR2SC QzruKiY6AnXDOhlIom OgD8y0V4In9PYHziKG28VS12qVVas 0A4cPJ2M7YcNQLhujuracitfVG5AX RwTMZaqW39wSXzUTia Ac6yq3G9i214UHUtFXMdxB58Iq3kh LsfDTRtbPBFsC8agsjeo6wetibhGv PuSKTbRSa6GYe1NGOi nGraIdWuOPM5TcB9XWD0dVXzoL9ah IemxxaxvD5rVre+FL2hmbcefxE8ZA 91HF00Y1AtWyienIGi bGU+PHRhYmxlIHdpZHRoPScxMDAlJ xRzvIjhOK7yOq6xLDZjQDHuvNcrtT MtFkUam7seIBVsECig KJ7xvZpyZ2GklGO5NFZho6c6Ae67Q 45rI9NwgBN+KGEmtLC9hLH1qD3oRa JnFpU2RLdsT990EiJf rKVuWbrpg9pld3fteFd6SrRvMGQao nNqfImxLXM1z2MxOe85V41aCLswEQ RoPSIyMCUiIHZhbGln tn0ruZ9xAa0+CZZbwVD0gST0aD0iI gWbVzK4DWijR220WvAciBSjMtvmP3 0nM0ZfbTR+PHRyPjx0 JVGalKabPQ4wjJHtZSawUc1tREI0X wHwVzQlZHifM9EePVJokfswmhbnoH M3UQKtFBSfwY86Nx4a xTvhVp2kVAXrHMO1LLBdoYIhK5Ssd R6mMcVwHZTsUKOyR0DpzVHjOGdrK4 11QTxdQxN3EVUhnfQe F6JwYBRlnWgdUiI7t2Z9Hu3IcAagp KZrYD3oBgElUQt5U6EyPkh8JGNqhM rgIV4niYEfTAxnUf8r cRwziVnhOA0tDKJqytypr774XsFda 1aqYOUgtPQoVIrzJDB9D50sb4N6ZH RyKLNvIUP2wRN9rU6o bGlnbjogbGVmdDsgdmVydGljYWwtY BvxB810XABfpFjqUkPNRvv3V5NlMx f4NVSeuKikJQ5qqNHm QMgkEl0lpZxasAfoMD5jBIGemawgr 642XuFyn1qqZXPhePHdXBjmZUX9P2 6gx9L2BSNxKQIpGJR9 mHX2cQ3chFmgtckpdTKtaChnqwHpu JlrZWdrYYtqW462VOVvvBjfUm6WFs o8X5UnMtp3IFUqyNxf MG2awCJlGUniAl0arBbdiIubVC0pZ JSvegddf031PdRat0grXCMeeLPaKP ieYRZ8R53dq4V9ZEJd KOBmVBC1sUQ6pI7xfAjuqgdunLJaa AzgopXqvInvFHyiPDmqS898QQVlpE snPlBheWVyOjwvdGQ+ JH18oo17P8UbMwgfCkf0ZUDzCEF2g JG5bR9yFOAySIzec1Z2wAT9I8Jpcs Vdej0tk2fuDQBfOOia Y29s (more content not included)... Normal [facility] NM STRESS/REST MULTIon 10-27 NM STRESS/REST MULTI Patient: FRANK LUO Exam Date: 10/27/2021 : 1975 Gender:M Ordering : DR SHAINA NORMAN . Admission #: [id number] Family : Order #: [id number] CLICK HERE TO VIEW EXAM RADIOLOGY REPORT [...] Aguero MD on 10/28/2021 at 09:51 Normal [facility] Discharge Instructionson Discharge Instructions [id number] Normal [facility] ED Noteon 10-25-2021 ED Note Basic Information Time Seen: Carrie Pat PA-C 10/24/2021 12:08 Chief Complaint chest pain started last night around 6pm with L arm numbness/tingling since 0630 this morning. denies SOB. c/o [employer] cough with headache. denies N/V/D. History of [...] family history of both CAD, HTN and CA. Review of Systems ROS: Constitutional: Denies fever, [...] Stop d (more content not included)... Normal [facility] Auto Diffon 10-24-2021 Basophils/100 WBC (Bld) 0.3 % Normal 0.0-2.0 [facility] Comment on above: Order Comment: Order Added by Discern Expert. Performed By: #### 1 7394734, 4510602, 0714671, 14017907, 3095426, 7741120, 9244160, 83616982 ####[facility] [address] [place] [address] Basophils/Leukocyt es Auto (Bld) [Pure # fraction] 0.0 E9/L Normal 0.0-0.2 [facility] Comment on above: Order Comment: Order Added by Discern Expert. Performed By: #### 1 7927208, 3485162, 5641761, 85814750, 9890663, 2830005, 5101455, 26738943 ####[facility] [address] [place] [address] Eosinophils/100 WBC (Bld) 0.6 % Normal 0.0-8.0 [facility] Comment on above: Order Comment: Order Added by Discern Expert. Performed By: #### 1 6018249, 1864991, 5626250, 91096259, 7977727, 6690047, 5278548, 49265651 ####[address] [place] [address] Eosinophils/Leukoc ytes Auto (Bld) [Pure # fraction] 0.0 E9/L Normal 0.0-0.5 [facility] Comment on above: Order Comment: Order Added by Discern Expert. Performed By: #### 1 9714305, 0126100, 5555267, 55854653, 0692435, 5935491, 0989501, 30321522 ####[address] [place] [address] Lymphocytes/100 WBC (Bld) 24.8 % Normal 14.0-50.0 [facility] Comment on above: Order Comment: Order Added by Discern Expert. Performed By: #### 1 2791906, 4773140, 1104852, 75534945, 3472275, 3649619, 2317153, 11576599 ####[address] [place] [address] Lymphocytes/Leukoc ytes Auto (Bld) [Pure # fraction] 1.8 E9/L Normal 1.0-4.0 [facility] Comment on above: Order Comment: Order Added by Discern Expert. Performed By: #### 1 5011334, 2833984, 0404212, 45246789, 6301410, 2090525, 8636493, 55515324 ####[address] [place] [address] Monocytes/100 WBC (Bld) 5.4 % Normal 4.0-14.0 [facility] Comment on above: Order Comment: Order Added by Maricarmen Expert. Performed By: #### 1 2949406, 3480623, 3777399, 05433533, 4463686, 3145523, 3050976, 04143360 ####[address] [address] Monocytes/Leukocyt es Auto (Bld) [Pure # fraction] 0.4 E9/L Normal 0.2-1.0 [facility] Comment on above: Order Comment: Order Added by Maricarmen Expert. Performed By: #### 1 1426948, 1476266, 0213991, 38397076, 6416602, 2402027, 5111278, 04416062 ####[address] [place] [address] Neutrophils/100 WBC (Bld) 68.9 % Normal 36.0-75.0 [facility] Comment on above: Order Comment: Order Added by Maricarmen Expert. Performed By: #### 1 0080674, 2009801, 7553429, 35519155, 6144234, 8661963, 9654396, 84078136 ####[address] [address] Neutrophils/Leukoc ytes Auto (Bld) [Pure # fraction] 5.0 E9/L Normal 2.0-7.5 [facility] Comment on above: Order Comment: Order Added by Discern Expert. Performed By: #### 1 6590449, 6163788, 3575379, 87088733, 7590630, 0034161, 7483401, 79429411 ####[facility] [address] [place] [address] BMPon 10-24-2021 Creatinine [Mass/Vol] 0.9 mg/dL Normal 0.5-1.3 [facility] Comment on above: Performed By: #### 1 6606026, 8671951, 8171555, 56240044, 1096999, 3297705, 4469750, 87912865 ####[facility] [address] [place] [address] Urea nitrogen [Mass/Vol] 13 mg/dL Normal 5-21 [facility] Comment on above: Performed By: #### 1 6455442, 4351786, 8433571, 13365022, 3821379, 0258818, 3442815, 69844701 ####[facility] [address] [place] [address] Urea nitrogen/Creatinin e [Mass ratio] 14 No Units Normal 10-20 [facility] Comment on above: Performed By: #### 1 5948763, 1308425, 9618520, 80661101, 6320761, 8723583, 3682724, 64858411 ####[facility] [address] [place] [address] Anion gap [Moles/Vol] 19 mmol/L High 6-16 [facility] Comment on above: Performed By: #### 1 3758465, 8621507, 2668891, 81504372, 6018765, 5433727, 0442815, 77263803 ####[facility] [address] [place] [address] Calcium [Mass/Vol] 9.4 mg/dL Normal 8.9-11.1 [facility] Comment on above: Performed By: #### 1 4099983, 4965513, 8055343, 74511202, 5993570, 0689267, 9054449, 12216072 ####[facility] [address] [place] [address] Chloride [Moles/Vol] 99 mmol/L Low 101-111 [facility] Comment on above: Performed By: #### 1 6190328, 6405129, 2823187, 75762642, 5800534, 5676818, 6968816, 51545857 ####[facility] [address] [place] [address] CO2 [Moles/Vol] 21 mmol/L Normal 21-31 [facility] Comment on above: Performed By: #### 1 7059596, 4745121, 1462535, 54985143, 3705772, 8394967, 1011251, 68490200 ####[facility] [address] [place] [address] Glucose [Mass/Vol] 101 mg/dL Normal 55-199 [facility] Comment on above: Result Comment: If t his glucose result represents a fasting glucose, interpretation should refer to the following reference range: 55-99 mg/dL Performed By: #### 1 1242578, 2108252, 5885490, 42992269, 8388197, 1332015, 5065174, 54394028 ####[facility] [address] [place] [address] Potassium [Moles/Vol] 3.9 mmol/L Normal 3.5-5.3 [facility] Comment on above: Performed By: #### 1 9781610, 1839419, 8108085, 84094881, 5080281, 2479590, 1502835, 83240638 ####[facility] [address] [place] [address] Sodium [Moles/Vol] 135 mmol/L Normal 135-145 [facility] Comment on above: Performed By: #### 1 2383397, 3958481, 3041031, 37616117, 5045855, 4264566, 8237145, 37450730 ####[address] [place] [address] CBC w/ Auto Diffon 2 Erythrocyte distribution width (RBC) [Ratio] 14.1 % Normal 10.9-14.2 [facility] Comment on above: Performed By: #### 1 1668138, 3614038, 2447468, 38613635, 3308848, 1188556, 6171991, 93929556 ####[address] [place] [address] Hematocrit (Bld) [Volume fraction] 44.7 % Normal 37.7-49.0 [facility] Comment on above: Performed By: #### 1 2506025, 8834426, 2422736, 72363961, 6588813, 6467605, 1936966, 91515092 ####[address] [place] [address] Hemoglobin (Bld) [Mass/Vol] 15.4 g/dL Normal 13.5-17.5 [facility] Comment on above: Performed By: #### 1 4890941, 8749037, 3430821, 78118740, 1581583, 1948694, 6281702, 45054422 ####[address] [place] [address] MCH (RBC) [Entitic mass] 29.1 pg Normal 27.0-34.0 [facility] Comment on above: Performed By: #### 1 2892754, 6896304, 5181500, 16688591, 2300391, 2424725, 5103709, 61644964 ####[address] [place] [address] MCHC (RBC) [Mass/Vol] 34.4 g/dL Normal 31.4-36.0 [facility] Comment on above: Performed By: #### 1 9685666, 0404317, 4341109, 87088695, 5858581, 5089762, 7253109, 84607052 ####[address] [place] [address] MCV (RBC) [Entitic vol] 84.7 fL Normal 80.0-100.0 [facility] Comment on above: Performed By: #### 1 2706998, 0908660, 1772890, 84147610, 1804414, 5034477, 6379486, 15896658 ####[address] [address] Platelet mean volume (Bld) [Entitic vol] 8.3 fL Normal 6.4-10.8 [facility] Comment on above: Performed By: #### 1 0737732, 1856900, 7529118, 83732249, 8959219, 5147681, 2410268, 66945943 ####[address] [address] Platelets (Bld) [#/Vol] 229.0 E9/L Normal 150.0-500.0 [facility] Comment on above: Performed By: #### 1 0194534, 0193814, 0440297, 51689197, 9463793, 4934253, 9896542, 59410736 ####[address] [address] RBC (Bld) [#/Vol] 5.3 E12/L Normal 4.3-5.9 [facility] Comment on above: Performed By: #### 1 2396854, 1929849, 2393597, 20363503, 9927468, 7039794, 3539288, 63713719 ####[address] [place] [address] WBC corrected for nucl RBC Auto (Bld) [#/Vol] 7.2 E9/L Normal 4.0-11.0 [facility] Comment on above: Performed By: #### 1 3798442, 6351043, 1281873, 03580364, 8385191, 0806722, 1808838, 41629634 ####[facility] [address] [place] [address] CT Head or Brain w/o Contras ton [...] (Electronic Signature): 10/24/2021 12:54 pm Signed by: Emli West M.D. Transcribed by: YUE Technologist: KASSY Normal [facility] Consent for Treatmenton Consent for Treatment [id number]:127 Normal [facility] D-Dimeron 10-24-2021 Fibrin D-dimer FEU (PPP) [Mass/Vol] <215 Low 215-500 [facility] Comment on above: Result Comment: This [...] infections Liver cirrhosis Performed By: #### 1 6403250, 4070726, 1413734, 88330947, 3261593, 7190402, 4807811, 24002804 ####[facility] [address] [place] [address] ED Clinical Summaryon 2021 ED Clinical Summary [address] [address] ED Clinical Summary Person Information Name: FRANK LUO [facility]idelina/[facility] Age: 46 Years : 1975 Sex: Male Language: Greek PCP: Shaina Norman MD Marital Status: Visit [...] 10/24/2021 17:43:57 10/24/2021 17:43:57 10/24/2021 17:43:57 ADDRESS: [address] [place] [phone] PHYS DOC NOTES: MEDICAL INFORMATION: Prescriptions Given: [...] every day. PATIENT EDUCATION INFORMATION: Instructions: Paresthesia, Jawr-se-Xyhg; Nonspecific Chest Pain, Adult, Eyiv-al-Sybf Follow up: With: Address: When: Stacy JACKMAN, Hernandez Castellon [address] [place] [address] In 3 days 10/27/2021 DIAGNOSIS: 1:Chest pain, unspecified; 2:Left arm numbness Normal [facility] ED Patient Education Noteon 10-24-2021 ED [...] these instructions at home: Medicines ? Take pxdh-oeq-bushzpt and prescription medicines only as told by [...] Eating a heart-healthy diet. A diet and preventive medicine specialist (dietitian) can help you to learn healthy [...] 03/26/2009 Document Revised: 04/10/2019 Document Reviewed: 04/10/2019 [employer] Patient Education ? 2020 [employer] Neurology Paresthesia Paresthesia is a burning [...] in y (more content not included)... Normal [facility] ED Patient Summaryon 022 ED Patient Summary (Inserted Image. Amisha ble to display) [address] [address] Patient Discharge Instructions Person Information Name: FRANK LUO Age: 46 Years Arrival Date: 10/24/2021 11:53:24 Discharge Diagnosis: 1:Chest pain, unspecified; 2:Left arm numbness Primary Care Physician: Shaina Norman MD Provider Information Primary Provider: Jac Doty DO [employer] Supervisor:Carrie Pat PA-C The exam and treatment you received in the Emergency Department were for an urgent problem and are not intended as complete care. It is important that you follow up with a doctor, nurse practitioner, or physician?s accounting administrative assistant for ongoing care. If your symptoms [...] With: Address: When: Stacy JACKMAN, Hernandez Castellon [address] [place] [address] In 3 days 10/27/2021 In the event that this physician does not participate in your insurance network, please consult with your insurance company to find a nearby participating provider. Patient Education Materials: Paresthesia, Fzyo-cs-Myqv; Nonspecific Chest Pain, Adult, Swym-lb-Sfuy A MESSAGE TO ALL PATIENTS REGARDING OPIOIDS PRESCRIPTION OPIOIDS: WHAT YOU NEED TO KNOW Prescription opioids can be used to help relieve harhctin-jx-bajudx pain and are often prescribed following a [...] be struggling with addiction, tell your health lawn care specialist and ask for guidance or call [facility]? (more content not included)... Normal [facility] Lipase Levelon 10-24-2021 Lipase [Catalytic activity/Vol] 28 U/L Normal 13-58 [facility] Comment on above: Performed By: #### 1 3342020, 5644876, 6643811, 31840081, 0254935, 3013898, 2027505, 57097333 ####[facility] [address] [place] [address] PT & PTTon 10-24-2021 aPTT Coag (PPP) [Time] 32.9 second(s) Normal 25.1-36.5 [facility] Comment on above: Result Comment: Hepa rin therapeutic range (represented by Anti-Factor Xa activity of 0.2 - 0.4 U/mL) corresponds to PTT of 56.6 - 109.0 sec. Performed By: #### 1 4802593, 6564479, 3408947, 53982301, 6300517, 0997392, 8566200, 39703540 ####[facility] [address] [place] [address] INR Coag (PPP) [Relative time] 1.1 {INR} Invalid Interpretation Code [facility] Comment on above: Result Comment: INR results are specifically intended to assess patients stabilized on long-term Anticoagulation therapy suggested INR?s ?Less Intensive Anticoagulation? 2.0 ? 3.0 Conventional Range 3.0 ? 4.5 Performed By: #### 1 8587705, 6107241, 5287550, 38425502, 4307338, 1187165, 4823574, 26192957 ####[facility] [address] [place] [address] PT Coag (PPP) [Time] 12.8 second(s) Normal 10.2-12.9 [facility] Comment on above: Performed By: #### 1 1250263, 0748059, 6304054, 56641099, 9480568, 2356199, 9667814, 81843155 ####[address] [place] [address] Troponin 0 Hr.on 10-24-2021 Troponin I.cardiac [Mass/Vol] ng/mL Low 15.90-38.40 [facility] Comment on above: Result Comment: The 95% CI (Confidence Interval) PPV (Positive Predictive Value) for myocardial infarction in females is 38 pg/mL, in males 51 pg/mL. The results should be used in conjunction with clinical conditions of myocardial infarction. (Access High Sensitivity Troponin I Instructions For Use, [employer], May 2018) Performed By: #### 1 7741797, 3436024, 2672468, 57437540, 6241191, 9429429, 1651474, 93469707 ####[facility] [address] [place] [address] Troponin 3 Hr.on 10-24-2021 Troponin I.cardiac [Mass/Vol] ng/mL Low 15.90-38.40 [facility] Comment on above: Result Comment: The 95% CI (Confidence Interval) PPV (Positive Predictive Value) for myocardial infarction in females is 38 pg/mL, in males 51 pg/mL. The results should be used in conjunction with clinical conditions of myocardial infarction. (Access High Sensitivity Troponin I Instructions For Use, [employer], May 2018) Performed By: #### 1 0232234 ####[address] [address] XR Chest Single Viewon 10-24 XR Chest [...] MD Transcribed by: YUE Technologist: JESSIE Griffith [facility] eGFRon 10-24-2021 GFR/1.73 sq M.predicted among blacks MDRD (S/P/Bld) [Vol rate/Area] mL/min/{1.73_m2} Normal >=59 [facility] Comment on above: Order Comment: Order added by Discern Expert. Result Comment: eGFR is race adjusted. AA=. Performed By: #### 1 5740420, 9249799, 2379061, 46041841, 5152654, 4446675, 7527980, 37763847 ####[facility] [address] [place] [address] GFR/1.73 sq M.predicted among non-blacks MDRD (S/P/Bld) [Vol rate/Area] mL/min/{1.73_m2} Normal >=59 [facility] Comment on above: Order Comment: Order added by Discern Expert. Result Comment: Harness Builder nadine kidney disease could be indicated at eGFR's of less than 60 mL/min/1.73m2. Kidney failure is indicated at less than 15 mL/min/1.73m2. Performed By: #### 1 3101264, 1865025, 8655171, 20989262, 3935587, 7171970, 6995539, 71155785 ####[facility] [address] [place] [address] [facility] April 07, 2021 Shaina Norman, [address] [place] [address] [place] [address] Re: FRANK LUO Date of : 1975 Thank you for your referral of Frank Luo who was seen on consultation for injury to right alvarado. I have enclosed my consultation notes for your review. I will be happy to follow Frank should his symptoms persist. Sincerely, Vijaya Molina MD General Surgery Normal [facility] Ambulatory Clinical Summaryo n 03-25-2021 Ambulatory Clinical Summary {[id number] [facility] Patient Educationon 03-25-20 21 Patient Education Physical [...] your health care provider or diet and preventive medicine specialist (dietitian). This may include: ? Eating fewer [...] weight augustin (more content not included)... Normal [facility] Physician Referralon 021 Physician Referral [id number]:127 Normal [facility] XR foot RT min 3V*on 021 XR foot RT min 3V* [facility] [place] [address] [place] [address] XRay Report Signed Patient: Frank Luo MR#: [id number] : 1975 Acct:[id number] Age/Sex: 45 / M ADM Date: 03/17/21 Loc: XDUC Room: Type: [facility] Attending Dr: Shelly Bellamy APRN, SOLO MUSICIAN-C Ordering Provider: Shelly Bellamy APRN Date of Service: 03/17/21 XR/XR foot RT min 3V*: RIGHT FOOT/ANKLE INJURY ([id number]) XR/XR ankle RT min 3V*: RIGHT FOOT/ANKLE [...] Bolaños Jr., M.D.03/17/2021 6:58 PM Dictation Location: [place] [address] Transcribed By: MARIA FERNANDA 03/17/211857 Dictated By: Brandon Bolaños Jr, MD 03/17/211853 Signed By: 03/17/211857 [facility] Encounters Encounter Date Encounter Type Care Provider Facility Start: 10-10-2022 End: 10-11-[address] SHAINA NORMAN Facility:[facility] Start: 10-03-2022 End: 10-04-[address] SHAINA NORMAN Facility:[facility] Start: 04-06-2022 Encounter for genera l adult medical examination without abnormal findings DR SHAINA NORMAN [facility] Start: 04-04-2022 End: 04-05-[address] [...] Facility:[facility] Payers Date Payer Category Payer Unknown [id number] 1975 Unknown [id number] 2..84 [id number] 1975 Unknown [id number] 2.16.84 [id number] 1975 Unknown [id number] 2.16.84 [id number] 1975 Unknown [id number] .16.84 [id number] 1975 Unknown [id number] 2.16.84 [id number] 1975 Unknown [id number] .16.84 [id number] 1957 Self-pay [id number] 1957 Unknown [id number] Clinical Note 12-14-2021 Note Date & Type [...] wound check. CC: Dr. Shaina Norman : [facility] Signed and Approved by: DR VIJAYA MOLINA . 12/20/2021 12:03:00 [facility] Clinical Note 11-29-2021 Note Date & [...] plan excisional biopsy under local anesthesia at [facility] for definitive diagnosis and treatment; informed consent [...] Status influenza virus vaccine, inactivated 08/2021 Recorded [facility] Comment on above: Result Comment: Eliza [...] Tobacco Use:. Never Smokeless Tobacco Use:., 03/25/2021 [facility] Comment on above: Result Comment: Elec [...] section and content) DATE CREATED AUTHOR 03/26/2021 [facility] DATE CREATED AUTHOR AUTHOR'S ORGANIZ ATION 02/19/2022 [facility] DATE CREATED AUTHOR AUTHOR'S ORGANIZ ATION 10/18/2022 [facility] FOR RECORDS PERTAINING TO PATIENTS WHO ARE [...] BE BASED ON THE PRIMARY CLINICAL RECORDS. [employer] [facility]. provides no warranty or guarantee of the accuracy or completeness of information in this document.
[2024-05-24 04:08] LABS: Testosterone 401 ng/dL (264-916)
== END 2024-05-23 12:06 | disposition home or self-care (01) ==
LOC: LAB 12:06
PROVIDERS: PCP Family Medicine; Visit Provider Family Medicine
DX: E29.1 Testicular hypofunction (principal)
CPT/HCPCS: 36415; 84403

== ENCOUNTER 2025-05-11 09:01 | Outpatient (OUT) | payer OTHER, SELFPAY ==
[2025-05-11 09:24] LABS: Hematocrit 47.6 % (42.0-54.0); Hemoglobin 16.0 g/dL (14.0-18.0); Immature Granulocytes Abs Auto 0.01 10^3/uL (0.00-0.03); Immature Granulocytes Pct Auto 0.2 % (0.0-0.5); Lymphocytes Absolute Auto 2.3 10^3/uL (1.2-3.8); Mean Corpuscular HGB Conc 33.6 g/dL (29.9-35.2); Mean Corpuscular Hemoglobin 29.2 pg (25.9-34.0); Mean Corpuscular Volume 86.9 fL (80.0-94.0); Platelet Count 214 10^3/uL (150-450); Red Blood Count 5.48 10^6/uL (4.70-6.10); White Blood Count 5.8 10^3/uL (4.0-11.0)
[2025-05-11 10:41] LABS: Alanine Aminotransferase 48 U/L (16-63); Albumin Globulin Ratio 1.1; Albumin Level 3.9 g/dL (3.4-5.0); Alkaline Phosphatase 63 U/L (46-116); Anion Gap 11.0; Aspartate Amino Transferase 32 U/L (15-37); Blood Urea Nitrogen 15.0 mg/dL (7.0-18.0); Calcium 9.1 mg/dL (8.5-10.1); Carbon Dioxide 32.0 mmol/L (21.0-32.0); Chloride 105 mmol/L (98-107); Cholesterol 185 mg/dL (<=200); Estimated GFR (African America >60 (>=60 mL/min/1.73m^2); Estimated GFR (Non-African Ame >60 (>=60 mL/min/1.73m^2); Free T3 3.11 pg/mL (2.18-3.98); Globulin 3.5 g/dL; Glucose 103 mg/dL (74-106); HDL Cholesterol 41 mg/dL (40-60); Potassium 4.0 mmol/L (3.5-5.1); Sodium 144 mmol/L (136-145); Thyroid Stimulating Hormone 2.744 uIU/mL (0.358-3.740); Total Protein 7.4 g/dL (6.4-8.2); Triglycerides 183 mg/dL (<=150); VLDL CHOLESTEROL 36.6 mg/dL
== END 2025-05-11 09:02 | disposition home or self-care (01) ==
LOC: LAB 09:02
PROVIDERS: PCP Family Medicine; Visit Provider Family Medicine
DX: Z00.00 Encounter for general adult medical examination without abnormal findings (principal)
CPT/HCPCS: 36415; 80053; 80061; 83036; 84402; 84403; 84436; 84443; 84481; 85025; G0103; G0328

== ENCOUNTER 2025-06-05 08:54 | Outpatient (OUT) | payer OTHER, SELFPAY ==
--- OUTSIDE RECORDS SUMMARY | 2025-06-05 09:01 | XMS_ITS | CCD ---
Author Organization [facility] Care Team Providers Care Career Technical Supervisor Name Role Phone LASHAY, DR MERRITT Admitting [...] 11-21-2021 Episodic Other aftercare (1 source) Other termite helper (current) drug therapy; Translations: [OTH [facility] CURRENT DRUG THERAPY] Onset: 04-06-2022 Episodic Other [...] 04-05-2022 % Free PSA 44.0 % Normal [facility] Comment on above: Result Comment: [...] of men. Performed By: #### P SAFREE ####[facility] [address] [place], [place] [address]Du. Eryn Issa Prostate specific Ag [Mass/Vol] 0.5 ng/mL Normal 0.0-4.0 [facility] Comment on above: Result Comment: Bárbara MCGINNIS methodology. . According to the [employer], Serum PSA should decrease and [...] malignant disease. Performed By: #### P SAFREE ####[facility] [address] [place] [address]DrFeliciano Parsons PSA, Free 0.22 ng/mL Normal N/A [facility] Comment on above: Result Comment: Bárbara snider ECLIA methodology. Performed By: #### P SAFREE ####[facility] [address] [place] [address]Dr. Eryn Parsons BILIRUBIN CONJUGATED (DIRECT )on 04-04-2022 BILI, CONJUGATED 0.1 mg/dL Normal 0.0-0.2 [facility] Comment on above: Performed By: #### D BEBE, LIPID, FT3, TSH, T4, CMP #### [facility] [address] [address] [address] Eryn Parsons CBC AUTO DIFFon 04-04-2022 BASO # 0.0 103/ul Normal 0.0-0.1 [facility] Comment on above: Performed By: #### C BC ####[facility] [address] [place] [address]Dr. Eryn Parsons Basophils/100 WBC (Bld) 0.4 % Normal 0.2-2.0 [facility] Comment on above: Performed By: #### C BC ####[facility] [address] [place] [address]DrFeliciano Parsons EO # 0.1 103/ul Normal 0.0-0.7 [facility] Comment on above: Performed By: #### C BC ####[facility] [address] [place] [address]DrFeliciano Parsons Eosinophils/100 WBC (Bld) 1.4 % Normal 0.9-7.0 [facility] Comment on above: Performed By: #### C BC ####[facility] [address] [place] [address]Dr. Eryn Parsons Erythrocyte distribution width (RBC) [Ratio] 13.2 % Normal 11.0-15.0 [facility] Comment on above: Performed By: #### C BC ####[facility] [address] [place] [address]DrFeliciano Eryn Parsons Hematocrit (Bld) [Volume fraction] 46.1 % Normal 42.0-54.0 [facility] Comment on above: Performed By: #### C BC ####[facility] [address] [place] [address]DrFeliciano Eryn Parsons Hemoglobin (Bld) [Mass/Vol] 15.2 g/dL Normal 14.0-18.0 [facility] Comment on above: Performed By: #### C BC ####[facility] [address] [place], [place] [address]DrFeliciano Eryn Parsons IG # 0.03 10e3/ul Normal 0.00-0.03 [facility] Comment on above: Performed By: #### C BC ####[facility] [address] [place], [place] [address]DrFeliciano Rosamariamarily Parsons IG % 0.4 % Normal 0.0-0.5 [facility] Comment on above: Performed By: #### C BC ####[facility] [address] [place], [place] [address]DrFeliciano Eryn Issa LYMPH # 2.4 103/ul Normal 1.2-3.8 [facility] Comment on above: Performed By: #### C BC ####[facility] [address] [place], [place] [address]DrFeliciano Rosamariamarily Parsons Lymphocytes/100 WBC (Bld) 31.8 % Normal 20.5-60.0 [facility] Comment on above: Performed By: #### C BC ####[facility] [address] [place], [place] [address]DrFeliciano Rosamariamarily Parsons MANUAL DIFF REQ NO Normal [facility] Comment on above: Performed By: #### C BC ####[facility] [address] [place], [place] [address]DrFeliciano Rosamariamarily Parsons MCH (RBC) [Entitic mass] 28.6 pg Normal 25.9-34.0 [facility] Comment on above: Performed By: #### C BC ####[facility] [address] [place] [address]Dr. Rosamariamarily Parsons MCHC (RBC) [Mass/Vol] 33.0 g/dL Normal 29.9-35.2 [facility] Comment on above: Performed By: #### C BC ####[facility] [address] [place] [id number]. Eryn Parsons MCV (RBC) [Entitic vol] 86.8 fL Normal 80.0-94.0 [facility] Comment on above: Performed By: #### C BC ####[facility] [address] [place], [place] [address]Dr. Eryn Parsons MONO # 0.6 103/ul Normal 0.3-0.8 [facility] Comment on above: Performed By: #### C BC ####[facility] [address] [place], [place] [address]Dr. Eryn Parsons Monocytes/100 WBC (Bld) 7.2 % Normal 1.7-12.0 [facility] Comment on above: Performed By: #### C BC ####[facility] [address] [place], [place] [address]Dr. Eryn Parsons NEUT # 4.5 103/ul Normal 1.4-6.5 [facility] Comment on above: Performed By: #### C BC ####[facility] [address] [place], [place] [address]Dr. Eryn Parsons Neutrophils/100 WBC (Bld) 58.8 % Normal 43.0-75.0 [facility] Comment on above: Performed By: #### C BC ####[facility] [address] [place], [place] [address]Dr. Eryn Parsons Platelet mean volume (Bld) [Entitic vol] 10.1 fL Normal 9.5-13.5 [facility] Comment on above: Performed By: #### C BC ####[facility] [address] [place], [place] [address]Dr. Eryn Parsons PLT 258 103/ul Normal 150-450 [facility] Comment on above: Performed By: #### C BC ####[facility] [address] [place] [id number] Parsons RBC 5.31 106/ul Normal 4.70-6.10 [facility] Comment on above: Performed By: #### C BC ####[facility] [address] [place] [id number] Parsons WBC 7.6 103/ul Normal 4.0-11.0 [facility] Comment on above: Performed By: #### C BC ####[facility] [address] [place] [id number] Parsons FREE T3on 04-04-2022 FREE T3 2.69 pg/mlL Normal 2.18-3.98 [facility] Comment on above: Performed By: #### D BEBE, LIPID, FT3, TSH, T4, CMP #### [facility] [address] [address] [address] Eryn Parsons GLYCOHEMOGLOBIN A1Con 2021 ADA RECOMMENDATION SEE BELOW Normal [facility] Comment on above: Result Comment: ADA RECOMMENDED LIMIT 4.0 - 6.0 ADA THERAPEUTIC TARGET < 7.0 ACTION SUGGESTED > 7.0 Performed By: #### A 1C ####[facility] [address] [place] [address]DrFeliciano Parsons Glucose [Mass/Vol] 117 mg/dL Normal [facility] Comment on above: Performed By: #### A 1C ####[facility] [address] [place] [address]DrFeliciano Parsnos HbA1c (Bld) [Mass fraction] 5.7 % Normal 4.5-6.2 [facility] Comment on above: Performed By: #### A 1C ####[facility] [address] [place] [address]Dr. Eryn Parsons LIPID PROFILEon 04-04-2022 CHOL-HDL RATIO NORM SEE BELOW Normal [facility] Comment on above: Result Comment: 3.3 - 4.4 LOW RISK 4.4 - 7.1 AVERAGE RISK 7.1 - 11.0 MODERATE RISK >11.0 HIGH RISK Performed By: #### D BEBE, LIPID, FT3, TSH, T4, CMP #### [facility] [address] [address] [address] Eryn Parsons Cholesterol [Mass/Vol] 212 mg/dL Critically high <=200 [facility] Comment on above: Performed By: #### D BEBE, LIPID, FT3, TSH, T4, CMP #### [facility] [address] [place] [address] Dr. Eryn Parsons Cholesterol in HDL [Mass/Vol] 45 mg/dL Normal 40-60 [facility] Comment on above: Performed By: #### D BEBE, LIPID, FT3, TSH, T4, CMP #### [facility] [address] [place] [address] Dr. Eryn Parsons Cholesterol in LDL [Mass/Vol] 128.2 mg/dL Normal [facility] Comment on above: Performed By: #### D BEBE, LIPID, FT3, TSH, T4, CMP #### [facility] [address] [place] [address] Dr. Eryn Parsons Cholesterol.total/ Cholesterol in HDL [Mass ratio] 4.7 {ratio} Normal [facility] Comment on above: Performed By: #### D BEBE, LIPID, FT3, TSH, T4, CMP #### [facility] [address] [place] [address] Dr. Eryn Parsons HDL NORMAL > or = 60 mg/dl - LO W CARDIOVASCULAR RISK <40 mg/dl - HIGH CARDIOVASCULAR RISK Normal [facility] Comment on above: Performed By: #### D BEBE, LIPID, FT3, TSH, T4, CMP #### [facility] [address] [place] [address] Dr. Eryn Parsons LDL CALC NORMAL SEE BELOW Normal [facility] Comment on above: Result Comment: <100 mg/dl OPTIMAL 100 - 129 mg/dl NEAR OR ABOVE OPTIMAL 130 - 159 mg/dl BORDERLINE HIGH 160 - 189 mg/dl HIGH >190 mg/dl VERY HIGH Performed By: #### D BEBE, LIPID, FT3, TSH, T4, CMP #### [facility] [address] [place] [address] Dr. Eryn Parsons Triglyceride [Mass/Vol] 194 mg/dL Critically high <=150 [facility] Comment on above: Performed By: #### D BEBE, LIPID, FT3, TSH, T4, CMP #### [facility] [address] [address] [address] Eryn Parsons VLDL CALC 38.8 mg/dL Normal [facility] Comment on above: Performed By: #### D BEBE, LIPID, FT3, TSH, T4, CMP #### [facility] [address] [address] [address] Eryn Parsons OCC BLD IMMUNO SCREENon 03-22 OCCULT BLOOD Negative Normal NEGATIVE [facility] Comment on above: Performed By: #### O BSCRN #### [facility] [address] [address] [address] Eryn Parsons PROF 14(COMP METB)on 022 Albumin [Mass/Vol] 4.1 g/dL Normal 3.4-5.0 [facility] Comment on above: Performed By: #### D BEBE, LIPID, FT3, TSH, T4, CMP #### [facility] [address] [address] [address] Eryn Parsons Albumin/Globulin [Mass ratio] 1.2 {ratio} Normal [facility] Comment on above: Performed By: #### D BEBE, LIPID, FT3, TSH, T4, CMP #### [facility] [address] [address] [address] Eryn Parsons ALP [Catalytic activity/Vol] 81 U/L Normal 46-116 [facility] Comment on above: Performed By: #### D BEBE, LIPID, FT3, TSH, T4, CMP #### [facility] [address] [address] [address] Eryn Parsons ALT [Catalytic activity/Vol] 64 U/L Critically high 16-63 [facility] Comment on above: Performed By: #### D BEBE, LIPID, FT3, TSH, T4, CMP #### [facility] [address] [address] [address] Eryn Parsons Anion gap [Moles/Vol] 12.2 mmol/L Normal [facility] Comment on above: Performed By: #### D BEBE, LIPID, FT3, TSH, T4, CMP #### [facility] [address] [place] [address] Dr. Eryn Parsons AST [Catalytic activity/Vol] 25 U/L Normal 15-37 [facility] Comment on above: Performed By: #### D BEBE, LIPID, FT3, TSH, T4, CMP #### [facility] [address] [place] [address] Dr. Eryn Parsons Bilirubin [Mass/Vol] 0.4 mg/dL Normal 0.2-1.0 [facility] Comment on above: Performed By: #### D BEBE, LIPID, FT3, TSH, T4, CMP #### [facility] [address] [place] [address] Dr. Eryn Parsons Calcium [Mass/Vol] 9.2 mg/dL Normal 8.5-10.1 [facility] Comment on above: Performed By: #### D BEBE, LIPID, FT3, TSH, T4, CMP #### [facility] [address] [place] [address] Dr. Eryn Parsons Chloride [Moles/Vol] 103 mmol/L Normal 98-107 [facility] Comment on above: Performed By: #### D BEBE, LIPID, FT3, TSH, T4, CMP #### [facility] [address] [place] [address] Dr. Eryn Parsons CO2 [Moles/Vol] 28.7 mmol/L Normal 21.0-32.0 [facility] Comment on above: Performed By: #### D BEBE, LIPID, FT3, TSH, T4, CMP #### [facility] [address] [place] [address] Dr. Eryn Parsons Creatinine [Mass/Vol] 1.00 mg/dL Normal 0.70-1.30 [facility] Comment on above: Performed By: #### D BEBE, LIPID, FT3, TSH, T4, CMP #### [facility] [address] [place] [address] Dr. Eryn Parsons EGFR-AF NEPALESE >60 Normal >=60 [facility] Comment on above: Performed By: #### D BEBE, LIPID, FT3, TSH, T4, CMP #### [facility] [address] [place] [address] Dr. Eryn Parsons EGFR-NON AF NEPALESE >60 Normal >=60 [facility] Comment on above: Performed By: #### D BEBE, LIPID, FT3, TSH, T4, CMP #### [facility] [address] [address] [address] Eryn Parsons Globulin (S) [Mass/Vol] 3.5 g/dL Normal [facility] Comment on above: Performed By: #### D BEBE, LIPID, FT3, TSH, T4, CMP #### [facility] [address] [place] [address] Dr. Eryn Parsons Glucose [Mass/Vol] 97 mg/dL Normal 74-106 [facility] Comment on above: Performed By: #### D BEBE, LIPID, FT3, TSH, T4, CMP #### [facility] [address] [place] [address] Dr. Eryn Parsons Potassium [Moles/Vol] 3.9 mmol/L Normal 3.5-5.1 [facility] Comment on above: Performed By: #### D BEBE, LIPID, FT3, TSH, T4, CMP #### [facility] [address] [place] [address] Dr. Eryn Parsons Protein [Mass/Vol] 7.6 g/dL Normal 6.4-8.2 [facility] Comment on above: Performed By: #### D BEBE, LIPID, FT3, TSH, T4, CMP #### [facility] [address] [address] [address] Eryn Parsons Sodium [Moles/Vol] 140 mmol/L Normal 136-145 [facility] Comment on above: Performed By: #### D BEBE, LIPID, FT3, TSH, T4, CMP #### [facility] [address] [place] [address] Dr. Eryn Parsons Urea nitrogen [Mass/Vol] 14.0 mg/dL Normal 7.0-18.0 [facility] Comment on above: Performed By: #### D BEBE, LIPID, FT3, TSH, T4, CMP #### [facility] [address] [place] [address] Dr. Eryn Parsons Urea nitrogen/Creatinin e [Mass ratio] 14.0 mg/mg Normal [facility] Comment on above: Performed By: #### D BEBE, LIPID, FT3, TSH, T4, CMP #### [facility] [address] [place] [address] Dr. Eryn Parsons T4on 04-04-2022 T4 [Mass/Vol] 7.40 ug/dL Normal 4.50-12.10 [facility] Comment on above: Performed By: #### D BEBE, LIPID, FT3, TSH, T4, CMP #### [facility] [address] [place] [address] Dr. Eryn Parsons TSHon 04-04-2022 TSH 2.794 uIU/mL Normal 0.358-3.740 [facility] Comment on above: Performed By: #### D BEBE, LIPID, FT3, TSH, T4, CMP #### [facility] [address] [place] [address] Dr. Eryn Parsons TSH RANGE SEE BELOW Normal [facility] Comment on above: Result Comment: <0.3 4 UIU/ml HYPERTHYROID 0.34-5.60 UIU/ml EUTHYROID >5.60 UIU/ml HYPOTHYROID Performed By: #### D BEBE, LIPID, FT3, TSH, T4, CMP #### [facility] [address] [place] [address] Dr. Eryn Parsons ED Noteon 02-16-2022 ED Note-Physician Basic Information Time Seen: Carrie Pat PA-C 10/24/2021 12:08 Chief Complaint chest pain started last night around 6pm with L arm numbness/tingling since 0630 this morning. denies SOB. 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 denies N/V/D. History of [...] family history of both CAD, HTN and UT. Review of Systems ROS: Constitutional: Denies fever, [...] Stop d (more content not included)... Normal [facility] Comment on above: Result Comment: Elec [...] for. acid reflux High Cholesterol HTN Normal [facility] General Surgery Office/Clini c Noteon 12-27-2021 [...] PILO Only if needed [address] [place] [address]- Additional Instructions: Problem List/Past Medical History Ongoing [...] influenza virus vaccine, inactivated 08/2021 Recorded Normal [facility] Comment on above: Result Comment: Elec tronically Signed By: CATALINA JACKMAN, Vijaya Cronin\.br\Date and Time Signed: 12/27/21 15:53 EST Pathology Noteon 12-20-2021 Pathology Note [id number]#[id number]:127 Normal [facility] Operative Reporton Operative Report [id number]#[id number]:127 Normal [facility] Consent for Procedure/Surger yon 11-30-2021 Consent for Procedure/Surgery [id number]#[id number]:127 Normal [facility] Ambulatory Visit Summaryon 0 11-29-2021 Ambulatory [...] for. acid reflux High Cholesterol HTN Normal [facility] ECHOCARDIO M/2D COMPLETEon 0 11-21-2021 ECHOCARDIO M/2D COMPLETE Patient: FRANK LUO Exam Date: 11/21/2021 : 1975 Gender:M Ordering : DR SHAINA NORMAN . Admission #: [id number] Family : Order #: [id number] CLICK HERE TO VIEW EXAM ECHOCARDIOGRAM REPORT [...] Area(A4C): 17.20 cm2 Left Atrium Systolic Volume(A2C): 61676 mm3 Left Atrium Systolic Volume(A4C): 54606 mm3 Mitral Valve MV E to A [...] Wilcox M.D. on 11/21/2021 at 15:51 Normal [facility] Physician Referralon 022 Physician Referral [id number]#1.00CD:127 Normal [facility] Coding Summary.on 11-01-2021 Coding Summary. CD:[id number] Gh0bWw+PG hlYWQ+AQ0TERXoC79wwYOaoH1KP0g ZFN0URHZZKVDEJK8SKW7ieJX8OMou B8MvlvAf FnksjSNcRG43IWp9MNE9bNdmOBeip F2wqZRaT0n8OgHoOP63bU50BXrdUT DnJcB8IbVetbepxKVd K6doNmTuoFCsWps+PHRhYmxlIHdpZ EMxWZnmSZBmSxHbrUqfKV1iKt7uQC VyLWNvbGxhcHNlOiBj u9rgFOOvPHayXM0neOjvB8ExeOH0P ACyh7g5Us16cVC+JUUxPTN7vDnvTY aey240DtSbz5euBVP0 hMAbBVtiQJG2J44qc2B1EGZaUUNxG ET7aVU0jP1qjQpgalzbI3XltISgWs V5KUW7fIHalC6vgDqf ockusB0iXrf+F24WYW8WMKVLQQ6ZX by3Y4IkRtqosQW+PJ33GMKtCN01zI KlqPGhc7isaGy0QuLz ZODiRII5rYuzKRcvj7IaDGLzM32wz MWmv0Z8OINrmDkpnKBsZyGmvQN0dL 3mQLpndoxjg9aoqmuk Zopgw9mayv01xP90S05kOXbjTQXnN MB7WNQnSCLdvKovlj1yiC8fFd6+ID aoy8kfm9tobIl3JiRl LMIimpMjyDqrBLM1w7XgHd86R9Fde Hyhh2GqBdw7df90yJYjb5R9tEQ7GC qtHAKmsF7fWBriGpK3 DMQqDmJmtL01gMXvAPhaLm1kkWplm HllJX9eFABdvrljGKPbiL6yVETttJ KiqRdxUL7yAPNomubp k272UvZrORO4JDPomNYcZ7AhmV8dU oIyJINgZLRkR6DaiLVzTKysB096FR itPnR1PYAiarUmE1Ms MGYrtKksIkT4f8W8Sk9Lm6GkevcoW AO9FFdvLGNfWlRcKtSrApQ7G3XpQf m7YWUokBljOU6kZ8Qf AXAbggjewxvlrCP6WBIrBLIlyK45o NGyEZbjGt0rk4A6m884DCGnAPSveP 23Fn5hkHrxSGUstFIJ jK2vaqrtf5qjdvowXeZgBKTrTGe7Q Qh9ODMzcQzeCcQlMPT5WnO8MCH5kK ZvjI3mnJojiyynoH6k Oyc+F31haR2eYEF0ZXD2vxbvTFZvb zWbCW23CA05S1LkWmnttSUrcTJ+PG XuuiGvxVwkZZ2mFvXg f6fjt7InMNzwD3YkQZVpXQowJkx7Y NAkXHO3iXX0vH4uDCVlCWtqh4X7jN G6Q2EgokSlsc6ll0yl LTEvBIpuC54ifNXbu8N5KTExtDS4U FDixDstZwDzfQ14Qjn+PGNvbGdyb3 GdRvshj7isf3tnxOo1 RbShZDHgtfWosVbxUIC0a1LsRn57F 29sIHdpZHRoPSIxNSUiIHZhbGlnbj 2ftY0cWo9+PGNvbCB3 xXV4bQ6rAFMkYiS6AFclF210YhAlv JJeHoybf7wfu3vngOq3PkSbIQGfce VigHcjVYW5v7GnPf39 T97eOYtbJLTtSEUeKSDkCTCqtYsmd o9geK1vKi7+IE7ws8jpvk18bC81uL I+MWMeQBR9fXkzMKmc AKZirX6bPCaoYlT3RFRfOfAwnV87e ZPvJKzxNg6zpGpcxWhfYP1pXPHmzz czf190VxMkf8pqFZTt kRCzGCwjDFV2G83vt3I1AVVpYOKzN GO6cFP6sG0mbAwtsvwpnXYhcDwfmf MssGvcTFhuRYsvR989 UNOotQxlRdMwySfhwxDoNfHoDGl2M 4PiUsm1CQTsxJhfKT4dsQAmVYkjDq 6ixZifeHvwXB1bXCFr fnmlk210AmPvm1aiUJMwtGRbUKafG WK4Q96qx0Q8SARtBCPlVZM2iQN9qI 1hbGlnbjogbGVmdDsg jmQpuVgnDOxpZRnhU107BNKsdOjgY vFkaaWdTWZmdLA5BK67BA32vTMsq7 V0qQA8A6DoLIJwduyt kzgiyWS2CBQrCXVlaY59Fw6crRtnY r0uCYOvFHM9ZGXdsEXtU3RonK4xEt DkBIVjNYZrL8FjeKRb IKetI915LZjzViC3USLbjkPtH7YrY TBwlMsxIeY0k6V5Jt2IJ0H8FF09CC 38rPKcy0P2pCF6E0Ev WCUlzgvicetvtYF2LACcFCAwsA56U i8fsDlrHt0oFPRwCYI9TMVdwLEpQ7 WoqT9oLsFfLUVnUZXk B2QlkNJgEDjdF583NIbcUuG3KZJqf xGpK0RnUSQwwJjmKtW3p9X9Gp5NUA d8BN44NL00jUYmo1M9 fOT2S1EyETGkqxathyibaVM0TOYfD UVpuC57Md4vdGjjWt4qFTPdRWH5IV QheAVdH3BgzZ7wKbBg KMIoIBGmQ8CurDWvGBrlH877BKyrC fI4KZVbscUeO7MyMEDydDwcHfL1q0 A6Yk5HITYeVV87GJG6 nCE2NK39DB92O2FyLwwsoLBqvNM+P HRhYmxlIHdpZHRoPScxMDAlJyBzdH dcYU3vOa1yPFQbSEHt mVuaoLBdDrNmk9dlKQVwGLiaIC6tz IkxG9ThsVF1UIXgg2y6Nx68O79tB2 JvdXA+QEChfOW5nVP9 yF6sJoVhJfH0YPinB924DkBbcNRxM dpxi4apl5dvyCg2JsC9HKSxffAxgR xnAAV2w0RjHa82Y92g QMhuFUArHMYxCUReVPHnbRciuq2tj G9wIi8+JXAsfOU2aYD1bQ7dQdXoTn C6XFlmC935QaRroFEn Ghvjj0ccv9mmxGz7TvYaNUDbfuDzs BtcXUO0t6GwGq31B3AliXxtp2DzDs a3zk16zDIjg4A4wUM6 W7IjIOOhbkggyIWcpZybCH9gXDKkn soxGRShiO4uYNReJ1w6QtTeOoF1RU bnH0NozmY4IABeiCEd BIfySMS1L48uv4R1ZEWtSOAcAZY9d EZ6jX5ltIbammklvIKmhRttkgFmhX qfQHcgKQfhO280RDVd nJhdTBCebV0jXUAulUPfgXyzNI5gT ERkosxtUbZFAOUpGXKDNKTZFMV5S5 HyAfp7TZZhmOxwQQ3w uIIpSXlrSu2orDgqbTuxUL8oRIDgv vkzXGIyjJ6jQPDmfLEhlJfyVF8iNK Khabnej629PnNaKWR8 FXYttJZeW4IvdN6lQeOiXJOiTVZyL 2PzaDPgVMxqL485QOagRjA7RYIxhb GpY5XqFMBmbYusDkG6 e0E1Ce8yAj7wSA7qDRj4BY10HP10v VUcc6I1sSB6Q7MtZQMbckrpvdmhnT K5IOXrZXIilT97cEAm AWeiXr0tc2Q7g518IOIxEWUvfR79A z0gyEzyFGMbuVGXlD2tekysm1zlqt shNtBqXORnUAl4UYs7 WFSktIacDuRiXGS9OiI0SHY2jJTvo E4jeRddxahnkQ5tFcj+NDQgWWVhcn H2G1IqXtz2FYTliSco LD8ofLHiDHcaMm8kbHmtfAvyTX0sE ZOhnoaoGKTtrN2oUUWslWJarZqmAN 9gSWBmjacvh162CbJu DIL3IMYclVPoT3GrqL6cBpJxGJOoT DRfF3HklCEvNKyzI315BOanTrL6YL VputAhX5YdFWEptGwy JmL9y2F6Sp5QUAozQO56TK24yXJdu 1O1fCZ0E1NyRRWjcrxtbbtdvWW9CE AuSKLwcM39yPSjAUfy Oh3jh7R0g495SXOmRDIfnG53Ld2qs GhpJIYumOIAoX5qjhpkz9kgdfdeVg GtVMKpWLx5TBv2ASOs rNkwHuUzRUP2NxO8BMS1rRStiQ1ik LwiwwemnF0rPbf+NJ5vumfdnmP9RJ 37PX10V2IcRgjdbBFi bGU+PHRhYmxlIHdpZHRoPScxMDAlJ hLwuIbaQP8tYy7kYYXeCAFvoTdoaQ UgBoQed5bqSUExFSbs SL2ezVyrQ8YgyOV2FTZpe1x6Jb97J 62iN9MryEL+ZLFfwUQ8gIF6kJ4fMy VjPwV4POdlX606AmDm bOIfXcvim1cyg8rdgAi7YxMqAKDpv bJbsJpsXAC4c4SwMr95U59hFDtkNS RoPSIyMCUiIHZhbGln yr5ofY5yXk9+SSBibGM6iBJ0gJ7xC rDmPqA0PEoqO643XqWpbMQzOvhiR4 7tM6TajHE+PHRyPjx0 TCVdpEtoFC3trNDeWMajJd9eSLF3R gSnJhZgUJlyA0QbHGSpqnxkzqibrD W3KTWrQIXjxB40Pv1e eLrkSb6sJMKqAQV1ZEMefGOlM4Gxy O9fRmOrGEXaIGClM1RyhHDoFLytH4 21VNnaUjL6XTNnrjCw W4BfCKRngYoaGwG2w0O5Ef8OwGzfm UAlKJ1aOlDoOCw7N6SeDvh3HBZkqB eoAN6gqHPoYDibWd2n zYjigShfBC1fDKPbdsuke623DvXft 0mhLOQvzONrLVcdKPE1R69vj6O1HV DjTQOfJOG3yCZ0uC3v bGlnbjogbGVmdDsgdmVydGljYWwtY LcfJ356LOKkwCekOaOKLzn7N6KbYj d2GWJodYzkPM5ccHNm CExoMm1teShqrVjfNI6sBNUeognnp 627ErMcz9amJNQzrZNjEEpzNPI2C1 1lm9P3MISmNMUwQLO4 tBU9dS3ctWqdjkkxfOLctDqaxhUqo TgpARfuQUkfO849DCZmiRjeZh2GKt j3X1IuOqn1RJDhbIyj ZM4qgOFpBCrfUg9pvGyfpWluFP8eV QUkdzmju979UhRaq2vyRBCixOAvCH tfVLJ6K84oz2K9ZNLy JMMzYCC9kQC8hB0igZvocorqzZXdp XfcibWfcRzaAEqkXDmqD368SBRepC snPlBheWVyOjwvdGQ+ NX18be09P6EpFcavNtp6OIDfGWV3n WQ7fS2aHMLqCKwle1V6hYI5U9Ojvn Saqr9wn8yzCKDtRYdx Y29s (more content not included)... Normal [facility] NM STRESS/REST MULTIon 10-27 NM STRESS/REST MULTI Patient: FRANK LUO Exam Date: 10/27/2021 : 1975 Gender:M Ordering : DR SHAINA NORMAN . Admission #: [id number] Family : Order #: [id number] CLICK HERE TO VIEW EXAM RADIOLOGY REPORT [...] Aguero MD on 10/28/2021 at 09:51 Normal [facility] Discharge Instructionson Discharge Instructions [id number] Normal [facility] ED Noteon 10-25-2021 ED Note Basic Information Time Seen: Carrie Pat PA-C 10/24/2021 12:08 Chief Complaint chest pain started last night around 6pm with L arm numbness/tingling since 0630 this morning. denies SOB. 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 denies N/V/D. History of [...] family history of both CAD, HTN and UT. Review of Systems ROS: Constitutional: Denies fever, [...] Stop d (more content not included)... Normal [facility] Auto Diffon 10-24-2021 Basophils/100 WBC (Bld) 0.3 % Normal 0.0-2.0 [facility] Comment on above: Order Comment: Order Added by Discern Expert. Performed By: #### [id number] 9206415, 2801050, 36297117, 4189691, 3869921, 7649317, 89517184 ####[facility] [address] [place] [address] Basophils/Leukocyt es Auto (Bld) [Pure # fraction] 0.0 E9/L Normal 0.0-0.2 [facility] Comment on above: Order Comment: Order Added by Discern Expert. Performed By: #### 1 1130394, 3700625, 5566382, 32291116, 4435285, 2159281, 2851821, 45685784 ####[facility] [address] [place] [address] Eosinophils/100 WBC (Bld) 0.6 % Normal 0.0-8.0 [facility] Comment on above: Order Comment: Order Added by Discern Expert. Performed By: #### 1 4130695, 7690320, 5362184, 51354033, 0940555, 3468799, 9171162, 70774599 ####[address] [place] [address] Eosinophils/Leukoc ytes Auto (Bld) [Pure # fraction] 0.0 E9/L Normal 0.0-0.5 [facility] Comment on above: Order Comment: Order Added by Discern Expert. Performed By: #### 1 6603472, 4246497, 4417944, 51367431, 1258835, 1937828, 0442611, 81183848 ####[address] [place] [address] Lymphocytes/100 WBC (Bld) 24.8 % Normal 14.0-50.0 [facility] Comment on above: Order Comment: Order Added by Discern Expert. Performed By: #### 1 5923244, 2869548, 3502881, 42058543, 1441314, 7376399, 5766901, 84945910 ####[address] [place] [address] Lymphocytes/Leukoc ytes Auto (Bld) [Pure # fraction] 1.8 E9/L Normal 1.0-4.0 [facility] Comment on above: Order Comment: Order Added by Discern Expert. Performed By: #### 1 5507671, 5167173, 1615880, 82086483, 0551662, 7016569, 7236738, 61351799 ####[address] [place] [address] Monocytes/100 WBC (Bld) 5.4 % Normal 4.0-14.0 [facility] Comment on above: Order Comment: Order Added by Maricarmen Expert. Performed By: #### 1 6646089, 8001498, 8664762, 84413610, 4861098, 0630078, 2664268, 31178400 ####[address] [address] Monocytes/Leukocyt es Auto (Bld) [Pure # fraction] 0.4 E9/L Normal 0.2-1.0 [facility] Comment on above: Order Comment: Order Added by Maricarmen Expert. Performed By: #### 1 8321573, 8622999, 5807786, 81430000, 4712029, 4887947, 8297004, 95803980 ####[address] [place] [address] Neutrophils/100 WBC (Bld) 68.9 % Normal 36.0-75.0 [facility] Comment on above: Order Comment: Order Added by Maricarmen Expert. Performed By: #### 1 3974336, 3616550, 5427698, 98072867, 7237605, 0821094, 0684780, 96310768 ####[address] [address] Neutrophils/Leukoc ytes Auto (Bld) [Pure # fraction] 5.0 E9/L Normal 2.0-7.5 [facility] Comment on above: Order Comment: Order Added by Discern Expert. Performed By: #### 1 2125226, 8966308, 3726386, 97117935, 1226046, 3055832, 1445213, 09424586 ####[facility] [address] [place] [address] BMPon 10-24-2021 Creatinine [Mass/Vol] 0.9 mg/dL Normal 0.5-1.3 [facility] Comment on above: Performed By: #### 1 6322443, 3806353, 7214932, 23264528, 2257220, 4522600, 6474102, 71778811 ####[facility] [address] [place] [address] Urea nitrogen [Mass/Vol] 13 mg/dL Normal 5-21 [facility] Comment on above: Performed By: #### 1 1662844, 1807176, 2138365, 32410653, 8186111, 7470834, 7670977, 43228642 ####[facility] [address] [place] [address] Urea nitrogen/Creatinin e [Mass ratio] 14 No Units Normal 10-20 [facility] Comment on above: Performed By: #### 1 1581153, 5886787, 1764597, 71900710, 3803791, 9016619, 5176889, 08739161 ####[facility] [address] [place] [address] Anion gap [Moles/Vol] 19 mmol/L High 6-16 [facility] Comment on above: Performed By: #### 1 7606712, 1362191, 8520095, 95968608, 1502275, 4926316, 9510489, 63183658 ####[facility] [address] [place] [address] Calcium [Mass/Vol] 9.4 mg/dL Normal 8.9-11.1 [facility] Comment on above: Performed By: #### 1 0532764, 5936835, 6055811, 31285171, 7946715, 4839224, 4895026, 61587391 ####[facility] [address] [place] [address] Chloride [Moles/Vol] 99 mmol/L Low 101-111 [facility] Comment on above: Performed By: #### 1 3166800, 7861918, 8837387, 81418521, 8255131, 8789843, 8568162, 50446885 ####[facility] [address] [place] [address] CO2 [Moles/Vol] 21 mmol/L Normal 21-31 [facility] Comment on above: Performed By: #### 1 0489966, 0465117, 0291969, 35526702, 1849121, 1032165, 7430543, 85051630 ####[facility] [address] [place] [address] Glucose [Mass/Vol] 101 mg/dL Normal 55-199 [facility] Comment on above: Result Comment: If t his glucose result represents a fasting glucose, interpretation should refer to the following reference range: 55-99 mg/dL Performed By: #### 1 9031364, 1552742, 4803307, 39975832, 2252924, 6175747, 2021195, 56792449 ####[facility] [address] [place] [address] Potassium [Moles/Vol] 3.9 mmol/L Normal 3.5-5.3 [facility] Comment on above: Performed By: #### 1 9418922, 2955801, 5420777, 32597941, 5767881, 9940578, 2403881, 50386872 ####[facility] [address] [place] [address] Sodium [Moles/Vol] 135 mmol/L Normal 135-145 [facility] Comment on above: Performed By: #### 1 2991823, 5665461, 1047515, 82704344, 6094807, 2461047, 4287463, 57872518 ####[address] [place] [address] CBC w/ Auto Diffon 2 Erythrocyte distribution width (RBC) [Ratio] 14.1 % Normal 10.9-14.2 [facility] Comment on above: Performed By: #### 1 5902671, 8924807, 3127287, 92219977, 3990480, 0677221, 2707294, 38889593 ####[address] [place] [address] Hematocrit (Bld) [Volume fraction] 44.7 % Normal 37.7-49.0 [facility] Comment on above: Performed By: #### 1 0625459, 4745532, 4002290, 04748401, 0276214, 0064414, 1713097, 99518616 ####[address] [place] [address] Hemoglobin (Bld) [Mass/Vol] 15.4 g/dL Normal 13.5-17.5 [facility] Comment on above: Performed By: #### 1 0618807, 8678384, 0656982, 74365434, 6422869, 3291084, 0554445, 11673629 ####[address] [place] [address] MCH (RBC) [Entitic mass] 29.1 pg Normal 27.0-34.0 [facility] Comment on above: Performed By: #### 1 9005972, 3565056, 3174795, 94915460, 9802693, 9846868, 4873672, 67298720 ####[address] [place] [address] MCHC (RBC) [Mass/Vol] 34.4 g/dL Normal 31.4-36.0 [facility] Comment on above: Performed By: #### 1 6381138, 0519478, 3775831, 97062276, 9108294, 3807875, 9628547, 25073487 ####[address] [place] [address] MCV (RBC) [Entitic vol] 84.7 fL Normal 80.0-100.0 [facility] Comment on above: Performed By: #### 1 8034518, 4622531, 4170130, 22399667, 2693327, 4637758, 6609343, 89613179 ####[address] [address] Platelet mean volume (Bld) [Entitic vol] 8.3 fL Normal 6.4-10.8 [facility] Comment on above: Performed By: #### 1 6183775, 2324890, 5942848, 97223549, 4279277, 3164395, 1263798, 53369083 ####[address] [address] Platelets (Bld) [#/Vol] 229.0 E9/L Normal 150.0-500.0 [facility] Comment on above: Performed By: #### 1 5857551, 3476840, 0990553, 80061812, 5539456, 3135368, 5962292, 80809243 ####[address] [address] RBC (Bld) [#/Vol] 5.3 E12/L Normal 4.3-5.9 [facility] Comment on above: Performed By: #### 1 7115394, 6615495, 1820135, 82077185, 1183379, 2575870, 2941708, 25655797 ####[address] [place] [address] WBC corrected for nucl RBC Auto (Bld) [#/Vol] 7.2 E9/L Normal 4.0-11.0 [facility] Comment on above: Performed By: #### 1 3417973, 6010926, 9239387, 44200885, 7142587, 3457539, 8392962, 55734310 ####[facility] [address] [place] [address] CT Head or Brain w/o Contras ton [...] M.D. Transcribed by: YUE Technologist: KASSY Normal [facility] Consent for Treatmenton Consent for Treatment [id number]:127 Normal [facility] D-Dimeron 10-24-2021 Fibrin D-dimer FEU (PPP) [Mass/Vol] <215 Low 215-500 [facility] Comment on above: Result Comment: This [...] infections Liver cirrhosis Performed By: #### 1 7043433, 7170341, 4279568, 90759793, 7641561, 6996417, 6927593, 88017958 ####[facility] [address] [place] [address] ED Clinical Summaryon 2021 ED Clinical Summary [address] [address] ED Clinical Summary Person Information Name: FRANK LUO Fidelina/[facility] Age: 46 Years : 1975 Sex: Male Language: Lebanese PCP: Shaina Norman MD Marital Status: Visit [...] 10/24/2021 17:43:57 10/24/2021 17:43:57 10/24/2021 17:43:57 ADDRESS: [address] [place] [id number] PHYS DOC NOTES: MEDICAL INFORMATION: Prescriptions Given: [...] every day. PATIENT EDUCATION INFORMATION: Instructions: Paresthesia, Vzvo-ay-Xqfc; Nonspecific Chest Pain, Adult, Bpxg-so-Qtys Follow up: With: Address: When: Stacy JACKMAN, Hernandez Castellon [address] [place] [address] In 3 days 10/27/2021 DIAGNOSIS: 1:Chest pain, unspecified; 2:Left arm numbness Normal [facility] ED Patient Education Noteon 10-24-2021 ED [...] these instructions at home: Medicines ? Take eohg-cfn-ehlwsmy and prescription medicines only as told by [...] a heart-healthy diet. A diet and nutrition associate (dietitian) can help you to learn healthy [...] 03/26/2009 Document Revised: 04/10/2019 Document Reviewed: 04/10/2019 [employer] Patient Education ? 2020 [employer] Neurology Paresthesia Paresthesia is a burning [...] in y (more content not included)... Normal [facility] ED Patient Summaryon 022 ED Patient Summary (Inserted Image. Amisha ble to display) [address] [address] Patient Discharge Instructions Person Information Name: FRANK LUO Age: 46 Years Arrival Date: 10/24/2021 11:53:24 Discharge Diagnosis: 1:Chest pain, unspecified; 2:Left arm numbness Primary Care Physician: Shaina Norman MD Provider Information Primary Provider: Jac Doty DO [employer] Coordinator:Carrie Pat PA-C The exam and treatment you received in the Emergency Department were for an urgent problem and are not intended as complete care. It is important that you follow up with a doctor, nurse practitioner, or physician?s guest services assistant for ongoing care. If your symptoms [...] With: Address: When: Stacy JACKMAN, Hernandez Castellon [address] [place] [address] In 3 days 10/27/2021 In the event that this physician does not participate in your insurance network, please consult with your insurance company to find a nearby participating provider. Patient Education Materials: Paresthesia, Klez-ql-Spvy; Nonspecific Chest Pain, Adult, Znkt-fs-Yljp A MESSAGE TO ALL PATIENTS REGARDING OPIOIDS PRESCRIPTION OPIOIDS: WHAT YOU NEED TO KNOW Prescription opioids can be used to help relieve farnjgmh-lr-fgnycr pain and are often prescribed following a [...] be struggling with addiction, tell your health health care legal assistant and ask for guidance or call [facility]? (more content not included)... Normal [facility] Lipase Levelon 10-24-2021 Lipase [Catalytic activity/Vol] 28 U/L Normal 13-58 [facility] Comment on above: Performed By: #### 1 4364780, 0988469, 0150279, 31253368, 8765215, 5606609, 5827560, 24875063 ####[facility] [address] [place] [address] PT & PTTon 10-24-2021 aPTT Coag (PPP) [Time] 32.9 second(s) Normal 25.1-36.5 [facility] Comment on above: Result Comment: Hepa rin therapeutic range (represented by Anti-Factor Xa activity of 0.2 - 0.4 U/mL) corresponds to PTT of 56.6 - 109.0 sec. Performed By: #### 1 5810011, 4084691, 9817495, 75295630, 2161298, 3431545, 4731370, 78941090 ####[facility] [address] [place] [address] INR Coag (PPP) [Relative time] 1.1 {INR} Invalid Interpretation Code [facility] Comment on above: Result Comment: INR results are specifically intended to assess patients stabilized on long-term Anticoagulation therapy suggested INR?s ?Less Intensive Anticoagulation? 2.0 ? 3.0 Conventional Range 3.0 ? 4.5 Performed By: #### 1 4483495, 8448108, 2085945, 66561904, 5890572, 0280214, 7303165, 86696949 ####[facility] [address] [place] [address] PT Coag (PPP) [Time] 12.8 second(s) Normal 10.2-12.9 [facility] Comment on above: Performed By: #### 1 2713686, 5770095, 0855975, 53364954, 7341895, 4073448, 9361492, 91244944 ####[address] [place] [address] Troponin 0 Hr.on 10-24-2021 Troponin I.cardiac [Mass/Vol] ng/mL Low 15.90-38.40 [facility] Comment on above: Result Comment: The 95% CI (Confidence Interval) PPV (Positive Predictive Value) for myocardial infarction in females is 38 pg/mL, in males 51 pg/mL. The results should be used in conjunction with clinical conditions of myocardial infarction. (Access High Sensitivity Troponin I Instructions For Use, [employer], May 2018) Performed By: #### 1 7338303, 5583443, 3802452, 09523538, 4894420, 5315705, 6747644, 81313583 ####[facility] [address] [place] [address] Troponin 3 Hr.on 10-24-2021 Troponin I.cardiac [Mass/Vol] ng/mL Low 15.90-38.40 [facility] Comment on above: Result Comment: The 95% CI (Confidence Interval) PPV (Positive Predictive Value) for myocardial infarction in females is 38 pg/mL, in males 51 pg/mL. The results should be used in conjunction with clinical conditions of myocardial infarction. (Access High Sensitivity Troponin I Instructions For Use, [employer], May 2018) Performed By: #### 1 5813569 ####[address] [address] XR Chest Single Viewon 10-24 XR Chest [...] MD Transcribed by: YUE Technologist: JESSIE Griffith [facility] eGFRon 10-24-2021 GFR/1.73 sq M.predicted among blacks MDRD (S/P/Bld) [Vol rate/Area] mL/min/{1.73_m2} Normal >=59 [facility] Comment on above: Order Comment: Order added by Discern Expert. Result Comment: eGFR is race adjusted. AA=. Performed By: #### 1 3740390, 8412196, 0551972, 28240157, 2486865, 8538065, 8455922, 65755755 ####[facility] [address] [place] [address] GFR/1.73 sq M.predicted among non-blacks MDRD (S/P/Bld) [Vol rate/Area] mL/min/{1.73_m2} Normal >=59 [facility] Comment on above: Order Comment: Order added by Discern Expert. Result Comment: Cam Milling Machine Operator nadine kidney disease could be indicated at eGFR's of less than 60 mL/min/1.73m2. Kidney failure is indicated at less than 15 mL/min/1.73m2. Performed By: #### 1 1641710, 3223600, 2955820, 65865256, 1139653, 2250786, 3044647, 77149676 ####[facility] [address] [place] [address] [facility] April 07, 2021 Shaina Norman, [address] [facility] [place] [address] [place] [address] Re: FRANK LUO Date of : 1975 Thank you for your referral of Frank Luo who was seen on consultation for injury to right alvarado. I have enclosed my consultation notes for your review. I will be happy to follow Frank should his symptoms persist. Sincerely, Vijaya Molina MD General Surgery Normal [facility] Ambulatory Clinical Summaryo n 03-25-2021 Ambulatory Clinical Summary {[id number]}CD:[id number] [facility] Patient Educationon 03-25-20 21 Patient Education [...] health care provider or diet and nutrition associate (dietitian). This may include: ? Eating fewer [...] weight augustin (more content not included)... Normal [facility] Physician Referralon 021 Physician Referral [id number]:127 Normal [facility] XR foot RT min 3V*on 021 XR foot RT min 3V* [facility] [place] [address] [place] [address] XRay Report Signed Patient: Frank Luo MR#: [id number] : 1975 Acct:[id number] Age/Sex: 45 / M ADM Date: 03/17/21 Loc: XDUC Room: Type: [facility] Attending Dr: Shelly Bellamy APRN, HUMAN RESOURCES ASSISTANT-C Ordering Provider: Shelly Bellamy APRN Date of Service: 03/17/21 XR/XR foot RT min 3V*: RIGHT FOOT/ANKLE INJURY ([id number]) XR/XR ankle RT min 3V*: RIGHT FOOT/ANKLE [...] Bolaños Jr., M.D.03/17/2021 6:58 PM Dictation Location: [place] [address] Transcribed By: MARIA FERNANDA 03/17/211857 Dictated By: Brandon Bolaños Jr, MD 03/17/211853 Signed By: 03/17/211857 [facility] Encounters Encounter Date Encounter Type Care Provider Facility Start: 10-10-2022 End: 10-11-[address] SHAINA NORMAN Facility:[facility] Start: 10-03-2022 End: 10-04-[address] SHAINA NORMAN Facility:[facility] Start: 04-06-2022 Encounter for genera l adult medical examination without abnormal findings DR SHAINA NORMAN [facility] Start: 04-04-2022 End: 04-05-2022 ambulatory [...] Facility:[facility] Payers Date Payer Category Payer Unknown [id number] 1975 Unknown [id number] 2..84 [id number] 1975 Unknown [id number] 2.16.84 [id number] 1975 Unknown [id number] 2.16.84 [id number] 1975 Unknown [id number] .16.84 [id number] 1975 Unknown [id number] 2.16.84 [id number] 1975 Unknown [id number] .16.84 [id number] 1957 Self-pay [id number] 1957 Unknown [id number] Clinical Note 12-14-2021 Note Date & Type [...] wound check. CC: Dr. Shaina Norman : [facility] Signed and Approved by: DR VIJAYA MOLINA . 12/20/2021 12:03:00 [facility] Clinical Note 11-29-2021 Note Date & [...] plan excisional biopsy under local anesthesia at [facility] for definitive diagnosis and treatment; informed [...] Status influenza virus vaccine, inactivated 08/2021 Recorded [facility] Comment on above: Result Comment: Eliza [...] Tobacco Use:. Never Smokeless Tobacco Use:., 03/25/2021 [facility] Comment on above: Result Comment: Elec [...] section and content) DATE CREATED AUTHOR 03/26/2021 [facility] DATE CREATED AUTHOR AUTHOR'S ORGANIZ ATION 02/19/2022 [facility] DATE CREATED AUTHOR AUTHOR'S ORGANIZ ATION 10/18/2022 [facility] FOR RECORDS PERTAINING TO PATIENTS WHO [...] BE BASED ON THE PRIMARY CLINICAL RECORDS. [employer] [facility]. provides no warranty or guarantee of the accuracy or completeness of information in this document.
[2025-06-05 10:35] LABS: Free T3 2.79 pg/mL (2.18-3.98); Thyroid Stimulating Hormone 2.341 uIU/mL (0.358-3.740)
== END 2025-06-05 08:55 | disposition home or self-care (01) ==
LOC: LAB 08:56
PROVIDERS: PCP Family Medicine; Visit Provider Family Medicine
DX: R94.6 Abnormal results of thyroid function studies (principal)
CPT/HCPCS: 36415; 84436; 84443; 84481